=== PATIENT | female | born 1980 | race Hispanic/Latino ===

== ENCOUNTER 2019-09-20 12:05 | Emergency (ER) | payer BC, OTHER ==
--- NOTE | 2019-09-20 12:56 | RAD REPORT ---
EXAM DESCRIPTION: Bernie Single View09/20/2019 12:45 pm CLINICAL HISTORY: cough COMPARISON: none FINDINGS: The lungs appear clear of acute infiltrate. The heart is normal size IMPRESSION: No acute abnormalities displayed
--- OUTSIDE RECORDS SUMMARY | 2019-09-20 13:04 | XMS REPORT | Continuity of Care Document ---
:1980 Author Organization [facility] t Address [address] Daniel [address] [place] [id number] Care Team Providers Name Role Phone Unavailable Unavailable Unavailable Problems This patient has no known problems. Allergies, Adverse Reactions, Alerts This patient has no known allergies or adverse reactions. Medications This patient has no known medications. Procedures This patient has no known procedures. Results This patient has no known results.
--- NOTE | 2019-09-20 13:37 | ER ---
Nurse's Notes [facility] Name: Asiya Nye Age: 39 yrs Sex: Female : 1980 Arrival Date: 09/20/2019 Time: 12:08 Bed 13 Private MD: Diagnosis: Acute upper respiratory infection, unspecified Presentation: 09/19 12:11 Chief complaint: Patient states: "I have been having bad headache, my ears are hurting, ca1 chest tightness, nausea and feel real fatigued since Thursday". Denies fever. Reports cough and fever. Reports SOB with chest tightness. Coronavirus screen: Surgical mask placed on patient. Patient moved to private room, placed in contact and droplet isolation with eye protection until further assessment. Patient reports a cough. Patient reports shortness of breath or difficulty breathing. Patient denies measured and/or subjective temperature greater than 100.4F prior to today's visit. Patient denies travel on a cruise ship or to a country the [facility] currently lists as an affected area. Patient denies contact with known and/or suspected case of COVID-19. Ebola Screen: Patient negative for fever greater than or equal to 101.5 degrees Fahrenheit, and additional compatible Ebola Virus Disease symptoms Patient denies exposure to infectious person. Patient denies travel to an Ebola-affected area in the 21 days before illness onset. No symptoms or risks identified at this time. Initial Sepsis Screen: Does the patient meet any 2 criteria? No. Patient's initial sepsis screen is negative. Does the patient have a suspected source of infection? No. Patient's initial sepsis screen is negative. Risk Assessment: Do you want to hurt yourself or someone else? Patient reports no desire to harm self or others. Onset of symptoms was September 20, 2019. 12:11 Method Of Arrival: Ambulatory ca1 12:11 Acuity: ESTEBAN 3 ca1 Triage Assessment: 12:15 Headache History: The patient has had previous headaches and this one is similar to bp previous episodes. General: Appears in no apparent distress. uncomfortable, Behavior is cooperative, appropriate for age, anxious. Pain: Complains of pain in head Pain currently is 4 out of 10 on a pain scale. Pain began 1 day ago. Also complains of no other associated symptoms. EENT: No deficits noted. Reports nasal congestion. Neuro: Level of Consciousness is awake, alert, obeys commands, Oriented to person, place, time, situation, Appropriate for age Reports headache. Cardiovascular: No deficits noted. Respiratory: Reports cough that is. GI: No signs and/or symptoms were reported involving the gastrointestinal system. : No signs and/or symptoms were reported regarding the genitourinary system. Derm: No deficits noted. Musculoskeletal: No deficits noted. 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 - Social history:: Smoking status: Patient denies any tobacco usage or history of. - Family history:: not pertinent. - Hospitalizations: : No recent hospitalization is reported. Screenin:23 Abuse screen: Denies threats or abuse. Denies injuries from another. Nutritional bp screening: No deficits noted. Tuberculosis screening: No symptoms or risk factors identified. Fall Risk None identified. Assessment: 12:23 General: SEE TRIAGE NOTE. bp 14:13 Reassessment: PT D/C HOME AMBULATORY WITH FAMILY, DX WITH ACUTE VIRAL URI. bp Vital Signs: 12:11 BP 141 / 81; Pulse 98; Resp 15 S; Temp 98.9(TE); Pulse Ox 100% on R/A; Weight 130.18 kg ca1 (R); Height 5 ft. 2 in. (157.48 cm) (R); Pain 6/10; 14:00 BP 137 / 85; Pulse 87; Resp 16; Temp 98.9; Pulse Ox 100% ; bp 12:11 Body Mass Index 52.49 (130.18 kg, 157.48 cm) ca1 ED Course: 12:08 Patient arrived in ED. ag5 12:14 Triage completed. ca1 12:15 Jake Dumont MD is Attending Physician. rn 12:15 Arm band placed on right wrist. ca1 12:20 Femi Vega, MARIA ELENA is Primary Nurse. bp 12:23 Patient has correct armband on for positive identification. Bed in low position. Call bp light in reach. Side rails up X2. 12:47 XRAY Chest (1 view) In Process Unspecified. EDMS 14:25 No provider procedures requiring assistance completed. Patient did not have IV access bp during this emergency room visit. Administered Medications: No medications were administered Outcome: 13:36 Discharge ordered by . rn 14:26 Discharged to home ambulatory. bp 14:26 Condition: stable 14:26 Discharge instructions given to patient, Instructed on discharge instructions, follow up and referral plans. Demonstrated understanding of instructions, follow-up care. 14:26 Patient left the ED. bp Addendum: 09/23/2019 10:00 Addendum: Other pt notified of positive COVID results via telephone, by angel Muhammad advised to stay quarantined for 14 days and until symptoms have resolved for 72 hours. Signatures: Dispatcher [employer] EDMS Delilah Naranjo, RN Jake Arnett MD MD rn Peltier, Brian, RN RN bp Acob, Cheryl, RN RN ca1 Gaskin, Ajare ag5
--- NOTE | 2019-09-20 13:37 | EDPHYS ---
Physician Documentation [facility] Name: Asiya Nye Age: 39 yrs Sex: Female : 1980 Arrival Date: 09/20/2019 Time: 12:08 Bed 13 Private MD: ED Physician Jake Dumont HPI: 09/19 12:22 This 39 yrs old Female presents to ER via Ambulatory with complaints of rn Headache, Cough, Sneezing, Chest Pain. 12:23 The patient or guardian reports cough, that is intermittent, described as mild, with no rn sputum, flu symptoms. Onset: The symptoms/episode began/occurred 4 day(s) ago. Severity of symptoms: At their worst the symptoms were mild, in the emergency department the symptoms are unchanged. Modifying factors: The symptoms are alleviated by nothing, the symptoms are aggravated by nothing. Associated signs and symptoms: Pertinent positives: chest pain, earache, rhinorrhea, cough, congestion, sneezing, this patient has no pertinent positive symptoms. The patient has not experienced similar symptoms in the past. The patient has not recently seen a physician. Reports 4 days of cough, sneezing, headache, fatigue, congestion, ears aching. No sick contacts. Has not been tested. No sob. No abd pain/vomiting/diarrhea/rash.. 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 - Social history:: Smoking status: Patient denies any tobacco usage or history of. - Family history:: not pertinent. - Hospitalizations: : No recent hospitalization is reported. ROS: 12:23 Constitutional: Negative for fever, chills, and weight loss, Eyes: Negative for injury, rn pain, redness, and discharge, ENT: + congestion/sneezing/sinus pressure Neck: Negative for injury, pain, and swelling, Cardiovascular: Negative for chest pain, palpitations, and edema, Respiratory: Negative for shortness of breath, wheezing, and pleuritic chest pain, Abdomen/GI: Negative for abdominal pain, nausea, vomiting, diarrhea, and constipation, MS/Extremity: Negative for injury and deformity, Skin: Negative for injury, rash, and discoloration, Neuro: Negative for weakness, numbness, tingling, and seizure. Exam: 12:23 Constitutional: This is a well developed, well nourished patient who is awake, alert, rn and in no acute distress. Head/Face: Normocephalic, atraumatic. ENT: No sinus tenderness, no stridor Neck: Trachea midline, no thyromegaly or masses palpated, and no cervical lymphadenopathy. Supple, full range of motion without nuchal rigidity, or vertebral point tenderness. No Meningismus. Cardiovascular: Regular rate and rhythm. No pulse deficits. Respiratory: Speaking full sentences, no respiratory distress Skin: Warm, dry Neuro: Awake and alert, GCS 15 Vital Signs: 12:11 BP 141 / 81; Pulse 98; Resp 15 S; Temp 98.9(TE); Pulse Ox 100% on R/A; Weight 130.18 kg ca1 (R); Height 5 ft. 2 in. (157.48 cm) (R); Pain 6/10; 14:00 BP 137 / 85; Pulse 87; Resp 16; Temp 98.9; Pulse Ox 100% ; bp 12:11 Body Mass Index 52.49 (130.18 kg, 157.48 cm) ca1 MDM: 12:15 Patient medically screened. rn 13:35 Differential Diagnosis: Bronchitis Influenza Upper Respiratory Infection Sinusitis rn Viral Syndrome Pneumonia. Data reviewed: vital signs, nurses notes, lab test result(s), radiologic studies, plain films, and as a result, I will discharge patient. Counseling: I had a detailed discussion with the patient and/or guardian regarding: the historical points, exam findings, and any diagnostic results supporting the discharge/admit diagnosis, lab results, radiology results, the need for outpatient follow up, to return to the emergency department if symptoms worsen or persist or if there are any questions or concerns that arise at home. Special discussion: I discussed with the patient/guardian in detail that at this point there is no indication for admission to the hospital. It is understood, however, that if the symptoms persist or worsen the patient needs to return immediately for re-evaluation. ED course: COVID sent, strep/flu/CXR neg, most likely viral syndrome, will dc home. . 06/23 12:22 Order name: Strep; Complete Time: 13:35 rn 09/19 12:22 Order name: Flu; Complete Time: 13:35 rn 09/19 12:22 Order name: XRAY Chest (1 view); Complete Time: 13:18 rn 09/19 12:22 Order name: COVID-19 rn 09/19 13:29 Order name: Throat Culture EDME 09/19 12:22 Order name: Droplet/Contact Precautions; Complete Time: 12:27 rn 09/19 12:22 Order name: Labs collected and sent; Complete Time: 12:58 rn 09/19 12:22 Order name: O2 Per Protocol; Complete Time: 12:27 rn Administered Medications: No medications were administered Disposition: 09/20/19 13:36 Discharged to Home. Impression: Acute upper respiratory infection, unspecified. - Condition is Stable. - Discharge Instructions: Upper Respiratory Infection, Adult, Viral Respiratory Infection. - Work release form, Medication Reconciliation Form, Thank You Letter, Antibiotic Education, Prescription Opioid Use form. - Follow up: Private Physician; When: As needed; Reason: Recheck today's complaints, Re-evaluation by your physician. - Problem is new. - Symptoms are unchanged. Signatures: Dispatcher [employer] [facility] Jake Dumont MD MD rn Peltier, Brian, RN RN bp Acob, Cheryl RN RN ca1 Corrections: (The following items were deleted from the chart) 14:26 13:36 09/20/2019 13:36 Discharged to Home. Impression: Acute upper respiratory bp infection, unspecified. Condition is Stable. Forms are Medication Reconciliation Form, Thank You Letter, Antibiotic Education, Prescription Opioid Use. Follow up: Private Physician; When: As needed; Reason: Recheck today's complaints, Re-evaluation by your physician. Problem is new. Symptoms are unchanged. rn
[2019-09-20 14:43] VITALS: TEMP 98.9; O2SAT 100
[2019-09-20 14:45] VITALS: BP 137/85
== END 2019-09-20 14:26 | disposition home or self-care (01) ==
LOC: ER 12:05
DX: U07.1 COVID-19 (principal); J06.9 Acute upper respiratory infection, unspecified
CPT/HCPCS: 87070; 87081; 87804 ×2; 71045; 99283; U0002

== ENCOUNTER 2024-02-09 10:34 | Emergency (ER) | payer BC ==
--- OUTSIDE RECORDS SUMMARY | 2024-02-09 10:38 | XMS REPORT | Continuity of Care Document ---
Author Name Unknown Address [address] [facility] [address] [place] [address] [facility] thconnect Address [address] 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 Role Phone System MD, Provider Not In Primary Care Physicia n Unavailable DUNIA ALVAREZ Attending Clinician DUNIA Hayes Attending Clinician ACOSTA gEan Attending Clinician Unavailable Dunia Alvarez MD Attending Clinician + [phone] RUI CHAPA Attending Clinician Unavailable RUI CHAPA Attending Clinician Unavailable Rui Chapa PA-C Attending Clinician [phone], [facility] Attending Clinician Unavailable FLORY ROMAN Attending Clinician Unavailable FLORY ROMAN Attending Clinician Unavailable [email or web address] Attending Clinician Unavaila shayy Doctor Unassigned, [place] Attending Clinician U navailable KRANTHI MERINO Attending Clinician Unavailable Stephon Hyde Attending Clinician [phone] Kranthi Merino MD Attending Clinician [phone] DHRUV CIFUENTES Attending Clinician Unavailable Dhruv Cifuentes DO Attending Clinician [phone] Michelle Babcock DO Attending Clinician [phone] SHASTA DOUGLAS Attending Clinician Unavailable Shasta Douglas MD Attending Clinician [phone] DUNIA ALVAREZ Admitting Clinician FLORY Puente Admitting Clinician Unavailable [email or web address]_S Admitting Clinician UnavailStephon Loaiza Admitting Clinician Unavailable Payers Payer Name Policy Type Policy Number Effective Date Expirati on Date Source [facility] [id number] 2018 00:00:00 [id number] PPO [id number] 2020 00:00:00 Problems Condition Name Condition Details Condition Category Status Onset Date Resolution Date Last Treatment Date Treating Clinician Comments Source Abnormal uterine bleeding (AUB) Abnormal uterine bleeding (AUB) Disease Active 2023-03 00:00: 00 [facility] Thickened endometriu m Thickened endometriu m Disease Active 2023-03 00:00: 00 [facility] BMI 50.0-59.9, adult BMI 50.0-59.9, adult Disease Active 2019-03 0-14 00:00: 00 [facility] Laceration Laceration Disease Active 2013-03 00:00: 00 [facility] Laceration of flexor tendon of forearm, left, initial encounter Laceration of flexor tendon of forearm, left, initial encounter Disease Active 2013-03 00:00: 00 [facility] Numbness of index finger, left Numbness of index finger, left Disease Active 2013-03 00:00: 00 [facility] Laceration of flexor tendon of forearm, left, initial encounter Laceration of flexor tendon of forearm, left, initial encounter Disease Active 2013-03 00:00: 00 [facility] Anxiety Anxiety Disease Active [facility] Depression Depression Disease Active [facility] Heavy menses Heavy menses Disease Active [facility] Nephrolith iasis Nephrolith iasis Disease Active [facility] Allergies, Adverse Reactions, Alerts Allergy Name Allergy Type Status Severity Reaction(s) Onset Date Inactive Date Treating Clinician Comments Source NO KNOWN ALLERGIE S Drug Class Active [facility] Social History Social Habit Start Date Stop Date Quantity Comments Source Gender identity [facility] Sexual orientation [facility] Alcoholic beverage intake 2024-01-19 00:00:00 2024-01-19 00:00:00 Current drinker of alcohol (finding) [facility] Tobacco use and exposure 2024-01-04 00:00:00 2024-01-04 00:00:00 Smokeless tobacco non-user [facility] History of Social function 2023-12-22 00:00:00 2023-12-22 00:00:00 [facility] Alcohol intake 2023-01-05 00:00:00 2023-01-05 00:00:00 Current drinker of alcohol (finding) [facility] Tobacco Comment 2022-11-04 00:00:00 2022-11-04 00:00:00 5 ciggs a day [facility] Exposure to SARS-CoV-2 (event) 2022-02-04 00:00:00 2022-02-14 17:37:00 Not sure [facility] History SDOH Alcohol Frequency 2020-01-11 00:00:00 2020-01-11 00:00:00 2 [facility] History SDOH Alcohol Std Drinks 2020-01-11 00:00:00 2020-01-11 00:00:00 99 [facility] History SDOH Alcohol Binge 2020-01-11 00:00:00 2020-01-11 00:00:00 99 [facility] Alcohol Comment 2020-01-11 00:00:00 2020-01-11 00:00:00 Social Drinker [facility] History of tobacco use 2015-07-27 00:00:00 Cigarette Smoker [facility] Sex assigned at 1980 00:00:00 1980 00:00:00 [facility] Smoking Status Start Date Stop Date Source Smokes tobacco daily 2024-01-04 00:00:00 [facility] Ex-smoker 2020-01-11 00:00:00 2020-01-11 00:00:00 [facility] Medications Ordered Medication Name Filled Medication Name Start Date Stop Date Current Medication? Ordering Clinician Indication Dosage Frequency Signature (SIG) Comments Components Source ketorolac (TORADOL) injection 30 mg 2022-03 08:15: 00 03-11 07:39 :00 No 30mg 30 mg, Intramuscu lar, ONCE, 1 dose, On Thu03/11/23 at 0215, [facility] oseltamivir (TAMIFLU) capsule 75 mg 2022-03 08:15: 00 03-11 07:36 :00 No 75mg 75 mg, Oral, ONCE NOW, 1 dose, On Thu03/11/23 at 0215, Routine [facility] acetaminoph en (TYLENOL) tablet 650 mg 2022-03 08:15: 00 03-11 07:36 :00 No 650mg 650 mg, Oral, ONCE, 1 dose, On Thu03/11/23 at 0215, [facility] dexamethaso ne sod phos PF injection 10 mg 2022-03 07:45: 00 03-11 07:35 :00 No 10mg 10 mg, Intramuscu lar, ONCE, 1 dose, On Thu03/11/23 at 0145, [address] [facility] oseltamivir (TAMIFLU) 75 mg capsule 2022-03 00:00: 00 03-17 05:59 :00 No [id number] 75mg Take 1 capsule by mouth in the morning and 1 capsule in the evening. Do all this for [address] [facility] phenyleph-D M-acetamin- guaifen (MUCINEX FAST-MAX COLD-FLU) 10-20-650 mg/20 mL Liqd 2022-03 00:00: 00 03-17 05:59 :00 No [id number] 20mL Take 20 mL by mouth 4 (four) times daily for [address] [facility] benzocaine- menthoL (CEPACOL SORE THROAT, YVON-MEN,) lozenge 2022-03 00:00: 00 03-17 05:59 :00 No [id number] 1{lozen ge} Take 1 Lozenge by mouth every 4 (four) hours as needed for Sore throat for up to [address] [facility] MAGNESIUM ORAL 11-04 16:39: 14 01-03 00:00 :00 No Take by mouth. [facility] losartan 25 mg tablet 09-24 00:00: 00 01-03 00:00 :[address] [facility] amoxicillin -clavulanat e (AUGMENTIN) 875-125 mg per tablet 1 tablet 2021-03 03:45: 00 02-15 02:34 :00 No 1{tbl} 1 tablet, Oral, ONCE, 1 dose, On Thu02/14/22 at 2145, Routine
Reason for Anti-Infec tive: Documented Infection< br>Documen gary Infection Site: HEENT
D uration of Therapy: [address] [facility] iopamidol (ISOVUE 370-500 mL) injection 79 mL 2021-03 01:45: 00 02-15 02:00 :00 No [id number] 79mL 79 mL, Intravenou s, ONCE, 1 dose, On Thu02/14/22 at 2000, Routine [facility] amoxicillin -clavulanat e 875-125 mg per tablet 2021-03 00:00: 00 01-03 00:00 :00 No [id number] 1{tbl} Take 1 tablet by mouth every 12 (twelve) hours. [facility] methylPREDN ISolone (MEDROL, FANTA,) 4 mg tablets 09-04 00:00: 00 01-03 00:00 :00 No [id number] Take by mouth SEE-INSTRU CTIONS. follow package directions [facility] naproxen sodium (ANAPROX DS) 550 mg tablet 09-04 00:00: 00 01-03 00:00 :00 No [id number] 550mg Take 1 tablet by mouth 2 (two) times daily with meals. [facility] L-Tyrosine 500 MG capsule 08-24 16:00: 09 Yes Take by mouth. [facility] Methylcobal gallegos (V41-[id number] PO) 08-24 16:00: 09 Yes Take by mouth. [facility] L-Tyrosine 500 MG capsule 08-24 11:00: 09 Yes Take by mouth. [facility] Methylcobal gallegos (B95-FRRJAO PO) 08-24 11:00: 09 Yes Take by mouth. [facility] traZODONE (DESYREL) 50 mg tablet 2019-03 21:01: 09 Yes 50mg Take 50 mg by mouth at bedtime. [facility] MAGNESIUM ORAL 2019-03 21:01: 09 Yes Take by mouth. [facility] MAGNESIUM ORAL 2019-03 16:01: 09 Yes Take by mouth. [facility] traZODONE (DESYREL) 50 mg tablet 2019-03 16:01: 09 01-03 00:00 :00 No 50mg Take 50 mg by mouth at bedtime. [facility] ibuprofen 600 mg tablet 2018-03 00:00: 00 01-03 00:00 :00 No [id number] 600mg Take 1 tablet by mouth every 6 (six) hours as needed for Pain (scale 4-6). [facility] cyclobenzap rine 10 mg tablet 2018-03 00:00: 00 01-03 00:00 :00 No [id number] 10mg Take 1 tablet by mouth 3 (three) times daily. [facility] ondansetron 4 mg disintegrat ing tablet 2018-03 00:00: 00 01-03 00:00 :00 No [id number] 4mg Take 1 tablet by mouth every 8 (eight) hours as needed for Nausea and Vomiting (N/V). [facility] traZODONE (DESYREL) 50 mg tablet 04-11 16:32: 02 Yes 50mg Take 50 mg by mouth at bedtime. [facility] docusate (COLACE) 100 mg capsule 2013-03 00:00: 00 01-03 00:00 :00 No 100mg Take 1 Cap by mouth daily. [facility] acetaminoph en-codeine (TYLENOL #3) 300-30 mg tablet 2013-03- 00:00: 00 01-03 00:00 :00 No 1{tbl} Take 1 Tab by mouth every 4 (four) hours as needed for Pain (scale 4-6). [facility] FERROUS SULFATE 300 (60) MG ORAL TAB 05-07 00:00: 00 01-03 00:00 :00 No Take one tablet by mouth twice daily [facility] Vital Signs Vital Name Observation Time Observation Value Comments S ource Systolic blood pressure 2024-01-19 13:12:00 127 mm[Hg] [facility] Diastolic blood pressure 2024-01-19 13:12:00 79 mm[Hg] [facility] Heart rate 2024-01-19 13:12:00 78 /min [facility] Respiratory rate 2024-01-19 13:12:00 18 /min [facility] Body height 2024-01-19 13:12:00 157.5 cm [facility] Body weight 2024-01-19 13:12:00 112.175 kg [facility] BMI 2024-01-19 13:12:00 45.23 kg/m2 [facility] Systolic blood pressure 2024-01-11 18:00:00 160 mm[Hg] [facility] Diastolic blood pressure 2024-01-11 18:00:00 99 mm[Hg] [facility] Heart rate 2024-01-11 18:00:00 80 /min [facility] Respiratory rate 2024-01-11 18:00:00 14 /min [facility] Oxygen saturation in Arterial blood by Pulse oximetry 2024-01-11 18:00:00 100 /min [facility] Body temperature 2024-01-11 15:21:00 36.89 Pia [facility] Body height 2024-01-11 15:21:00 157.5 cm [facility] Body weight 2024-01-11 15:21:00 111.131 kg [facility] BMI 2024-01-11 15:21:00 44.81 kg/m2 [facility] Systolic blood pressure 2024-01-08 14:25:00 164 mm[Hg] [facility] Diastolic blood pressure 2024-01-08 14:25:00 98 mm[Hg] [facility] Heart rate 2024-01-08 14:24:00 76 /min [facility] Body temperature 2024-01-08 14:24:00 36.33 Pia [facility] Respiratory rate 2024-01-08 14:24:00 18 /min [facility] Body height 2024-01-08 14:24:00 152.4 cm [facility] Body weight 2024-01-08 14:24:00 112.855 kg [facility] BMI 2024-01-08 14:24:00 48.59 kg/m2 [facility] Systolic blood pressure 2024-01-04 18:35:00 131 mm[Hg] [facility] Diastolic blood pressure 2024-01-04 18:35:00 87 mm[Hg] [facility] Heart rate 2024-01-04 18:35:00 87 /min [facility] Body temperature 2024-01-04 18:35:00 36.72 Pia [facility] Respiratory rate 2024-01-04 18:35:00 18 /min [facility] Body height 2024-01-04 18:35:00 152.4 cm [facility] Body weight 2024-01-04 18:35:00 112.946 kg [facility] BMI 2024-01-04 18:35:00 48.63 kg/m2 [facility] Systolic blood pressure 2023-12-22 13:49:00 131 mm[Hg] [facility] Diastolic blood pressure 2023-12-22 13:49:00 81 mm[Hg] [facility] Heart rate 2023-12-22 13:49:00 75 /min [facility] Body temperature 2023-12-22 13:49:00 36.67 Pia [facility] Respiratory rate 2023-12-22 13:49:00 18 /min [facility] Body height 2023-12-22 13:49:00 152.4 cm [facility] Body weight 2023-12-22 13:49:00 113.581 kg [facility] BMI 2023-12-22 13:49:00 48.90 kg/m2 [facility] Oxygen saturation in Arterial blood by Pulse oximetry 2023-12-22 13:49:00 100 /min [facility] Systolic blood pressure 2023-03-11 07:57:00 129 mm[Hg] [facility] Diastolic blood pressure 2023-03-11 07:57:00 81 mm[Hg] [facility] Heart rate 2023-03-11 07:57:00 103 /min [facility] Body temperature 2023-03-11 07:57:00 38.22 Pia [facility] Respiratory rate 2023-03-11 07:57:00 18 /min [facility] Oxygen saturation in Arterial blood by Pulse oximetry 2023-03-11 07:57:00 95 /min [facility] Body height 2023-03-11 07:19:00 152.4 cm [facility] Body weight 2023-03-11 07:19:00 128.368 kg [facility] BMI 2023-03-11 07:19:00 55.27 kg/m2 [facility] Systolic blood pressure 2023-01-05 18:51:00 130 mm[Hg] [facility] Diastolic blood pressure 2023-01-05 18:51:00 75 mm[Hg] [facility] Heart rate 2023-01-05 18:51:00 85 /min [facility] Body temperature 2023-01-05 18:51:00 37.06 Pia [facility] Respiratory rate 2023-01-05 18:51:00 17 /min [facility] Body height 2023-01-05 18:51:00 157.5 cm [facility] Body weight 2023-01-05 18:51:00 135.172 kg [facility] BMI 2023-01-05 18:51:00 54.50 kg/m2 [facility] Systolic blood pressure 2022-11-04 21:37:00 135 mm[Hg] [facility] Diastolic blood pressure 2022-11-04 21:37:00 80 mm[Hg] [facility] Heart rate 2022-11-04 21:37:00 87 /min [facility] Respiratory rate 2022-11-04 21:37:00 18 /min [facility] Body height 2022-11-04 21:37:00 157.5 cm [facility] Body weight 2022-11-04 21:37:00 136.986 kg [facility] BMI 2022-11-04 21:37:00 55.24 kg/m2 [facility] Systolic blood pressure 2022-02-14 23:38:00 170 mm[Hg] [facility] Diastolic blood pressure 2022-02-14 23:38:00 94 mm[Hg] [facility] Heart rate 2022-02-14 23:38:00 87 /min [facility] Body temperature 2022-02-14 23:38:00 37.17 Pia [facility] Respiratory rate 2022-02-14 23:38:00 20 /min [facility] Body weight 2022-02-14 23:38:00 129.275 kg [facility] BMI 2022-02-14 23:38:00 52.13 kg/m2 [facility] Oxygen saturation in Arterial blood by Pulse oximetry 2022-02-14 23:38:00 99 /min [facility] Body temperature 2021-09-04 17:46:00 37.17 Pia [facility] Respiratory rate 2021-09-04 17:46:00 18 /min [facility] Body height 2021-09-04 17:46:00 [facility] 2021-09-04 17:46:00 139.254 kg [facility] BMI 2021-09-04 17:46:00 56.15 kg/m2 [facility] Oxygen saturation in Arterial blood by Pulse oximetry 2021-09-04 17:46:00 96 /min [facility] Systolic blood pressure 2021-09-04 17:46:00 144 mm[Hg] [facility] Diastolic blood pressure 2021-09-04 17:46:00 104 mm[Hg] [facility] Heart rate 2021-09-04 17:46:00 94 /min [facility] Body height 2020-12-06 14:45:[facility] Body weight 2020-12-06 14:45:00 139[facility] BMI 2020-12-06 14:45:00 55.27 [facility]2 [facility] Systolic blood pressure 2020-08-24 15:59:00 134 mm[Hg] [facility] Diastolic blood pressure 2020-08-24 15:59:00 84 mm[Hg] [facility] Heart rate 2020-08-24 15:59:00 94 /min [facility] Body temperature 2020-08-24 15:59:00 37.56 Pia [facility] Body height 2020-08-24 15:59:00 158.8 cm [facility] Body weight 2020-08-24 15:59:00 136.578 [facility] BMI 2020-08-24 15:59:00 54.19 [facility]m2 [facility] Systolic blood pressure 2020-01-11 21:21:00 132 mm[Hg] [facility] Diastolic blood pressure 2020-01-11 21:21:00 90 mm[Hg] [facility] Heart rate 2020-01-11 20:55:00 95 /min [facility] Body temperature 2020-01-11 20:55:00 36.89 Pia [facility] Respiratory rate 2020-01-11 20:55:00 20 /min [facility] Body height 2020-01-11 20:55:00 157.5 cm [facility] Body weight 2020-01-11 20:55:00 133.811 kg [facility] BMI 2020-01-11 20:55:00 53.96 kg/m2 [facility] Systolic blood pressure 2020-01-11 21:21:00 132 mm[Hg] [facility] Diastolic blood pressure 2020-01-11 21:21:00 90 mm[Hg] [facility] Heart rate 2020-01-11 20:55:00 95 /min [facility] Body temperature 2020-01-11 20:55:00 36.89 Pia [facility] Respiratory rate 2020-01-11 20:55:00 20 /min [facility] Body height 2020-01-11 20:55:00 157.5 cm [facility] Body weight 2020-01-11 20:55:00 133.811 kg [facility] BMI 2020-01-11 20:55:00 53.96 kg/m2 [facility] Procedures Procedure Date / Time Performed Performing Clinician Source POCT TEST 2024-01-11 15:58:00 Rui Chapa [facility] COMP. METABOLIC PANEL ([id number]) 2024-01-11 15:54:00 Charu Chapashua [facility] CBC WITH DIFF 2024-01-11 15:54:00 Rui Chapa [facility] URINALYSIS 2024-01-11 15:54:[address] [facility] HB ABO GROUPING 2024-01-11 15:54:00 Rui Chapa [facility] POCT TEST 2024-01-04 00:00:00 Annie abraham Dunia [facility] US PELVIS COMPLETE WITH TRANSVAGINAL 2023-12-31 14:08:32 Antonio [facility] BI ULTRASOUND BREAST LIMITED RIGHT 2023-12-04 16:57:07 Antonio [facility] BI DIAGNOSTIC TOMOSYNTHESIS BILATERAL 2023-12-04 16:08:03 Antonio [facility] BI ULTRASOUND BREAST LIMITED RIGHT 2023-06-05 15:26:39 Mortensen-Armando, Dunia [facility] BI DIAGNOSTIC TOMOSYNTHESIS RIGHT 2023-06-05 15:01:34 Antonio Dunia [facility] XR CHEST 2 VW 2023-03-11 07:28:22 Flory Roman [facility] RAPID STREP SCREEN FOR GROUP A 2023-03-11 07:20:00 Flory Roman [facility] RAPID INFLUENZA A/B 2023-03-11 07:20:00 Amairani Roman [facility] NOTICE OF PRIVACY PRACTICES 2023-03-11 07:11:31 Doctor Unassigned, [place] [facility] CONSENT/REFUSAL FOR DIAGNOSIS AND TREATMENT 2023-03-11 07:10:48 Doctor Unassigned, [place] [facility] BI ULTRASOUND BREAST COMPLETE BILATERAL 2022-12-11 20:14:28 Antonio [facility] BI DIAGNOSTIC TOMOSYNTHESIS RIGHT 2022-12-11 19:31:34 Antonio [facility] ASSIGNMENT OF BENEFITS 2022-11-04 21:11:30 Docto r Unassigned, [place] [facility] CT MAXILLOFACIAL/MANDIBLE W CONTRAST 2022-02-15 01:53:43 Stephon Lopez Yareli [facility] COMP. METABOLIC PANEL ([id number]) 2022-02-15 01:34:00 Stephon Lopez [facility] CBC WITH DIFF 2022-02-15 01:34:00 Stephon Lopez [facility] CONSENT/REFUSAL FOR DIAGNOSIS AND TREATMENT 2022-02-14 23:17:48 Doctor Unassigned, [place] [facility] MAGNESIUM 2021-09-04 18:44:00 Dhruv Cifuentes [facility] COMP. METABOLIC PANEL ([id number]) 2021-09-04 18:44:00 Dhruv Cifuentes [facility] CBC WITH DIFF 2021-09-04 18:44:00 Dhruv Cifuentes [facility] URINALYSIS 2021-09-04 18:44:00 Dhruv Cifuentes [facility] NOTICE OF PRIVACY PRACTICES 2021-09-04 17:35:45 Doctor Unassigned, [place] [facility] CONSENT/REFUSAL FOR DIAGNOSIS AND TREATMENT 2021-09-04 17:33:55 Doctor Unassigned, [place] [facility] COMPREHENSIVE METABOLIC PANEL 2020-08-24 00:00:00 [facility] LIPID PANEL 2020-08-24 00:00:00 [facility] VITAMIN B12 2020-08-24 00:00:00 [facility] FOLATE 2020-08-24 00:00:00 [facility] HEMOGLOBIN A1C 2020-08-24 00:00:00 [facility] PTH, INTACT 2020-08-24 00:00:00 [facility] VITAMIN E 2020-08-24 00:00:00 [facility] VITAMIN A 2020-08-24 00:00:00 [facility] VITAMIN B1, WHOLE BLOOD 2020-08-24 00:00:00 [facility] IRON AND TIBC 2020-08-24 00:00:00 [facility] TSH W/REFLEX TO FT4 2020-08-24 00:00:00 [facility] CBC (INCLUDES DIFF/PLT) (REFL) 2020-08-24 00:00:00 [facility] QUESTASSURED 25-OH VIT D, (D2,D3) 2020-08-24 00:00:00 [facility] NO SHOW OR MISSED APPOINTMENT POLICY ACKNOWLEDGEMENT 2020-01-11 20:15:36 Doctor Unassigned, [place] [facility] Encounters Start Date/Time End Date/Time Encounter Type Admission Type Attending Clinicians Care Facility Care Department Encounter ID Source 2024-01-19 14:13:16 Outpatient DUNIA JEONG [facility] [id number] [facility] 2020-08-24 13:48:25 Outpatient ACOSTA CORTES [facility] [id number] [facility] 2024-03-04 15:30:00 2024-03-04 15:30:00 Outpatient [place] [id number] 2024-02-19 15:00:00 2024-02-19 15:00:00 Outpatient R MORTENSEN-HILARIO S, DUNIA [facility]AR[id number] 2024-01-19 00:00:00 2024-01-19 10:41:22 [facility] [id number] [facility] 2024-01-19 08:15:00 2024-01-19 08:20:29 Outpatient R TIMUR-HILARIO S, DUNIA TIMUR[facility]HILARIO S, [facility] [id number] [facility] 2024-01-19 08:15:00 2024-01-19 08:20:29 [facility] 1..114 [id number] [facility] 2024-01-11 10:24:00 2024-01-11 13:28:00 Emergency X RUI CHAPA [facility] [id number] [facility] 2024-01-11 10:24:00 2024-01-11 13:28:00 Emergency Rui Chapa [facility] [id number] [id number] [facility] 2024-01-11 00:00:00 2024-01-11 13:17:39 [facility] [id number] [id number] [id number] [facility] 2024-01-08 09:30:00 2024-01-08 09:46:13 Outpatient R MORTENSEN-HILARIO S, DUNIA MORTENSEN-HILARIO S, DUNIA [facility] [id number] [facility] 2024-01-08 09:30:00 2024-01-08 09:46:13 Office Visit Mortensen-Hilario s, Dunia [facility] 1.2.840.114 350.1.13.10 4.2.7.2.[id number] [facility] 2024-01-04 14:00:00 2024-01-04 14:10:10 Outpatient R MORTENSEN-HILARIO S, DUNIA MORTENSEN-HILARIO S, DUNIA [facility] [id number] [facility] 2024-01-04 14:00:00 2024-01-04 14:10:10 Office Visit Mortensen-Hilario s, Dunia [facility] 1.2.840.114 350.1.13.10 4.2.7.2.[id number] [facility] 2023-12-31 08:26:41 2023-12-31 23:59:00 Outpatient R MORTENSEN-HILARIO S, DUNIA MORTENSEN-HILARIO S, DUNIA [facility] [id number] [facility] 2023-12-31 08:26:41 2023-12-31 23:59:00 Hospital Encounter Mortensen-Hilario s, Dunia [facility] 1.2.840.114 350.1.13.10 4.2.7.2.[id number] [facility] 2023-12-22 09:30:00 2023-12-22 09:45:00 Bullet Swaging Machine Adjuster Visit 2, Adc Lab Mortensen-Hilario s, Dunia 2, Adc Lab [facility] 1.2.840.114 350.1.13.10 4.2.7.2.[id number] [facility] 2023-12-22 08:45:00 2023-12-22 09:04:42 Outpatient R MORTENSEN-HILARIO S, DUNIA MORTENSEN-HILARIO S, DUNIA [facility] [id number] [facility] 2023-12-22 08:45:00 2023-12-22 09:04:42 Office Visit Mortensen-Hilario sJohannaDunia [facility] 1.2.840.114 350.1.13.10 4.2.7.2.[id number] [facility] 2023-12-17 11:00:00 2023-12-17 11:00:00 Outpatient R MORTENSEN-HILARIO S, DUNIA MORTENSEN-HILARIO S, DUNIA [facility] [id number] [facility] 2023-12-04 10:30:00 2023-12-04 23:59:00 Hospital Encounter Mortensen-Hilario s, Dunia [facility] 1.2840.114 350.1.13.10 4.2.7.2.[id number] [facility] 2023-12-04 10:04:48 2023-12-04 10:29:00 Outpatient R MORTENSEN-HILARIO S, DUNIA MORTENSEN-HILARIO S, DUNIA [facility] [id number] [facility] 2023-12-04 10:04:48 2023-12-04 10:29:00 Hospital Encounter Mortensen-Hilario s, Dunia [facility] 1.2.840.114 350.1.13.10 4.2.7.2.[id number] [facility] 2023-06-05 08:09:32 2023-06-05 23:59:00 Hospital Encounter Elda bay [facility] 1.2.840.114 350.1.13.10 4.2.7.2.[id number] [facility] 2023-06-05 08:08:56 2023-06-05 08:08:56 Outpatient R ELDA S, DUNIA ELDA S, [facility] [id number] [facility] 2023-06-05 08:08:56 2023-06-05 08:08:56 Hospital Encounter Elda s [facility] 1.2.840.114 350.1.13.10 4.2.7.2.[id number] [facility] 2023-06-05 00:00:00 2023-06-05 00:00:00 [facility] 1.2.840.114 350.1.13.10 4.2.7.2.[id number] [facility] 2023-03-11 01:22:00 2023-03-11 01:59:00 Emergency [facility] ERT [id number] [facility] 2023-03-11 01:22:00 2023-03-11 01:59:00 Emergency Harrison, [facility] 1.2.840.114 350.1.13.10 4.2.7.2.[id number] [facility] 2023-01-28 00:00:00 2023-01-28 00:00:00 Outpatient GC_GCBZW_Ka diyala_S [facility] [id number] [facility] 2023-01-05 14:00:00 2023-01-05 14:30:00 Office Visit [facility]Dun[facility] 1..840.114 350.1.13.10 4.2.7.2.[id number] [facility] 2023-01-05 14:00:00 2023-01-05 14:00:00 Outpatient R MORTENSEN-HILARIO S, DUNIA MORTENSEN-HILARIO S, DUNIA [facility] [id number] [facility] 2022-12-12 00:00:00 2022-12-12 00:00:00 Case Management Mortensen-Hilario sJohannaDunia [facility] 1.84.114 350.1.13.10 4.2.7.2.[id number] [facility] 2022-12-11 13:35:47 2022-12-11 23:59:00 Outpatient R MORTENSEN-HILARIO S, DUNIA MORTENSEN-HILARIO S, DUNIA [facility] [id number] [facility] 2022-12-11 13:35:47 2022-12-11 23:59:00 Hospital Encounter Mortensen-Hilario s, Dunia [facility] 1..840.114 350.1.13.10 4.2.7.2.[id number] [facility] 2022-12-11 13:34:52 2022-12-11 13:34:52 Hospital Encounter Mortensen-Hilario s, Dunia [facility] 1.840.114 350.1.13.10 4.2.7.2.[id number] [facility] 2022-11-21 00:00:00 2022-11-21 00:00:00 Case Management Mortensen-Hilario s, Dun[facility] 1.2840.114 350.1.13.10 4.2.7.2.[id number] [facility] 2022-11-13 11:31:14 2022-11-13 23:59:00 Hospital Encounter Mortensen-Hilario sJohannaDunia [facility] 1.2840.114 350.1.13.10 4.2.7.2.[id number] [facility] 2022-11-13 11:30:56 2022-11-13 11:30:56 Outpatient R MORTENSEN-HILARIO S, DUNIA MORTENSEN-HILARIO S, DUNIA [facility] [id number] [facility] 2022-11-13 11:30:56 2022-11-13 11:30:56 Hospital Encounter Mortensen-Hilario s, Dunia [facility] 1.2840.114 350.1.13.10 4.2.7.2.[id number] [facility] 2022-11-04 16:30:00 2022-11-04 16:54:11 Outpatient R MORTENSEN-HILARIO S, DUNIA MORTENSEN-HILARIO S, DUNIA [facility] [id number] [facility] 2022-11-04 16:30:00 2022-11-04 16:54:11 Office Visit Mortensen-Hilario s, Dunia [facility] 1.2840.114 350.1.13.10 4.2.7.2.[id number] [facility] 2022-11-04 00:00:00 2022-11-04 00:00:00 Orders Only Doctor Unassigned, [facility] 1.2840.114 350.1.13.10 4.2.7.2.[id number] [facility] 2022-07-14 14:00:00 2022-07-14 14:00:00 Outpatient R MORTENSEN-HILARIO S, DUNIA TIMUR-HILARIO S, DUNIA [facility] [id number] [facility] 2022-02-14 17:39:00 2022-02-14 20:46:00 Emergency X KRANTHI MERINO [facility] ERT [id number] [facility] 2022-02-14 17:39:00 2022-02-14 20:46:00 Emergency Stephon Lopez Brent J [facility] 1.2.840.114 350.1.13.10 4.2.7.2.[id number] [facility] 2021-09-04 12:48:00 2021-09-04 14:57:00 Emergency DHRUV BARNES [facility] ERT [id number] [facility] 2021-09-04 12:48:00 2021-09-04 14:57:00 Emergency Dhruv Cifuentes [facility] 1.2.840.114 350.1.13.10 4.2.7.2.[id number] [facility] 2021-03-20 00:00:00 2021-03-20 00:00:00 Telephone Yoko Michelle [facility] 1.2.840.114 350.1.13.58 9.2.7.2.686 [id number] [facility] 2021-01-11 10:00:00 2021-01-11 10:00:00 Outpatient R SHASTA DOUGLAS [facility] [id number] [facility] 2020-12-06 09:36:47 2020-12-06 10:22:45 Nutrition Acosta Cortes [facility] AND [facility]OM[facility] 1.2.840.114 350.1.13.58 9.2.7.2.686 [id number] [facility] 2020-09-04 00:00:00 2020-09-04 00:00:00 Telephone Michelle Babcock [facility] 1.2.840.114 350.1.13.58 9.2.7.2.686 [id number] [facility] 2020-08-24 10:37:13 2020-08-24 12:23:35 Office Visit Michelle Babcock [facility] [place] [facility] AND WOMENS 1.2.840.114 350.1.13.58 9.2.7.2.686 [id number] [facility] 2020-01-23 00:00:00 2020-01-23 00:00:00 Telephone AdShasta chatterjee [facility] [place] [facility] 1.2.840.114 350.1.13.10 4.2.7.2.[id number] [facility] 2020-01-23 00:00:00 2020-01-23 00:00:00 Telephone AdShsata chatterjee [facility] [place] [facility] 1.2.840.114 350.1.13.10 4.2.7.2.686 [id number] 2020-01-11 15:16:42 2020-01-11 16:34:49 Office Visit Adum, Shasta Chatterjee [facility] [place] [facility] 1.2.840.114 350.1.13.10 4.2.7.2.[id number] [facility] 2020-01-11 15:16:42 2020-01-11 16:34:49 Office Visit Adum, Shasta Chatterjee [facility] 1.2.840.114 350.1.13.10 4.2.7.2.686 [id number] 2020-01-11 15:30:00 2020-01-11 15:30:00 Outpatient R ADUM SHASTA [facility] [id number] [facility] 2020-01-11 00:00:00 2020-01-11 00:00:00 Orders Only Doctor Unassigned, [facility] 1.2.840.114 350.1.13.10 4.2.7.2.[id number] [facility] Results Test Description Test Time Test Comments Results Result Co mments Source [facility] [id number] 18:59:00* Test Item Value Reference Range Interpretation Comme nts POCT PREG (test code = 1605) Negative On board controls acceptable with C Line (test code = 3574) Yes POCT PREG LOT # (test code = 3575) POCT PREG TEST DATE ( test code = 3576) [facility] COMPLETE WITH [id number] 14:16:16HISTORY: ?AUB. TECHNIQUE: Both transabdominal and transvaginal pelvic ultrasound studieswere completed by the technologist. FINDINGS: Comparison has been made with previous ultrasound study of11/13/2022. Uterus is of normal size and shape, measures approximately 8.5 x 5.0 x 6.3cm in size with homogeneous echo texture of the myometrium. Small nabothiancysts are seen in the cervix, the largest is 15mm . Largest nabothian cystcontains thick mildly echogenic lesion of secretions. Endometrial echo complex is 15 mm ?(video image #47 out of 170 of longsection). No free fluid in the cul-de-sac. Rightovary is 3.6 x 2.6 x 1.9 cm ( 9.16 ml) and left ovary is 2.8 x 2.1 x1.7 cm ( 5.08 ml). CONCLUSIONS: Thickened endometrial stripe with heterogeneous echogenicity,suggestive of cystic endometrial hyperplasia.[facility] ULTR[facility] BREAST LIMITED [id number] 20:12:13Examination:BI DIAGNOSTIC TOMOSYNTHESIS BILATERALBI ULTRASOUND BREAST LIMITED RIGHT History:Patientis 43 year old and is seen for 6-month follow-up of multiple right breast findings:1. Again noted is a ridge of normal-appearing breast tissue with associated superimposed cysts in the right breast at 1:00, 15 cm from the nipple; favored to correlate with the stable appearing asymmetry in the superior right breast, posterior depth which is best seen on RS MLO image 57 of 99 and R MLO image 62 of 89. Short interval follow-up ultrasound is recommended in 6 months (at the time of annual bilateral mammogram) to document stability x 1 year. BI-RADS 3.2. Again noted is a stable appearing 12 mm complicated cyst versus mass in the right breast at 4:00, 5 cm from the nipple. Short interval follow-upultrasound is recommended in 6 months (at the time of annual bilateral mammogram) to document stability x 1 year. BI- RADS 3. Computer-aided detection (CAD) utilized. Comparisons: 06/05/2023 BI DIAGNOSTIC TOMOSYNTHESIS RIGHT, 06/05/2023 BI ULTRASOUND BREAST LIMITED RIGHT, 12/11/2022 BI ULTRASOUND BREAST COMPLETE BILATERAL, 12/11/2022 BI DIAGNOSTIC TOMOSYNTHESIS RIGHT, and 11/13/2022 BI SCREENING TOMOSYNTHESIS BILATERAL Findings:The breasts are heterogeneously dense, which may obscure small masses. LeftBI DIAGNOSTIC TOMOSYNTHESIS BILATERALThere is no evidence of suspicious masses, calcifications, or other abnormal findings in the left breast. There are multiple, bilateral, oval benign-appearing masses. ?The ultrasound performed in 2022 demonstrated multiple cysts. RightBI DIAGNOSTIC TOMOSYNTHESIS BILATERALThere has been no interval change of the asymmetry in the upper central breast, posterior depth, 15 cm from the nipple ( R MLO 55/91). BI ULTRASOUND BREAST LIMITED RIGHTTargeted ultrasound of the right breast and axilla was performed. There are numerous similar-appearing subcentimeter cysts at 1 o'clock, 15 cm from the nipple, correlating with the mammographic finding. There is a stable 1.2 x 1.2 x 0.5 cm oval circumscribed hypoechoic mass at 4 o'clock, 5 cm from nipple. There zi normal-appearing axillary level I lymph node. Impression: One year stability of the numerous right breast subcentimeter cysts at 1 o'clock, 15 cm from the nipple and of the right breast 1.2 cm oval circumscribed hypoechoic mass at 4 o'clock, 5 cm from the nipple. Follow-up imaging in 12 months isrecommended to establish two years of stability. BIRADS 3. No left mammographic evidence of malignancy. Recommendation:Annual mammographic follow-up - Leftort interval follow-up ultrasound 12 months - RightShort interval follow-up mammogram 12 months - Right These findings and recommendations were discussed in detail with the patient at the conclusion of today's examination. BI-RADS Category: Left 2 - BenignRight 3 - Probably Benign I, Pratik Mcconnell MD ?personally reviewed the study and agree with the resident's/fellow's report.[facility] DIAGNOST[facility] T[facility]YNTHES[facility] [id number] 20:12:13Examination:BI DIAGNOSTIC TOMOSYNTHESIS BILATERALBI ULTRASOUND BREAST LIMITED RIGHT History:Patientis 43 year old and is seen for 6-month follow-up of multiple right breast findings:1. Again noted is a ridge of normal-appearing breast tissue with associated superimposed cysts in the right breast at 1:00, 15 cm from the nipple; favored to correlate with the stable appearing asymmetry in the superior right breast, posterior depth which is best seen on RS MLO image 57 of 99 and R MLO image 62 of 89. Short interval follow-up ultrasound is recommended in 6 months (at the time of annual bilateral mammogram) to document stability x 1 year. BI-RADS 3.2. Again noted is a stable appearing 12 mm complicated cyst versus mass in the right breast at 4:00, 5 cm from the nipple. Short interval follow-upultrasound is recommended in 6 months (at the time of annual bilateral mammogram) to document stability x 1 year. BI-RADS 3. Computer-aided detection (CAD) utilized. Comparisons: 06/05/2023 BI DIAGNOSTIC TOMOSYNTHESIS RIGHT, 06/05/2023 BI ULTRASOUND BREAST LIMITED RIGHT, 12/11/2022 BI ULTRASOUND BREAST COMPLETE BILATERAL, 12/11/2022 BI DIAGNOSTIC TOMOSYNTHESIS RIGHT, and 11/13/2022 BI SCREENING TOMOSYNTHESIS BILATERAL Findings:The breasts are heterogeneously dense, which may obscure small masses. LeftBI DIAGNOSTIC TOMOSYNTHESIS BILATERALThere is no evidence of suspicious masses, calcifications, or other abnormal findings in the left breast. There are multiple, bilateral, oval benign-appearing masses. ?The ultrasound performed in 2022 demonstrated multiple cysts. RightBI DIAGNOSTIC TOMOSYNTHESIS BILATERALThere has been no interval change of the asymmetry in the upper central breast, posterior depth, 15 cm from the nipple ( R MLO 55/91). BI ULTRASOUND BREAST LIMITED RIGHTTargeted ultraso und of the right breast and axilla was performed. There are numerous similar- appearing subcentimeter cysts at 1 o'clock, 15 cm from the nipple, correlating with the mammographic finding. There is a stable 1.2 x 1.2 x 0.5 cm oval circumscribed hypoechoic mass at 4 o'clock, 5 cm from nipple. There zi normal- appearing axillary level I lymph node. Impression: One year stability of the numerous right breast subcentimeter cysts at 1 o'clock, 15 cm from the nipple and of the right breast 1.2 cm ovalcircumscribed hypoechoic mass at 4 o'clock, 5 cm from the nipple. Follow-up imaging in 12 months isrecommended to establish two years of stability. BIRADS 3. No left mammographic evidence of malignancy. Recommendation:Annual mammographic follow-up - LeftShort interval follow-up ultrasound 12 months - RightShort interval follow-up mammogram 12 months - Right These findings and recommendations were discussed in detail with the patient at the conclusion of today's examination. BI-RADS Category: Left 2 - BenignRight 3 - Probably Benign I, Pratik Mcconnell MD ?personally reviewed the stud y and agree with the resident's/fellow's report.[facility] hospital ULTRASOUND BREAST LIMITED [id number] 17:13:21Examination:BI DIAGNOSTIC TOMOSYNTHESIS RIGHTBI ULTRASOUND BREAST LIMITED RIGHT History:Patient is 43 year old and is seen for: ?Fu. ? Comparisons: 12/11/2022 BI DIAGNOSTIC TOMOSYNTHESIS RIGHT and 11/13/2022 BI SCREENING TOMOSYNTHESIS BILATERAL Prior exam with the following findings: Right: - Thereis a ?ridge of fibroglandular breast tissue with confluent innumerable subcentimeter simple cysts seen at 1 o'clock in the posterior depth, 15 cm from the nipple. This favor to correlate with the mammogram findings. Short term follow up 3D mammogram and ultrasound in 6 months is recommended to document stability and exclude an underlying abnormality. -A 13 mm oval, parallel, hypoechoic mass at 4 o'clock, 5 cm from the nipple. ?Short term follow up ultrasound in 6 months is recommended to document stability CURRENT EXAM: ? Findings:BI DIAGNOSTIC TOMOSYNTHESIS RIGHTThe right breast is heterogeneously dense, which may obscure small masses. Again noted is a stable appearing asymmetry in the superior right breast, posterior depth. This is best seen on RSMLO image 57 of 99 and RMLO image 62 of 89. Again noted are scattered oval circumscribed benign-appearing masses throughout the right breast. BI ULTRASOUND BREAST LIMITED RIGHTTargeted right breast ultrasound was obtained. Again noted is a stable appearing 40 mm ridge of breast tissue with superimposed cysts in the breast at 1 o'clock, 15cm from the nipple. ?This is favored to correlate with the stable appearing mammographic asymmetry in the superior right breast, posterior depth. ?No associated vascularity is noted. Again noted at 4:00, 5 cm from the nipple is a 11 x 5 x 12 mm complicated cyst versus mass (this previously [id number] mm in greatest dimension); accounting for differences in sonographic technique this appears stable in appearance since the prior exam. The visualized level 1 axillary lymph nodes appear unremarkabl e. Impression: Right: 1. ?Again noted is a ridge of normal-appearing breast tissue with associated superimposed cysts in the right breast at 1:00, 15 cm from the nipple; favored to correlate with thestable appearing asymmetry in the superior right breast, posterior depth which is best seen on RS MLO image 57 of 99 and R MLO image 62 of 89. ?Short interval follow-up ultrasound is recommended in 6months (at the time of annual bilateral mammogram) to document stability x 1 year. ?BI-RADS 3. 2. ?Again noted is a stable appearing 12 mm complicated cyst versus mass in the right breast at 4:00, 5 cm from the nipple. ?Short interval follow-up ultrasound is recommended in 6 months (at the time of annual bilateral mammogram) to document stability x 1 year. ?BI-RADS 3. Recommendation:Short interval follow-up ultrasound 6 months - Right ? Clinical follow-up is also recommended, and further management of clinical findings should be based on the results of clinical evaluation. BI-RADS Category: Right 3 - Probably Benign [facility] acute hospital DIAGNOSTIC TOMOSYNTHESIS [id number] 17:13:21Examination:BI DIAGNOSTIC TOMOSYNTHESIS [facility] ULTRASOUND BREAST LIMITED RIGHT History:Patient is 43 year old and is seen for: ?Fu. ? Comparisons: 12/11/2022 BI DIAGNOSTIC TOMOSYNTHESIS RIGHT and 11/13/2022 BI SCREENING TOMOSYNTHESIS BILATERAL Prior exam with the following findings: Right: - Thereis a ?ridge of fibroglandular breast tissue with confluent innumerable subcentimeter simple cysts seen at 1 o'clock in the posterior depth, 15 cm from the nipple. This favor to correlate with the mammogram findings. Short term follow up 3D mammogram and ultrasound in 6 months is recommended to document stability and exclude an underlying abnormality. -A 13 mm oval, parallel, hypoechoic mass at 4 o'clock, 5 cm from the nipple. ?Short term follow up ultrasound in 6 months is recommended to document stability CURRENT EXAM: ? Findings:BI DIAGNOSTIC TOMOSYNTHESIS RIGHTThe right breast is heterogeneously dense, which may obscure small masses. Again noted is a stable appearing asymmetry in the superior right breast, posterior depth. This is best seen on RSMLO image 57 of 99 and RMLO image 62 of 89. Again noted are scattered oval circumscribed benign-appearing masses throughout the right breast. BI ULTRASOUND BREAST LIMITED RIGHTTargeted right breast ultrasound was obtained. Again noted is a stable appearing 40 mm ridge of breast tissue with superimposed cysts in the breast at 1 o'clock, 15cm from the nipple. ?This is favored to correlate with the stable appearing mammographic asymmetry in the superior right breast, posterior depth. ?No associated vascularity is noted. Again noted at 4:00, 5 cm from the nipple is a 11 x 5 x 12 mm complicated cyst versus mass (this previously [id number] mm in greatest dimension); accounting for differences in sonographic technique this appears stable in appearance since the prior exam. The visualized level 1 axillary lymph nodes appear unremarkable. Impression: Right: 1. ?Again noted is a ridge of normal-appearing breast tissue with associated superimposed cysts in the right breast at 1:00, 15 cm from the nipple; favored to correlate with thestable appearing asymmetry in the superior right breast, posterior depth which is best seen on RS MLO image 57 of 99 and R MLO image 62 of 89. ?Short interval follow-up ultrasound is recommended in 6 months (at the time of annual bilateral mammogram) to document stability x 1 year. ?BI-RADS 3. 2. ?Again noted is a stable appearing 12 mm complicated cyst versus mass in the right breast at 4:00, 5 cm from the nipple. ?Short interval follow-up ultrasound is recommended in 6 months (at the time of annual bilateral mammogram) to document stability x 1 year. ?BI-RADS 3. Recommendation:Short interval follow-up ultrasound 6 months - Right ? Clinical follow-up is also recommended, and further management of clinical findings should be based on the results of clinical evaluation. BI-RADS Category: Right 3 - Probably Benign [facility]. METABOLIC PANEL ([id number])2022-02-15 02:10:44* Test Item Value Reference Range Interpretation Comme nts NA (test code = 3573147508) 141 mmol/L 135-145 K (test code = 9029321585) 4.1 mmol/L 3.5-5.0 CL (test code = 1395522511) 105 mmol/L 98-108 CO2 TOTAL (test code = 1923816044) 28 mmol/L 23-31 AGAP (test code = 4255395071) 2-16 BUN (test code = 7939139127) 18 mg/dL 7-23 GLUCOSE (test code = 3082030611) 103 mg/dL 70-110 CREATININE (test code = 6841799753) 0.76 mg/dL 0.50-1.04 TOTAL BILI (test code = 0912583678) 0.5 mg/dL 0.1-1.1 CALCIUM (test code = 7727108867) 9.7 mg/dL 8.6-10.6 T PROTEIN (test code = 5220120340) 7.6 g/dL 6.3-8.2 ALBUMIN (test code = 4123796593) 4.5 g/dL 3.5-5.0 ALK PHOS (test code = 7817171560) 84 U/L 34-122 ALTv (test code = 1742-6) 21 U/L 5-35 AST(SGOT) (test code = 1507108249) 21 U/L 13-40 eGFR (test code = 4296660990) mL/min/1.73m2 FLORENCIA (test code = FLORENCIA) Association of Glomerular Filtration Rate (GFR) and Staging of Kidney Disease* + + +- +| GFR (mL/min/1.73 m2) ?| With Kidney Damage ?| ?Without Kidney Damage+ ------+ ----+ ------+| ?>90 ?| ?Stage one ?| ? Normal ?+ -+ + -+| ?60-89 ?| ?Stage two ?| ? Decreased GFR ? + + +- +| ?30-59 ?| ?Stage three ?| ? Stage three ? + + +- +| ?15-29 ?| ?Stage four ? | ? Stage four ?+ -+ + -+| ?<15 (or dialysis) ? ?| ?Stage five ? | ? Stage five ?+ -+ + -+ *Each stage assumes the associated GFR level has been in effect for at least three months. ?Stages 1 to 5, with or without kidney disease, indicate chronic kidney disease. Notes: Determination of stages one and two (with eGFR >59mL/min/1.73 m2) requires estimation of kidney damage for at least three months as defined by structural or functional abnormalities of the kidney, manifested by either:Pathological abnormalities or Markers of kidney damage (including abnormalities in the composition of the blood or urine or abnormalities in imaging tests). [facility] WITH [id number] 01:47:57* Test Item Value Reference Range Interpretation Comme nts WBC (test code = 6690-2) See_Comment [mVisum] The system which generated this result transmitted reference range: 4.30 - 11.10 10*3/?L. The reference range was not used to interpret this result as normal/abnormal. RBC (test code = 789-8) See_Comment [mVisum] The system which generated this result transmitted reference range: 3.93 - 5.25 10*6/?L. The reference range was not used to interpret this result as normal/abnormal. HGB (test code = 718-7) 11.2 g/dL 11.6-15.0 L HCT (test code = 4544-3) 36.6 % 35.7-45.2 MCV (test code = 787-2) 82.2 fL 80.6-95.5 MCH (test code = 785-6) 25.2 pg 25.9-32.8 L MCHC (test code = 786-4) 30.6 g/dL 31.6-35.1 L RDW-SD (test code = 43173-1) 43.5 fL 39.0-49.9 RDW-CV (test code = 788-0) 14.6 % 12.0-15.5 PLT (test code = 777-3) See_Comment H [Automated messa ge] The system which generated this result transmitted reference range: 166 - 358 10*3/?L. The reference range was not used to interpret this result as normal/abnormal. MPV (test code = 56525-4) 9.4 fL 9.5-12.9 L NRBC/100 WBC (test code = 2073306216) See_Comment [Automated [employer] ssage] The system which generated this result transmitted reference range: 0.0 - 10.0 /100 WBCs. The reference range was not used to interpret this result as normal/abnormal. NRBC x10^3 (test code = 8380239007) See_Comment [Automated messa ge] The system which generated this result transmitted reference range: 10*3/?L. The reference range was not used to interpret this result as normal/abnormal. GRAN MAT (NEUT) % (test code = 770-8) 59.2 % IMM GRAN % (test code = 4014591552) 0.50 % LYMPH % (test code = 736-9) 25.4 % MONO % (test code = 5905-5) 7.6 % EOS % (test code = 713-8) 6.2 % BASO % (test code = 706-2) 1.1 % GRAN MAT x10^3(ANC) (test code = 9845089673) 5.77 10*3/uL 1.88-7.09 IMM GRAN x10^3 (test code = 4445222583) 0.05 10*3/uL 0.00-0.06 LYMPH x10^3 (test code = 731-0) 2.47 10*3/uL 1.32-3.29 MONO x10^3 (test code = 742-7) 0.74 10*3/uL 0.33-0.92 EOS x10^3 (test code = 711-2) 0.60 10*3/uL 0.03-0.39 H BASO x10^3 (test code = 704-7) 0.11 10*3/uL 0.01-0.07 H Lab Interpretation (test code = 08030-7) [facility] 19:13:31* Test Item Value Reference Range Interpretation Comme nts MAGNESIUM (test code = 2008869946) 1.8 mg/dL 1.7-2.4 Lab Interpretation (test cod e = 53622-3) Normal [facility]OL[facility] PAN[facility] (29689)2021-09-04 19:13:11* Test Item Value Reference Range Interpretation Comme nts NA (test code = 0330530633) 140 mmol/L 135-145 K (test code = 9827451395) 4.3 mmol/L 3.5-5.0 CL (test code = 0619859861) 104 mmol/L 98-108 CO2 TOTAL (test code = 5366974269) 25 mmol/L 23-31 AGAP (test code = 9785339739) 2-16 BUN (test code = 8597783353) 12 mg/dL 7-23 GLUCOSE (test code = 0712633544) 90 mg/dL 70-110 CREATININE (test code = 9178263289) 0.70 mg/dL 0.50-1.04 TOTAL BILI (test code = 0582012348) 0.8 mg/dL 0.1-1.1 CALCIUM (test code = 1854516666) 9.5 mg/dL 8.6-10.6 T PROTEIN (test code = 3005747527) 7.5 g/dL 6.3-8.2 ALBUMIN (test code = 6207650510) 4.4 g/dL 3.5-5.0 ALK PHOS (test code = 9773869262) 86 U/L 34-122 ALTv (test code = 1742-6) 21 U/L 5-35 AST(SGOT) (test code = 0398080038) 22 U/L 13-40 eGFR (test code = 6323534275) mL/min/1.73m2 FLORENCIA (test code = FLORENCIA) Association of Glomerular Filtration Rate (GFR) and Staging of Kidney Disease* + + +- +| GFR (mL/min/1.73 m2) ?| With Kidney Damage ?| ?Without Kidney Damage+ ------+ ----+ ------+| ?>90 ?| ?Stage one ?| ? Normal ?+ -+ + -+| ?60-89 ?| ?Stage two ?| ? Decreased GFR ? + + +- +| ?30-59 ?| ?Stage three ?| ? Stage three ? + + +- +| ?15-29 ?| ?Stage four ? | ? Stage four ?+ -+ + -+| ?<15 (or dialysis) ? ?| ?Stage five ? | ? Stage five ?+ -+ + -+ *Each stage assumes the associated GFR level has been in effect for at least three months. ?Stages 1 to 5, with or without kidney disease, indicate chronic kidney disease. Notes: Determination of stages one and two (with eGFR >59mL/min/1.73 m2) requires estimation of kidney damage for at least three months as defined by structural or functional abnormalities of the kidney, manifested by either:Pathological abnormalities or Markers of kidney damage (including abnormalities in the composition of the blood or urine or abnormalities in imaging tests). [facility] WITH [id number] 18:53:44* Test Item Value Reference Range Interpretation Comme nts WBC (test code = 6690-2) See_Comment [mVisum] The system which generated this result transmitted reference range: 4.30 - 11.10 10*3/?L. The reference range was not used to interpret this result as normal/abnormal. RBC (test code = 789-8) See_Comment [mVisum] The system which generated this result transmitted reference range: 3.93 - 5.25 10*6/?L. The reference range was not used to interpret this result as normal/abnormal. HGB (test code = 718-7) 11.7 g/dL 11.6-15.0 HCT (test code = 4544-3) 37.0 % 35.7-45.2 MCV (test code = 787-2) 83.1 fL 80.6-95.5 MCH (test code = 785-6) 26.3 pg 25.9-32.8 MCHC (test code = 786-4) 31.6 g/dL 31.6-35.1 RDW-SD (test code = 80175-3) 42.6 fL 39.0-49.9 RDW-CV (test code = 788-0) 14.0 % 12.0-15.5 PLT (test code = 777-3) See_Comment [Automated [employer] ge] The system which generated this result transmitted reference range: 166 - 358 10*3/?L. The reference range was not used to interpret this result as normal/abnormal. MPV (test code = 55223-0) 9.1 fL 9.5-12.9 L NRBC/100 WBC (test code = 4260884290) See_Comment [Automated [employer] ssage] The system which generated this result transmitted reference range: 0.0 - 10.0 /100 WBCs. The reference range was not used to interpret this result as normal/abnormal. NRBC x10^3 (test code = 0054246792) <0.01 See_Comment [Automated [employer] ge] The system which generated this result transmitted reference range: 10*3/?L. The reference range was not used to interpret this result as normal/abnormal. GRAN MAT (NEUT) % (test code = 770-8) 60.8 % IMM GRAN % (test code = 7287415682) 0.40 % LYMPH % (test code = 736-9) 26.5 % MONO % (test code = 5905-5) 7.3 % EOS % (test code = 713-8) 4.1 % BASO % (test code = 706-2) 0.9 % GRAN MAT x10^3(ANC) (test code = 8191183055) 4.14 10*3/uL 1.88-7.09 IMM GRAN x10^3 (test code = 7426867042) 0.03 10*3/uL 0.00-0.06 LYMPH x10^3 (test code = 731-0) 1.81 10*3/uL 1.32-3.29 MONO x10^3 (test code = 742-7) 0.50 10*3/uL 0.33-0.92 EOS x10^3 (test code = 711-2) 0.28 10*3/uL 0.03-0.39 BASO x10^3 (test code = 704-7) 0.06 10*3/uL 0.01-0.07 Lab Interpretation (test code = 61677-7) [facility]CLUD[facility]FF[facility]PLT[facility] (REFL)2020-08-25 11:00:00* Test Item Value Reference Range Interpretation Comme nts WHITE BLOOD CELL COUNT (test code = 6690-2) See_Comment [Automated message] The system which generated this result transmitted reference range: 3.8 - 10.8 Thousand/uL. The reference range was not used to interpret this result as normal/abnormal. RED BLOOD CELL COUNT (test code = 789-8) See_Comment [Automated message] The system which generated this result transmitted reference range: 3.80 - 5.10 Million/uL. The reference range was not used to interpret this result as normal/abnormal. HEMOGLOBIN (test code = 718-7) 11.7 g/dL 11.7-15.5 HEMATOCRIT (test code = 4544-3) 36.8 % 35.0-45.0 MCV (test code = 787-2) 81.1 fL 80.0-100.0 MCH (test code = 785-6) 25.8 pg 27.0-33.0 L MCHC (test code = 786-4) 31.8 g/dL 32.0-36.0 L RDW (test code = 788-0) 13.7 % 11.0-15.0 PLATELET COUNT (test code = 777-3) See_Comment [Automated message] The system which generated this result transmitted reference range: 140 - 400 Thousand/uL. The reference range was not used to interpret this result as normal/abnormal. MPV (test code = 776-5) 9.4 fL 7.5-12.5 ABSOLUTE NEUTROPHILS (test code = 751-8) See_Comment [Automated message] The system which generated this result transmitted reference range: 1500 - 7800 cells/uL. The reference range was not used to interpret this result as normal/abnormal. ABSOLUTE LYMPHOCYTES (test code = 731-0) See_Comment [Automated message] The system which generated this result transmitted reference range: 850 - 3900 cells/uL. The reference range was not used to interpret this result as normal/abnormal. ABSOLUTE MONOCYTES (test code = 742-7) See_Comment [Automated message] The system which generated this result transmitted reference range: 200 - 950 cells/uL. The reference range was not used to interpret this result as normal/abnormal. ABSOLUTE EOSINOPHILS (test code = 711-2) See_Comment [Automated message] The system which generated this result transmitted reference range: 15 - 500 cells/uL. The reference range was not used to interpret this result as normal/abnormal. ABSOLUTE BASOPHILS (test code = 704-7) See_Comment [Automated message] The system which generated this result transmitted reference range: 0 - 200 cells/uL. The reference range was not used to interpret this result as normal/abnormal. NEUTROPHILS (test code = 770-8) 69.7 % LYMPHOCYTES (test code = 736-9) 21 % MONOCYTES (test code = 5905-5) 6.1 % EOSINOPHILS (test code = 713-8) 2.2 % BASOPHILS (test code = 706-2) 1 % RAC (test code = RAC) Performing Organization Information: ? ?Site ID: RGA ? ?Name: [employer] [place] ? ?Address: [address] [place] [address] ? ?Director: KY MADISON MD Lab Interpretation (test code = 49276-5) [facility]normal [facility] [id number] 11:00:00* Test Item Value Reference Range Interpretation Comme nts GLUCOSE (test code = 2345-7) 80 mg/dL 65-99 ? Fastin g reference interval UREA NITROGEN (BUN) (test code = 3094-0) 12 mg/dL 7-25 CREATININE (test code = 2160-0) 0.66 mg/dL 0.50-1.10 eGFR NON- (test code = 11166-3) See_Comment [Automated message] The system which generated this result transmitted reference range: > OR = 60 mL/min/1.73m2. The reference range was not used to interpret this result as normal/abnormal. eGFR (test code = 87097-7) See_Comment [Automated message] The system which generated this result transmitted reference range: > OR = 60 mL/min/1.73m2. The reference range was not used to interpret this result as normal/abnormal. BUN/CREATININE RATIO (test code = 3097-3) NOT APPLICABLE See_Comment [Automated message] The system which generated this result transmitted reference range: 6 - 22 (calc). The reference range was not used to interpret this result as normal/abnormal. SODIUM (test code = 2951-2) 139 mmol/L 135-146 POTASSIUM (test code = 2823-3) 4.3 mmol/L 3.5-5.3 CHLORIDE (test code = 2075-0) 102 mmol/L 98-110 CARBON DIOXIDE (test code = 2027-9) 28 mmol/L 20-32 CALCIUM (test code = 90039-4) 9.5 mg/dL 8.6-10.2 PROTEIN, TOTAL (test code = 2885-2) 7.4 g/dL 6.1-8.1 ALBUMIN (test code = 1751-7) 4.2 g/dL 3.6-5.1 GLOBULIN (test code = 84248-9) See_Comment [Automated message] The system which generated this result transmitted reference range: 1.9 - 3.7 g/dL (calc). The reference range was not used to interpret this result as normal/abnormal. ALBUMIN/GLOBULIN RATIO (test code = 1759-0) See_Comment [Automated message] The system which generated this result transmitted reference range: 1.0 - 2.5 (calc). The reference range was not used to interpret this result as normal/abnormal. BILIRUBIN, TOTAL (test code = 1975-2) 0.8 mg/dL 0.2-1.2 ALKALINE PHOSPHATASE (test code = 6768-6) 77 U/L 31-125 AST (test code = 1920-8) 14 U/L 10-30 ALT (test code = 1742-6) 18 U/L 6-29 RAC (test code = RAC) Performing Organization Information: ? ?Site ID: RGA ? ?Name: [employer] [place] ? ?Address: [address] [place] [phone] ? ?Director: KY MADISON MD [id number] 11:00:00* Test Item Value Reference Range Interpretation Comme nts FOLATE, SERUM (test code = 2284-8) 16.7 ng/mL ? Reference Range ? Low: ? <3.4 ? Borderline: ? ?3.4-5.4 ? Normal: ?>5.4 RAC (test code = RAC) Performing Organization Information: ? ?Site ID: RGA ? ?Name: [employer] [place] ? ?Address: [address] [place] [phone] ? ?Director: KY MADISON MD [facility] [id number] 11:00:00* Test Item Value Reference Range Interpretation Comme nts HEMOGLOBIN A1c (test code = 4548-4) See_Comment For the purpose of screening for the presence ofdiabetes: <5.7% ? ? ? Consistent with the absence of diabetes5.7-6.4% ? ?Consistent with increased risk for diabetes ?(prediabetes)> or =6.5% ?Consistent with diabetes This assay result is consistent with a decreased riskof diabetes. Currently, no consensus exists regarding use ofhemoglobin A1c for diagnosis of diabetes in children. According to [place] Diabetes Association (ADA)guidelines, hemoglobin A1c <7.0% represents optimalcontrol in non- diabetic patients. Differentmetrics may apply to specific patient populations. Standards of Medical Care in Diabetes(ADA). ? [Automated message] The system which generated this result transmitted reference range: <5.7 % of total Hgb. The reference range was not used to interpret this result as normal/abnormal. RAC (test code = RAC) Performing Organization Information: ? ?Site ID: RGA ? ?Name: [employer] [place] ? ?Address: [address] [place] [phone] ? ?Director: KY MADISON MD [facility] and [id number] 11:00:00* Test Item Value Reference Range Interpretation Comme nts IRON, TOTAL (test code = 2498-4) See_Comment [Automated message] The system which generated this result transmitted reference range: 40 - 190 mcg/dL. The reference range was not used to interpret this result as normal/abnormal. IRON BINDING CAPACITY (test code = 2500-7) See_Comment [Automated message] The system which generated this result transmitted reference range: 250 - 450 mcg/dL (calc). The reference range was not used to interpret this result as normal/abnormal. % SATURATION (test code = 2502-3) See_Comment L [Automated message] The system which generated this result transmitted reference range: 16 - 45 % (calc). The reference range was not used to interpret this result as normal/abnormal. RAC (test code = RAC) Performing Organization Information: ? ?Site ID: RGA ? ?Name: [employer] [place] ? ?Address: [address] [place] [phone] ? ?Director: KY MADISON MD Lab Interpretation (test code = 11140-5) Abnormal [facility] [id number] 11:00:00* Test Item Value Reference Range Interpretation Comme nts CHOLESTEROL, TOTAL (test code = 2093-3) 200 mg/dL <200 H HDL CHOLESTEROL (test code = 2085-9) 47 mg/dL See_Comment L [Automated message] The system which generated this result transmitted reference range: > OR = 50. The reference range was not used to interpret this result as normal/abnormal. TRIGLYCERIDES (test code = 2571-8) 145 mg/dL <150 LDL-CHOLESTEROL (test code = 44845-2) mg/dL (calc) H Reference range: <100 Desirable range <100 mg/dL for primary prevention; ?<70 mg/dL for patients with CHD or diabetic patients with > or = 2 CHD risk factors. LDL-C is now calculated using the Karl-Shaina calculation, which is a validated novel method providing better accuracy than the Friedewald equation in the estimation of LDL-C. Karl SS et al. ALESSIO. 2013;310(19): 6440-9269 (http://education .Fanli website .[employer]/faq/CWX979) CHOL/HDLC RATIO (test code = 9830-1) See_Comment [Automated message] The system which generated this result transmitted reference range: <5.0 (calc). The reference range was not used to interpret this result as normal/abnormal. NON HDL CHOLESTEROL (test code = 81415-5) See_Comment H For patients wit h diabetes plus 1 major ASCVD risk factor, treating to a non-HDL-C goal of <100 mg/dL (LDL-C of <70 mg/dL) is considered a therapeutic option. [Automated message] The system which generated this result transmitted reference range: <130 mg/dL (calc). The reference range was not used to interpret this result as normal/abnormal. RAC (test code = RAC) Performing Organization Information: ? ?Site ID: RGA ? ?Name: [employer] [place] ? ?Address: [address] [place] [address] ? ?Director: KY MADISON MD Lab Interpretation (test code = 03893-7) Abnormal [facility]/REFLEX TO [id number] 11:00:00* Test Item Value Reference Range Interpretation Comme nts TSH W/REFLEX TO FT4 (test code = 3016-3) mIU/L ?Referen ce Range ?> or = 20 Years ?0.40-4.50 ? Ranges ?First trimester ? ?0.26-2.66 ?Second trimester ? 0.55-2.73 ?Third trimester ? ?0.43-2.91 RAC (test code = RAC) Performing Organization Information: ? ?Site ID: RGA ? ?Name: [employer] [place] ? ?Address: [address] [place] [address] ? ?Director: KY MADISON MD [facility] SoutheastVitamin [id number] 11:00:00* Test Item Value Reference Range Interpretation Comme nts VITAMIN B12 (test code = 2132-9) 1041 pg/mL 200-1100 RAC (test code = RAC) Performing Organization Information: ? ?Site ID: RGA ? ?Name: [employer] [place] ? ?Address: [address] [place] [address] ? ?Director: KY MADISON MD [facility] Notes Date/Time Note Provider Source 2024-01-20 10:27:24 Name and verified, pt informed her FMLA paperwork was completed and faxed to number provided. Pt may come to clinic to lease picker her copy. Pt verbalized understanding. Bernadette Kapadia RN 01/20/2024 10:28 AM Bernadette Kapadia RN [facility] 2024-01-19 10:37:52 Received [facility] paper work, will notify pt when forms are completed and ready for lease picker. Bernadette Kapadia RN 01/19/2024 10:38 AM Bernadette Kapadia RN [facility] 2024-01-19 10:28:42 Pt dropped off FMLA paperwork for completion, please fax to [phone]. Hernando Daniels [facility] 2024-01-11 13:19:47 Pt given printed and verbal discharge instructions regarding abnormal uterine bleeding, encouraged hydration. Pt verbalized understanding of instructions, pt awake alert oriented, resp reg unlabored, skin w/d, color appropriate for race, moves all ext well,pt encouraged to follow up with OBGYN. Advised to seek medical attention for new/prolonged/worsening of symptoms. No adverse reaction to meds given in ER noted upon discharge PIV d'cd, dressing to site, catheter in tact. Awake, alert oriented, resp reg unlabored, skin w/d, pt leaving amb with steady gait, in no apparent distress. [facility] 2024-01-11 13:14:48 Name and verified, pt states this morning when she took a shower she experience three blood clots the "the size of a small lemon". Pt went to ER, reports all her blood work is fine, she was just concerned about the blood clots. Pt states she wants to change her surgery date from February to January. Advised pt to keep appt for 01/[address] Alvarez. Pt verbalized understanding. Bernadette Kapadia RN 01/11/2024 1:17 PM Bernadette Kapadia RN [facility] 2024-01-11 10:19:40 Pt arrived ambulatory with complaints of vaginal bleeding. Pt had endometrial biopsy last Thursday, with spotting that cleared up. This morning patient reports heavy bleeding with clots and back/pelvic pain. Alina Joseph RN [facility] 2024-01-11 09:42:38 Pt 43 yr old female called states she is experiencing heavy bleeding and clotting States she's been bleeding off and on since . Pt says she had EMBX last Thursday. Asking if bleeding is normal. Pt requesting recommendation. Would like a call back to discuss. Carmen Mitchell [facility] 2023-12-31 08:30:00 Reviewed US results and abnormal. Pt will need an endometrial biopsy. Pt can come in earlier if available to discuss US and have procedure done. [facility] 2023-12-22 09:30:00 Images from the original note were not included. Venipuncture collection performed by clean technique on the right anticubitus. Total of 1 attempts were made. Slight pressure and a bandage/dressing were applied to the site(s). The patient experienced no complications. The following specimens were processed according to instructions and sent to [facility] laboratories per lab order on 12/22/2023: LT BLUE SST 1 RED LAV 1 PPT DK GREEN (LiHep) DK GREEN (SodH) GRANT DK BLUE (K2) DK BLUE (S) ACD Blood Culture NIPT/NTD [facility] 2023-12-04 10:30:00 Reviewed results, pt needs an wellness check for 2023. [facility] 2023-06-05 08:30:00 Recommendation: Short interval follow-up ultrasound 6 months - Right Ordered [facility]
--- NOTE | 2024-02-09 12:40 | ER ---
Nurse's Notes [facility] Name: Asiya Nye Age: 43 yrs Sex: Female : 1980 Arrival Date: 02/09/2024 Time: 10:34 Bed IW10 Private MD: Diagnosis: Chest pain, unspecified Presentation: 02/08 10:39 Chief complaint: Patient states: CP for 3 days. Now radiates into L arm. Coronavirus ll1 screen: Client denies travel out of the [place] in the last 14 days. At this time, the client does not indicate any symptoms associated with coronavirus-19. Ebola Screen: Patient denies travel to an Ebola-affected area in the 21 days before illness onset. Initial Sepsis Screen: Does the patient meet any 2 criteria? No. Patient's initial sepsis screen is negative. Does the patient have a suspected source of infection? No. Patient's initial sepsis screen is negative. Risk Assessment: Do you want to hurt yourself or someone else? Patient reports no desire to harm self or others. Onset of symptoms was February 07, 2024. 10:39 Method Of Arrival: Ambulatory ll1 10:39 Acuity: ESTEBAN 3 ll1 Triage Assessment: 10:50 General: Appears in no apparent distress. Behavior is calm, cooperative, appropriate ll1 for age. Pain: Complains of pain in chest Quality of pain is described as pressure. Cardiovascular: Reports chest pain. Historical: - Allergies: 10:55 No Known Allergies; ll1 - PMHx: 10:55 None; ll1 - PSHx: 10:55 Cholecystectomy; tubal ligation; ll1 - Immunization history:: Adult Immunizations up to date. - Social history:: Smoking status: Patient reports the use of cigarette tobacco products, smokes .3 packs per day. Assessment: 12:33 Reassessment: Pt called to exam room. No answer. unable to locate patient. Attempted to ss call the phone number on file, but no answer. 12:34 Reassessment: spoke with [employer] tech who states that she attempted to call ss patient at 1130, and also unable to locate the patient. 12:37 Reassessment: Dr. Hidalgo notified. Vital Signs: 10:39 BP 142 / 85; Pulse 78; Resp 17; Temp 97.4; Pulse Ox 99% ; Weight 63.5 kg; Height 5 ft. ll1 2 in. ; Pain 3/10; 10:39 Body Mass Index 25.61 (63.50 kg, 157.48 cm) ll1 10:39 Pain Scale: Adult ll1 ED Course: 10:37 Patient arrived in ED. mr 10:37 Phill Hidalgo MD is Attending Physician. ec2 10:55 Triage completed. ll1 11:28 Radiology exam delayed due to pt called for in ER sheri and not able to be found. rs4 Administered Medications: 13:04 Not Given (pt left prior to administration): mg IVP once ss Outcome: 12:40 Discharge ordered by . ec2 13:04 Discharged to home ambulatory, 13:04 Discharge instructions given to Pt left prior to receiving discharge instructions 13:04 Patient left the ED. ss Signatures: Daphne Sharif, Reg Reg GuzmánAngella RN RN Callie Mcbride RN RN pradeep1 Asiya Rod rs4 Phill Hidalgo MD MD ec2
--- NOTE | 2024-02-09 12:40 | EDPHYS ---
Physician Documentation [facility] Name: Asiya Nye Age: 43 yrs Sex: Female : 1980 Arrival Date: 02/09/2024 Time: 10:34 Bed [id number] Private MD: ED Physician Phill Hidalgo HPI: 02/08 10:57 This 43 yrs old Female presents to ER via Ambulatory with complaints of Chest ec2 Tightness. 10:57 Patient arrives today for evaluation of left-sided chest tightness ongoing for ec2 approximately 5 days. No specific alleviating or exacerbating factors. No history of CAD. Reports history of obesity as well as hypertension heart rate is lost significant weight and subsequently is no longer on medications for hypertension. No difficulty breathing, no cough and cold symptoms. No vomiting or diarrhea.. Historical: - Allergies: 10:55 No Known Allergies; ll1 - PMHx: 10:55 None; ll1 - PSHx: 10:55 Cholecystectomy; tubal ligation; ll1 - Immunization history:: Adult Immunizations up to date. - Social history:: Smoking status: Patient reports the use of cigarette tobacco products, smokes .3 packs per day. ROS: 10:57 Constitutional: as per hpi ec2 Exam: 10:57 Constitutional: GEN: NAD Head: atraumatic Eyes: EOMI Ears: External ears are ec2 normal. CV: regular rate LUNGS: no respiratory distress ABD: non-distended SKIN: no evidence of rashes MSK: no evidence of trauma Vital Signs: 10:39 BP 142 / 85; Pulse 78; Resp 17; Temp 97.4; Pulse Ox 99% ; Weight 63.5 kg; Height 5 ft. ll1 2 in. ; Pain 3/10; 10:39 Body Mass Index 25.61 (63.50 kg, 157.48 cm) ll1 10:39 Pain Scale: Adult ll1 MDM: 10:50 Medical Screening Exam initiated ec2 10:57 Data reviewed: vital signs, nurses notes. ED course: Patient arrives today for ec2 left-sided chest pain that is nonexertional with a reassuring examination on physical exam. Will obtain lab work as well as EKG and chest x-ray. Differential diagnosis include process such as MSK pathology, ACS, lower suspicion for PE.. 10:58 ED course: EKG independently reviewed and interpreted by me, shows normal sinus rhythm, ec2 rate of 74, no acute ST segment elevations, intervals are nonactionable.. 12:39 ED course: Patient had left prior to completion of services. Attempted to call her ec2 however she was unavailable. Ultimately I have a suspicion for ACS given the reassuring EKG and patient's story.. 02/08 10:54 Order name: EKG - Nurse/Tech; Complete Time: 10:54 ll1 02/08 10:57 Order name: Cardiac monitoring ec2 02/08 10:57 Order name: IV Saline Lock ec2 02/08 10:57 Order name: Labs collected and sent ec2 02/08 10:57 Order name: O2 Per Protocol ec2 02/08 10:57 Order name: O2 Sat Monitoring ec2 Administered Medications: 13:04 Not Given (pt left prior to administration): [id number] mg IVP once ss Disposition Summary: 02/09/24 12:40 Discharge Ordered Notes: Location: Home ec2 Condition: Stable ec2 Diagnosis - Chest pain, unspecified ec2 Followup: ec2 - With: Private Physician - When: - Reason: Re-evaluation by your physician Discharge Instructions: - Discharge Summary Sheet ec2 - Nonspecific Chest Pain, Adult ec2 Forms: - Medication Reconciliation Form ec2 - Antibiotic Education ec2 - Prescription Opioid Use ec2 - Patient Portal Instructions ec2 - Leadership Thank You Letter ec2 Signatures: Dispatcher [employer] Callie Rico RN RN ll1 Phill Hidalgo MD MD ec2 Angella Guzmán RN ss Corrections: (The following items were deleted from the chart) 12:29 10:58 Chest Single View+[email or web address] ordered. MARCOS RODRÍGUEZ
[2024-02-09 13:13] VITALS: BP 142/85; TEMP 97.4; O2SAT 99
== END 2024-02-09 13:04 | disposition home or self-care (01) ==
LOC: ER 10:34
DX: R07.9 Chest pain, unspecified (principal); F17.210 Nicotine dependence, cigarettes, uncomplicated
CPT/HCPCS: 99282

== ENCOUNTER 2025-01-13 06:22 | Observation (INO) | payer BC ==
--- OUTSIDE RECORDS SUMMARY | 2025-01-13 06:29 | XMS REPORT | Continuity of Care Document ---
Author Name Unknown Address [address] [place] [address] [facility] Address [address] [place] [address] Care Team Providers Care Mailroom Personnel Name Role Phone Riccardo ARREDONDO, Jh Primary Care Physician ACOSTA CORTES Attending Clinician Unavailable LETI ALVAREZ Attending Clinician LETI Joshua Attending Clinician Leti Joshua MD Attending Clinician [phone] ZULY SORENSEN Attending Clinician Unavail able Doctor Unassigned, [place] Attending Clinician U navailable Pob, [facility] Attending Clinician UnavailRUI Putnam Attending Clinician Unavailable RUI CHAPA Attending Clinician Unavailable Rui Chapa PA-C Attending Clinician [phone], [facility] Attending Clinician Unavailable FLORY ROMAN Attending Clinician Unavailable FLORY ROMAN Attending Clinician Unavailable Doctor Unassigned, [place] Attending Clinician U navailable KRANTHI MERINO Attending Clinician Unavailable Stephon Hyde Attending Clinician [phone] Kranthi Merino MD Attending Clinician [phone] REUBEN CIFUENTES Attending Clinician Unavailable Reuben Cifuentes DO Attending Clinician [phone] Michelle Babcock DO Attending Clinician [phone] SHASTA DOUGLAS Attending Clinician Unavailable Shasta Douglas MD Attending Clinician [phone] LETI ALVAREZ Admitting Clinician Leti Joshua MD Admitting Clinician + [phone] FLORY ROMAN Admitting Clinician Unavailable Stephon ZAZUETA Admitting Clinician Unavailable Payers Payer Name Policy Type Policy Number Effective Date Expirati on Date Source [employer] PPO [id number] 2020 00:00:00 [employer] [place] [employer] [id number] 2018 00:00:00 Problems Condition Name Condition Details Condition Category Status Onset Date Resolution Date Last Treatment Date Treating Clinician Comments Source Laceration of flexor tendon of forearm, left, initial encounter Laceration of flexor tendon of forearm, left, initial encounter Disease Active 2013-03 00:00: 00 [facility] Numbness of index finger, left Numbness of index finger, left Disease Active 2013-03 00:00: 00 [facility] Laceration of flexor tendon of forearm, left, initial encounter Laceration of flexor tendon of forearm, left, initial encounter Disease Active 2013-03 00:00: 00 [facility] Anxiety Anxiety Disease Active [facility] Depression Depression Disease Active [facility] Heavy menses Heavy menses Disease Active [facility] Nephrolith iasis Nephrolith iasis Disease Active [facility] Abnormal uterine bleeding (AUB) Abnormal uterine bleeding (AUB) Disease Resolve d 2023-03 0-07 00:00: 00 2024-12-23 00:00:00 2024-12-23 15:12:53 [facility] Thickened endometriu m Thickened endometriu m Disease Resolve d 2023-03 0-07 00:00: 00 2024-12-23 00:00:00 2024-12-23 15:12:55 [facility] BMI 50.0-59.9, adult BMI 50.0-59.9, adult Disease Resolve d 2019-03 0-14 00:00: 00 2024-12-23 00:00:00 2024-12-23 15:12:59 [facility] Laceration Laceration Disease Resolve d 2013-03 2-13 00:00: 00 2024-12-23 00:00:00 2024-12-23 15:13:02 [facility] Allergies, Adverse Reactions, Alerts Allergy Name Allergy Type Status Severity Reaction(s) Onset Date Inactive Date Treating Clinician Comments Source NO KNOWN ALLERGIE S Drug Class Active [facility] Family History Family Member Diagnosis Comments Start Date Stop Date Sourc e Natural father Un[facility] Natural mother Diabetes [facility] Hy[facility] mother Kidney Cancer [facility] Social History Social Habit Start Date Stop Date Quantity Comments Source Gender identity [facility] Sexual orientation [facility] ASSERTION Not [facility] History of Social function 2024-12-23 00:00:00 2024-12-23 00:00:00 [facility] Alcoholic beverage intake 2024-12-23 00:00:00 2024-12-23 00:00:00 Current drinker of alcohol (finding) [facility] Tobacco use and exposure 2024-01-04 00:00:00 2024-01-04 00:00:00 Smokeless tobacco non-user [facility] Alcohol intake 2023-01-05 00:00:00 2023-01-05 00:00:00 Current drinker of alcohol (finding) [facility] Tobacco Comment 2022-11-04 00:00:00 2022-11-04 00:00:00 5 ciggs a day [facility] Exposure to SARS-CoV-2 (event) 2022-02-04 00:00:00 2022-02-14 17:37:00 Not sure [facility] History SDOH Alcohol Frequency 2020-01-11 00:00:00 2020-01-11 00:00:00 2 [facility] History SDOH Alcohol Std Drinks 2020-01-11 00:00:00 2020-01-11 00:00:00 99 [facility] History SDOH Alcohol Binge 2020-01-11 00:00:00 2020-01-11 00:00:00 99 [facility] Alcohol Comment 2020-01-11 00:00:00 2020-01-11 00:00:00 Social Drinker [facility] History of tobacco use 2015-07-27 00:00:00 Cigarette Smoker [facility] Sex assigned at 1980 00:00:00 1980 00:00:00 [facility] Smoking Status Start Date Stop Date Source Smokes tobacco daily 2024-01-04 00:00:00 [facility] Ex-smoker 2020-01-11 00:00:00 2020-01-11 [facility]00[facility] Medications Ordered Medication Name Filled Medication Name Start Date Stop Date Current Medication? Ordering Clinician Indication Dosage Frequency Signature (SIG) Comments Components Source diclofenac 50 mg EC tablet 12-15 00:00: 00 Yes 50mg Take 1 tablet by mouth in the morning and 1 tablet at noon and 1 tablet in the evening. [facility] MOUNJARO 7.5 mg/0.5 mL subcutaneou s injection pen 12-01 00:00: 00 Yes INJECT 7.5 MG SUBCUTANEO USLY ONCE A WEEK [facility] metroNIDAZO LE 500 mg tablet 04-04 00:00: 00 12-23 00:00 :00 No [id number] 500mg Take 1 tablet by mouth every 12 (twelve) hours. [facility] HYDROcodone -acetaminop hen (NORCO 5) tablet 1 tablet 2023-03 19:45: 00 02-21 19:59 :00 No 1{tbl} 1 tablet, Oral, ONCE, 1 dose, On Thu02/22/24 at 1345, Routine, PACU [facility] HYDROcodone -acetaminop hen (NORCO 5) tablet 1 tablet 2023-03 19:38: 26 02-21 23:31 :17 No 1{tbl} 1 tablet, Oral, PRN, 1 dose, Starting on Thu02/22/24 at 1338, Until Thu02/22/24 at 1731, Routine, Pain (scale 4-6), DSU Recovery [facility] ibuprofen (IBU) tablet 800 mg 2023-03 19:38: 26 02-21 23:31 :17 No 800mg 800 mg, Oral, PRN, 1 dose, Starting on Thu02/22/24 at 1338, Until Thu02/22/24 at 1731, Routine, Pain (scale 1-3), DSU Recovery [facility] HYDROmorphO ne (DILAUDID) injection 0.2 mg 2023-03 19:31: 47 02-21 23:31 :17 No .2mg 0.2 mg, Slow IV Push, Q5MIN PRN, 10 doses, Starting on Thu02/22/24 at 1331, Until Thu02/22/24 at 1731, Routine, Pain (scale 7-10), PACU, Is this medication approved by a Faculty level provider? 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 member approving Restricted medication : PACU RECOVERY [facility] FENTanyl (PF) (SUBLIMAZE) injection 25 mcg 2023-03 19:31: 47 02-21 23:31 :17 No 25ug 25 mcg, Slow IV Push, Q5MIN PRN, 4 doses, Starting on Thu02/22/24 at 1331, Until Thu02/22/24 at 1731, Routine, Pain Scale 4-6, PACU [facility] ondansetron (ZOFRAN (PF)) injection 4 mg 2023-03 19:31: 47 02-21 20:31 :00 No 4mg 4 mg, Slow IV Push, PRN, 1 dose, Starting on Thu02/22/24 at 1331, Until Thu02/22/24 at 1431, Administer over 2-5 Minutes, 2 mL, PACU [facility] vasopressin (VASOSTRICT ) 20 Units/100 mL RTU vial infusion 2023-03 17:47: 00 02-21 19:39 :53 No CONTINUOUS PRN, Starting on Thu02/22/24 at 1147, Until Thu02/22/24 at 1339, Routine, Intra-op [facility] sodium chloride 0.9 % irrigation solution 2023-03 17:47: 00 02-21 19:39 :53 No PRN, Starting on Thu02/22/24 at 1147, Until Thu02/22/24 at 1339, Intra-op [facility] phenazopyri dine (PYRIDIUM) tablet 200 mg 2023-03 15:00: 00 02-21 15:01 :00 No 200mg 200 mg, Oral, ONCE, 1 dose, On Thu02/22/24 at 0900, Routine, DSU Pre-op [facility] acetaminoph en (TYLENOL EXTRA STRENGTH) 500 mg tablet 2023-03 00:00: 00 04-04 00:00 :00 No [id number] 500mg Take 1 tablet by mouth every 6 (six) hours. [facility] ibuprofen 600 mg tablet 2023-03 00:00: 00 04-04 00:00 :00 No [id number] 600mg Take 1 tablet by mouth every 6 (six) hours. [facility] ondansetron 4 mg tablet 2023-03 00:00: 00 04-04 00:00 :00 No [id number] 4mg Take 1 tablet by mouth every 8 (eight) hours as needed for Nausea and Vomiting (N/V). [facility] docusate 100 mg capsule 2023-03 00:00: 00 04-04 00:00 :00 No [id number] 100mg Take 1 capsule by mouth in the morning. [facility] oxyCODONE 5 mg immediate release tablet 2023-03 00:00: 00 03-01 05:59 :00 No [id number] 5mg Take 1 tablet by mouth every 6 (six) hours as needed for Pain (scale 7-10) for up to 7 days. Indication s: acute pain [facility] ketorolac (TORADOL) injection 30 mg 2022-03 08:15: 00 03-11 07:39 :00 No 30mg 30 mg, Intramuscu lar, ONCE, 1 dose, On Thu03/11/23 at 0215, BRIDGETTE [facility] oseltamivir (TAMIFLU) capsule 75 mg 2022-03 08:15: 00 03-11 07:36 :00 No 75mg 75 mg, Oral, ONCE NOW, 1 dose, On Thu03/11/23 at 0215, Routine [facility] acetaminoph en (TYLENOL) tablet 650 mg 2022-03 08:15: 00 03-11 07:36 :00 No 650mg 650 mg, Oral, ONCE, 1 dose, On Thu03/11/23 at 0215, BRIDGETTE [facility] dexamethaso ne sod phos PF injection 10 mg 2022-03 07:45: 00 03-11 07:35 :00 No 10mg 10 mg, Intramuscu lar, ONCE, 1 dose, On Thu03/11/23 at 0145, 1 mL [facility] oseltamivir (TAMIFLU) 75 mg capsule 2022-03 00:00: 00 03-17 05:59 :00 No [id number] 75mg Take 1 capsule by mouth in the morning and 1 capsule in the evening. Do all this for 5 days. [facility] phenyleph-D M-acetamin- guaifen (MUCINEX FAST-MAX COLD-FLU) 10-20-650 mg/20 mL Liqd 2022-03 00:00: 00 03-17 05:59 :00 No [id number] 20mL Take 20 mL by mouth 4 (four) times daily for 5 days. [facility] benzocaine- menthoL (CEPACOL SORE THROAT, YVON-MEN,) lozenge 2022-03 00:00: 00 03-17 05:59 :00 No [id number] 1{lozen ge} Take 1 Lozenge by mouth every 4 (four) hours as needed for Sore throat for up to 5 days. [facility] RYBELSUS 14 mg tablet 2022-03 00:00: 00 Yes 14mg Take 1 tablet by mouth in the morning. [facility] Lactobacill us acidophilus (PROBIOTIC ACIDOPHILUS ORAL) 8-08 16:39: 14 12-23 00:00 :00 No Take by mouth daily. [facility] METRONIDAZO LE 500 MG 10-03 00:00: 00 Yes Pete Liao KETOROLAC 10 MG - 00:00: 00 Yes Pete Liao CIPROFLOXAC IN HCL 500 MG - 00:00: 00 Yes Pete Liao losartan 25 mg tablet 09-24 00:00: 00 01-03 00:00 :00 No [facility] LOSARTAN POTASSIUM 25 MG 5-24 00:00: 00 Yes Pete Liao SULFAMETHOX AZOLE-TMP DS 2-21 00:00: 00 Yes [id number] Pete Liao amoxicillin -clavulanat e (AUGMENTIN) 875-125 mg per tablet 1 tablet 2021-03 03:45: 00 02-15 02:34 :00 No 1{tbl} 1 tablet, Oral, ONCE, 1 dose, On Thu02/14/22 at 2145, Routine
Reason for Anti-Infec tive: Documented Infection< br>Documen gary Infection Site: HEENT
D uration of Therapy: 10 days [facility] iopamidol (ISOVUE 370-500 mL) injection 79 mL 2021-03 01:45: 00 02-15 02:00 :00 No [id number] 79mL 79 mL, Intravenou s, ONCE, 1 dose, On Thu02/14/22 at 2000, Routine [facility] AMOX-CLAV 875-125 MG 2021-03 00:00: 00 Yes [id number] Pete Liao amoxicillin -clavulanat e 875-125 mg per tablet 2021-03 00:00: 00 01-03 00:00 :00 No [id number] 1{tbl} Take 1 tablet by mouth every 12 (twelve) hours. [facility] CETIRIZINE HCL 10 MG TABLET 12-02 00:00: 00 Yes 10 Pete Liao METHYLPREDN ISOLONE 4 MG DOSEPK 12-02 00:00: 00 Yes 4 Pete Liao &lt 6-29 00:00: 00 Yes Pete Liao &lt 09-23 00:00: 00 Yes Pete Liao methylPREDN ISolone (MEDROL, FATNA,) 4 mg tablets 09-04 00:00: 00 01-03 00:00 :00 No [id number] Take by mouth SEE-INSTRU CTIONS. follow package directions [facility] naproxen sodium (ANAPROX DS) 550 mg tablet 09-04 00:00: 00 01-03 00:00 :00 No [id number] 550mg Take 1 tablet by mouth 2 (two) times daily with meals. [facility] L-Tyrosine 500 MG capsule 08-24 16:00: 09 Yes Take by mouth. [facility] Methylcobal gallegos (X32-RFXRSV PO) 08-24 16:00: 09 Yes Take by mouth. [facility] L-Tyrosine 500 MG capsule 08-24 11:00: 09 Yes Take by mouth. [facility] Methylcobal gallegos (K42-SRBWDD PO) 08-24 11:00: 09 Yes Take by mouth. [facility] traZODONE (DESYREL) 50 mg tablet 2019-03 21:01: 09 Yes 50mg Take 50 mg by mouth at bedtime. [facility] MAGNESIUM ORAL 2019-03 21:01: 09 Yes Take by mouth. [facility] MAGNESIUM ORAL 2019-03 16:01: 09 Yes Take by mouth. [facility] traZODONE (DESYREL) 50 mg tablet 2019-03 16:01: 09 01-03 00:00 :00 No 50mg Take 50 mg by mouth at bedtime. [facility] ibuprofen 600 mg tablet 2018-03 00:00: 00 01-03 00:00 :00 No [id number] 600mg Take 1 tablet by mouth every 6 (six) hours as needed for Pain (scale 4-6). [facility] cyclobenzap rine 10 mg tablet 2018-03 00:00: 00 01-03 00:00 :00 No [id number] 10mg Take 1 tablet by mouth 3 (three) times daily. [facility] ondansetron 4 mg disintegrat ing tablet 2018-03 00:00: 00 01-03 00:00 :00 No [id number] 4mg Take 1 tablet by mouth every 8 (eight) hours as needed for Nausea and Vomiting (N/V). [facility] traZODONE (DESYREL) 50 mg tablet 04-11 16:32: 02 Yes 50mg Take 50 mg by mouth at bedtime. [facility] docusate (COLACE) 100 mg capsule 2013-03 00:00: 00 01-03 00:00 :00 No 100mg Take 1 Cap by mouth daily. [facility] acetaminoph en-codeine (TYLENOL #3) 300-30 mg tablet 2013-03 00:00: 00 01-03 00:00 :00 No 1{tbl} Take 1 Tab by mouth every 4 (four) hours as needed for Pain (scale 4-6). [facility] FERROUS SULFATE 300 (60) MG ORAL TAB 05-07 00:00: 00 01-03 00:00 :00 No Take one tablet by mouth twice daily [facility] Vital Signs Vital Name Observation Time Observation Value Comments S bonny Systolic blood pressure 2024-12-23 20:00:00 143 mm[Hg] [facility] Diastolic blood pressure 2024-12-23 20:00:00 71 mm[Hg] [facility] Heart rate 2024-12-23 19:59:00 81 /min [facility] Body temperature 2024-12-23 19:59:00 36.67 [facility] Respiratory rate 2024-12-23 19:59:00 18 /min [facility] Body height 2024-12-23 19:59:00 157.5 cm [facility] Body weight 2024-12-23 19:59:00 106.142 kg [facility] BMI 2024-12-23 19:59:00 42.80 kg/m2 [facility] Systolic blood pressure 2024-04-04 14:16:00 135 mm[Hg] [facility] Diastolic blood pressure 2024-04-04 14:16:00 83 mm[Hg] [facility] Heart rate 2024-04-04 14:16:00 95 /min [facility] Body temperature 2024-04-04 14:16:00 37.11 [facility] Respiratory rate 2024-04-04 14:16:00 18 /min [facility] Body height 2024-04-04 14:16:00 157.5 cm [facility] Body weight 2024-04-04 14:16:00 110.587 kg [facility] BMI 2024-04-04 14:16:00 44.59 kg/m2 [facility] Systolic blood pressure 2024-03-07 21:43:00 133 mm[Hg] [facility] Diastolic blood pressure 2024-03-07 21:43:00 79 mm[Hg] [facility] Heart rate 2024-03-07 21:43:00 89 /min [facility] Respiratory rate 2024-03-07 21:43:00 18 /min [facility] Body height 2024-03-07 21:43:00 157.5 cm [facility] Body weight 2024-03-07 21:43:00 109.77 kg [facility] BMI 2024-03-07 21:43:00 44.26 kg/m2 [facility] Systolic blood pressure 2024-02-22 20:38:00 129 mm[Hg] [facility] Diastolic blood pressure 2024-02-22 20:38:00 86 mm[Hg] [facility] Heart rate 2024-02-22 20:38:00 67 /min [facility] Body temperature 2024-02-22 20:38:00 36.33 [facility] Respiratory rate 2024-02-22 20:38:00 16 /min [facility] Oxygen saturation in Arterial blood by Pulse oximetry 2024-02-22 20:38:00 93 /min [facility] Body height 2024-02-22 15:02:00 157.5 cm [facility] Body weight 2024-02-22 15:02:00 108.41 kg [facility] BMI 2024-02-22 15:02:00 43.71 kg/m2 [facility] Systolic blood pressure 2024-02-22 20:28:00 124 mm[Hg] [facility] Diastolic blood pressure 2024-02-22 20:28:00 83 mm[Hg] [facility] Heart rate 2024-02-22 20:28:00 85 /min [facility] Respiratory rate 2024-02-22 20:28:00 26 /min [facility] Oxygen saturation in Arterial blood by Pulse oximetry 2024-02-22 20:28:00 95 /min [facility] Body temperature 2024-02-22 19:27:00 36.61 [facility] Body height 2024-02-22 15:02:00 157.5 cm [facility] Body weight 2024-02-22 15:02:00 108.41 kg [facility] BMI 2024-02-22 15:02:00 43.71 kg/m2 [facility] Systolic blood pressure 2024-02-19 21:11:00 141 mm[Hg] [facility] Diastolic blood pressure 2024-02-19 21:11:00 89 mm[Hg] [facility] Heart rate 2024-02-19 21:10:00 63 /min [facility] Body temperature 2024-02-19 21:10:00 36.67 [facility] Respiratory rate 2024-02-19 21:10:00 18 /min [facility] Body height 2024-02-19 21:10:00 157.5 [facility] 2024-02-19 21:10:00 110.768 kg [facility] BMI 2024-02-19 21:10:00 44.66 kg/m2 [facility] Systolic blood pressure 2024-01-19 13:12:00 127 mm[Hg] [facility] Diastolic blood pressure 2024-01-19 13:12:00 79 mm[Hg] [facility] Heart rate 2024-01-19 13:12:00 78 /min [facility] 2024-01-19 13:12:00 18 /min [facility] Body height 2024-01-19 13:12:00 157.5 cm [facility] Body weight 2024-01-19 13:12:00 112.175 kg [facility] BMI 2024-01-19 13:12:00 45.23 kg/m2 [facility] Systolic blood pressure 2024-01-11 18:00:00 160 mm[Hg] [facility] Diastolic blood pressure 2024-01-11 18:00:00 99 mm[Hg] [facility] Heart rate 2024-01-11 18:00:00 80 /min [facility] Respiratory rate 2024-01-11 18:00:00 14 /min [facility] Oxygen saturation in Arterial blood by Pulse oximetry 2024-01-11 18:00:00 100 /min [facility] Body temperature 2024-01-11 15:21:00 36.89 [facility] Body height 2024-01-11 15:21:00 157.5 cm [facility] Body weight 2024-01-11 15:21:00 111.131 kg [facility] BMI 2024-01-11 15:21:00 44.81 kg/m2 [facility] Systolic blood pressure 2024-01-08 14:25:00 164 mm[Hg] [facility] Diastolic blood pressure 2024-01-08 14:25:00 98 mm[Hg] [place] [facility] Heart rate 2024-01-08 14:24:00 76 /min [facility] Body temperature 2024-01-08 14:24:00 36.33 [facility] Respiratory rate 2024-01-08 14:24:00 18 /min [facility] Body height 2024-01-08 14:24:00 152.4 cm [facility] Body weight 2024-01-08 14:24:00 112.855 kg [facility] BMI 2024-01-08 14:24:00 48.59 kg/m2 [facility] Systolic blood pressure 2024-01-04 18:35:00 131 mm[Hg] [place] [facility] Diastolic blood pressure 2024-01-04 18:35:00 87 mm[Hg] [facility] Heart rate 2024-01-04 18:35:00 87 /min [facility] Body temperature 2024-01-04 18:35:00 36.72 [facility] Respiratory rate 2024-01-04 18:35:00 18 /min [facility] Body height 2024-01-04 18:35:00 152.4 cm [facility] Body weight 2024-01-04 18:35:00 112.946 kg [facility] BMI 2024-01-04 18:35:00 48.63 kg/m2 [facility] Systolic blood pressure 2023-12-22 13:49:00 131 mm[Hg] [place] [facility] Diastolic blood pressure 2023-12-22 13:49:00 81 mm[Hg] [facility] Heart rate 2023-12-22 13:49:00 75 /min [facility] Body temperature 2023-12-22 13:49:00 36.67 [facility] Respiratory rate 2023-12-22 13:49:00 18 /min [facility] Body height 2023-12-22 13:49:00 152.4 cm [facility] Body weight 2023-12-22 13:49:00 113.581 kg [facility] BMI 2023-12-22 13:49:00 48.90 kg/m2 [facility] Oxygen saturation in Arterial blood by Pulse oximetry 2023-12-22 13:49:00 100 /min [facility] Systolic blood pressure 2023-03-11 07:57:00 129 mm[Hg] [facility] Diastolic blood pressure 2023-03-11 07:57:00 81 mm[Hg] [facility] Heart rate 2023-03-11 07:57:00 103 /min [facility] Body temperature 2023-03-11 07:57:00 38.22 [facility] Respiratory rate 2023-03-11 07:57:00 18 /min [facility] Oxygen saturation in Arterial blood by Pulse oximetry 2023-03-11 07:57:00 95 /min [facility] Body height 2023-03-11 07:19:00 152.4 cm [facility] Body weight 2023-03-11 07:19:00 128.368 kg [facility] BMI 2023-03-11 07:19:00 55.27 kg/m2 [facility] Systolic blood pressure 2023-01-05 18:51:00 130 mm[Hg] [facility] Diastolic blood pressure 2023-01-05 18:51:00 75 mm[Hg] [facility] Heart rate 2023-01-05 18:51:00 85 /min [facility] Body temperature 2023-01-05 18:51:00 37.06 [facility] Respiratory rate 2023-01-05 18:51:00 17 /min [facility] Body height 2023-01-05 18:51:00 157.5 cm [facility] Body weight 2023-01-05 18:51:00 135.172 kg [facility] BMI 2023-01-05 18:51:00 54.50 kg/m2 [facility] Systolic blood pressure 2022-11-04 21:37:00 135 mm[Hg] [facility] Diastolic blood pressure 2022-11-04 21:37:00 80 mm[Hg] [facility] Heart rate 2022-11-04 21:37:00 87 /min [facility] Respiratory rate 2022-11-04 21:37:00 18 /min [facility] Body height 2022-11-04 21:37:00 157.5 cm [facility] Body weight 2022-11-04 21:37:00 136.986 kg [facility] BMI 2022-11-04 21:37:00 55.24 kg/m2 [facility] Systolic blood pressure 2022-02-14 23:38:00 170 mm[Hg] [facility] Diastolic blood pressure 2022-02-14 23:38:00 94 mm[Hg] [facility] Heart rate 2022-02-14 23:38:00 87 /min [facility] Body temperature 2022-02-14 23:38:00 37.17 [facility] Respiratory rate 2022-02-14 23:38:00 20 /min [facility] Body weight 2022-02-14 23:38:00 129.275 kg [facility] BMI 2022-02-14 23:38:00 52.13 kg/m2 [facility] Oxygen saturation in Arterial blood by Pulse oximetry 2022-02-14 23:38:00 99 /min [facility] Body temperature 2021-09-04 17:46:00 37.17 [facility] Respiratory rate 2021-09-04 17:46:00 18 /min [facility] Body height 2021-09-04 17:46:00 157.5 cm [facility] Body weight 2021-09-04 17:46:00 139.254 kg [facility] BMI 2021-09-04 17:46:00 56.15 kg/m2 [facility] Oxygen saturation in Arterial blood by Pulse oximetry 2021-09-04 17:46:00 96 /min [facility] Systolic blood pressure 2021-09-04 17:46:00 144 mm[Hg] [facility] Diastolic blood pressure 2021-09-04 17:46:00 104 mm[Hg] [facility] Heart rate 2021-09-04 17:46:00 94 /min [facility] Body height 2020-12-06 14:45:00 [facility] Body weight 2020-12-06 14:45:00 139[facility]3 [facility] BMI 2020-12-06 14:45:00 55.27 kg[facility]m2 [facility] Systolic blood pressure 2020-08-24 15:59:00 134 mm[Hg] [facility] Diastolic blood pressure 2020-08-24 15:59:00 84 mm[Hg] [facility] Heart rate 2020-08-24 15:59:00 94 /min [facility] Body temperature 2020-08-24 15:59:00 37.56 [facility] Body height 2020-08-24 15:59:00 158.8 cm [facility] Body weight 2020-08-24 15:59:00 136.578 [facility] BMI 2020-08-24 15:59:00 54.19 kg[facility]m2 [facility] Systolic blood pressure 2020-01-11 21:21:00 132 mm[Hg] [facility] Diastolic blood pressure 2020-01-11 21:21:00 90 mm[Hg] [facility] Heart rate 2020-01-11 20:55:00 95 /min [facility] Body temperature 2020-01-11 20:55:00 36.89 [facility] Respiratory rate 2020-01-11 20:55:00 20 /min [facility] Body height 2020-01-11 20:55:00 157.5 cm [facility] Body weight 2020-01-11 20:55:00 133.811 kg [facility] BMI 2020-01-11 20:55:00 53.96 kg/m2 [facility] Systolic blood pressure 2020-01-11 21:21:00 132 mm[Hg] [facility] Diastolic blood pressure 2020-01-11 21:21:00 90 mm[Hg] Dubois o [facility] Heart rate 2020-01-11 20:55:00 95 /min [facility] Body temperature 2020-01-11 20:55:00 36.89 [facility] Respiratory rate 2020-01-11 20:55:00 20 /min [facility] Body height 2020-01-11 20:55:00 157.5 cm [facility] Body weight 2020-01-11 20:55:00 133.811 kg [facility] BMI 2020-01-11 20:55:00 53.96 kg/m2 [facility] BP Systolic 2024-10-28 15:15:00 133 mm[Hg] Step hen F Keshawn BP Diastolic 2024-10-28 15:15:00 83 mm[Hg] Hero phen F Keshawn Weight Measured 2024-10-28 15:15:00 248.40 pounds Pete F Keshawn Height Measured 2024-10-28 15:15:00 62.40 inches Pete F K[facility]hawn Body Temperature 2024-10-28 15:15:00 98.30 degrees Pete F Keshawn Heart Rate 2024-10-28 15:15:00 74.00 /min Ann en F Keshawn Respiratory Rate 2024-10-28 15:15:00 Pete F Keshawn Heart Rate 2024-10-24 14:53:00 71.00 /min Ann en F Keshawn Respiratory Rate 2024-10-24 14:53:00 16.00 /min Pete F Keshawn BP Systolic 2024-10-24 14:53:00 132 mm[Hg] Step hen F Keshawn BP Diastolic 2024-10-24 14:53:00 88 mm[Hg] Hero phen F Keshawn Weight Measured 2024-10-24 14:53:00 248.40 pounds Pete F Keshawn Height Measured 2024-10-24 14:53:00 62.40 inches Pete F Keshawn Body Temperature 2024-10-24 14:53:00 98.30 degrees Pete F [place] Systolic blood pressure 2024-04-04 14:16:00 135 mm[Hg] Dubois o [facility] Diastolic blood pressure 2024-04-04 14:16:00 83 mm[Hg] Dubois o [facility] Heart rate 2024-04-04 14:16:00 95 /min [facility] 2024-04-04 14:16:00 37.11 P[facility] Respiratory rate 2024-04-04 14:16:00 18 /min [facility] Body height 2024-04-04 14:16:00 157.5 cm [facility] Body weight 2024-04-04 14:16:00 110.587 kg [facility] BMI 2024-04-04 14:16:00 44.59 kg/m2 [facility] Oxygen saturation in Arterial blood by Pulse oximetry 2024-02-22 20:38:00 93 /min Dubois o [facility] BP Systolic 2022-10-29 10:41:00 136 mm[Hg] Step hen F Keshawn BP Diastolic 2022-10-29 10:41:00 86 mm[Hg] Hero phen F Keshawn Weight Measured 2022-10-29 10:41:00 301.80 pounds Pete F Keshawn Height Measured 2022-10-29 10:41:00 Pete F Keshawn Body Temperature 2022-10-29 10:41:00 98.40 degrees Pete F Keshawn Heart Rate 2022-10-29 10:41:00 106.00 /min Step hen F K[facility]hawn Respiratory Rate 2022-10-29 10:41:00 Pete F Keshawn BP Systolic 2022-10-27 11:13:00 132 mm[Hg] Step hen F Keshawn BP Diastolic 2022-10-27 11:13:00 82 mm[Hg] Hero phen F Keshawn Weight Measured 2022-10-27 11:13:00 300.80 pounds Pete F Keshawn Height Measured 2022-10-27 11:13:00 Pete F Keshawn Body Temperature 2022-10-27 11:13:00 98.50 degrees Pete F Keshawn Heart Rate 2022-10-27 11:13:00 91.00 /min Ann en F Keshawn Respiratory Rate 2022-10-27 11:13:00 Pete F Keshawn Procedures Procedure Date / Time Performed Performing Clinician Source 49638 - [place] VAGINAL HYSTERECTOMY UTERUS > 250 GM 2024-02-22 16:59:00 Mortensen-Armando, [facility] [id number] - [place] VAGINAL HYSTERECTOMY UTERUS 250 GM/< 2024-02-22 16:59:00 Antonio [facility] [id number] - [place] CYSTOURETHROSCOPY 2024-02-22 16:59:00 Antonio [facility] POCT TEST 2024-02-22 15:36:00 Nikolay Kapadia [facility] POCT TEST 2024-02-22 15:36:00 Nikolay Kapadia [facility] BASIC METABOLIC PANEL (NA, K, CL, CO2, GLUCOSE, BUN, CREATININE, CA) 2024-02-22 15:15:00 [facility] 2024-02-22 15:15:00 Carlos Kapadia [facility] BASIC METABOLIC PANEL (NA, K, CL, CO2, GLUCOSE, BUN, CREATININE, CA) 2024-02-22 15:15:00 [facility] DIFF 2024-02-22 15:15:00 Carlos Kapadia [facility] DSU PRE-OP 2024-02-19 21:35:56 Doctor Unass igned, [place] [facility] POCT TEST 2024-01-11 15:58:00 Rui Chapa [facility] COMP. METABOLIC PANEL (95461) 2024-01-11 15:54:00 Rui Chapa [facility] CBC WITH DIFF 2024-01-11 15:54:00 Rui Chapa [facility] URINALYSIS 2024-01-11 15:54:00 Rui Chapa [facility] HB ABO GROUPING 2024-01-11 15:54:00 Rui Chapa [facility] POCT TEST 2024-01-04 00:00:00 Annie abraham [facility] US PELVIS COMPLETE WITH TRANSVAGINAL 2023-12-31 14:08:32 Antonio [facility] BI ULTRASOUND BREAST LIMITED RIGHT 2023-12-04 16:57:07 Antonio [facility] BI DIAGNOSTIC TOMOSYNTHESIS BILATERAL 2023-12-04 16:08:03 CeciliaArmando, [facility] BI DIAGNOSTIC TOMOSYNTHESIS BILATERAL 2023-12-04 16:08:03 CeciliaArmando, [facility] BI ULTRASOUND BREAST LIMITED RIGHT 2023-06-05 15:26:39 Antonio [facility] BI DIAGNOSTIC TOMOSYNTHESIS RIGHT 2023-06-05 15:01:34 Antonio [facility] XR CHEST 2 VW 2023-03-11 07:28:22 [facility]EN FOR GROUP A 2023-03-11 07:20:00 [facility] RAPID INFLUENZA A/B 2023-03-11 07:20:00 Amairani Roman [facility] NOTICE OF PRIVACY PRACTICES 2023-03-11 07:11:31 Doctor Unassigned, [place] [facility] CONSENT/REFUSAL FOR DIAGNOSIS AND TREATMENT 2023-03-11 07:10:48 Doctor Unassigned, [place] [facility] BI ULTRASOUND BREAST COMPLETE BILATERAL 2022-12-11 20:14:28 [facility] BI DIAGNOSTIC TOMOSYNTHESIS RIGHT 2022-12-11 19:31:34 [facility] ASSIGNMENT OF BENEFITS 2022-11-04 21:11:30 Docto r Unassigned, [place] [facility] CT MAXILLOFACIAL/MANDIBLE W CONTRAST 2022-02-15 01:53:43 Stephon Zazueta Yareli [facility] COMP. METABOLIC PANEL ([id number]) 2022-02-15 01:34:00 Stephon Zazueta [facility] CBC WITH DIFF 2022-02-15 01:34:00 Stephon Zazueta [facility] CONSENT/REFUSAL FOR DIAGNOSIS AND TREATMENT 2022-02-14 23:17:48 Doctor Unassigned, [place] [facility] MAGNESIUM 2021-09-04 18:44:00 Reuben Cifuentes [facility] COMP. METABOLIC PANEL ([id number]) 2021-09-04 18:44:00 Reuben Cifuentes [facility] CBC WITH DIFF 2021-09-04 18:44:00 Reuben Cifuentes [facility] URINALYSIS 2021-09-04 18:44:00 [facility] NOTICE OF PRIVACY PRACTICES 2021-09-04 17:35:45 Doctor Unassigned, [place] [facility] CONSENT/REFUSAL FOR DIAGNOSIS AND TREATMENT 2021-09-04 17:33:55 Doctor Unassigned, [place] [facility] COMPREHENSIVE METABOLIC PANEL 2020-08-24 00:00:00 [facility] LIPID PANEL 2020-08-24 00:00:00 [facility] VITAMIN B12 2020-08-24 00:00:00 [facility] FOLATE 2020-08-24 00:00:00 [facility] HEMOGLOBIN A1C 2020-08-24 00:00:00 [facility] PTH, INTACT 2020-08-24 00:00:00 [facility] VITAMIN E 2020-08-24 00:00:00 [facility] VITAMIN A 2020-08-24 00:00:00 [facility] VITAMIN B1, WHOLE BLOOD 2020-08-24 00:00:00 [facility] IRON AND TIBC 2020-08-24 00:00:00 [facility] TSH W/REFLEX TO FT4 2020-08-24 00:00:00 [facility] CBC (INCLUDES DIFF/PLT) (REFL) 2020-08-24 00:00:00 [facility] QUESTASSURED 25-OH VIT D, (D2,D3) 2020-08-24 00:00:00 [facility] HIGH RISK HPV-THIN PREP 2020-01-11 21:41:00 Tammy Douglas [facility] LAB ONLY PAP SMEAR-LIQUID BASED 2020-01-11 21:41:00 Shasta Douglas [facility] NO SHOW OR MISSED APPOINTMENT POLICY ACKNOWLEDGEMENT 2020-01-11 20:15:36 Doctor Unassigned, [place] [facility] GALV ONLY - HIV TYPE 1 AND 2 ANTIBODY TESTING 2005-05-06 07:31:00 Doshi Devon Magdalena [facility] Encounters Start Date/Time End Date/Time Encounter Type Admission Type Attending [facility] Care Facility Care Department Encounter ID Source 2020-08-24 13:48:25 Outpatient [facility] [id number] [facility] 2025-04-07 08:30:00 2025-04-07 08:30:00 Outpatient R MORTENSEN-HILARIO S, LETI MORTENSEN-HILARIO S LETI [facility] [id number] [facility] 2024-12-23 15:00:00 2024-12-23 15:14:52 Office Visit R CeciliaHilario s Leti [facility] 1.2.840.114 350.1.13.10 4.2.7.2.686 [id number] 134 [id number] [facility] 2024-12-08 00:00:00 2024-12-09 08:55:19 Telephone Johanna Cuellarsol [facility] 1.2.840.114 350.1.13.10 4.2.7.2.686 [id number] [facility] 2024-12-08 00:00:00 2024-12-08 23:59:00 Outpatient ZULY [facility] [id number] [facility] 2024-10-28 15:15:01 2024-10-28 15:15:01 Outpatient [facility] [id number] Pete Liao 2024-10-28 00:00:00 2024-10-28 00:00:00 Outpatient Visit [facility] [id number] Pete Liao 2024-10-27 16:03:51 2024-10-27 16:03:51 Outpatient SFA [facility] [id number] Pete Liao 2024-10-24 14:46:59 2024-10-24 14:46:59 Outpatient SFA [facility] [id number] Pete Liao 2024-10-24 00:00:00 2024-10-24 00:00:00 Outpatient Visit [facility] [id number] Pete Liao 2024-04-27 00:00:00 2024-05-28 18:14:42 Patient Secure Msg Doctor Unassigned, [place] Doctor Unassigned, [place] [facility] 1.840.114 350.1.13.10 4.2.7.2.686 [id number] 134 [id number] [facility] 2024-02-19 00:00:00 2024-05-14 06:34:33 Orders Only Doctor Unassigned, [place] Doctor Unassigned, [place] [facility] 1..840.114 350.1.13.10 4.2.7.2.686 [id number] [facility] 2024-04-28 08:45:00 2024-04-28 08:45:00 Outpatient R MORTENSEN-HILARIO S, LETI MORTENSEN-HILARIO S, LETI [facility] [id number] [facility] 2024-04-04 00:00:00 2024-04-04 13:22:29 Patient Secure Msg Mortensen-Hilario s, Leti [facility] 1..840.114 350.1.13.10 4.2.7.2.686 [id number] [facility] 2024-04-04 08:15:00 2024-04-04 08:23:53 Outpatient R MORTENSEN-HILARIO S, LETI MORTENSEN-HILARIO S, LETI [facility] [id number] [facility] 2024-04-04 08:15:00 2024-04-04 08:23:53 Office Visit Mortensen-Hilario sJohannaLeti [facility] 1.2.840.114 350.1.13.10 4.2.7.2.686 [id number] 134 [id number] [facility] 2024-02-25 00:00:00 2024-04-02 18:19:34 Patient Secure Msg Mortensen-Hilario s, Leti [facility] 1.2.840.114 350.1.13.10 4.2.7.2.686 [id number] [facility] 2024-03-07 15:45:00 2024-03-07 15:51:19 Outpatient R MORTENSEN-HILARIO S, LETI MORTENSEN-HILARIO S, LETI [facility] [id number] [facility] 2024-03-07 15:45:00 2024-03-07 15:51:19 Office Visit Mortensen-Hilario s, Leti [facility] 1..840.114 350.1.13.10 4.2.7.2.686 [id number] [facility] 2024-03-04 15:30:00 2024-03-04 15:30:00 Outpatient R MORTENSEN-HILARIO S, LETI MORTENSEN-HILARIO S, LETI [facility] [id number] [facility] 2024-01-25 00:00:00 2024-02-27 18:23:07 Patient Secure Msg Doctor Unassigned, [place] Doctor Unassigned, [place] [facility] 1.2.840.114 350.1.13.10 4.2.7.2.686 [id number] [facility] 2024-02-22 08:46:00 2024-02-22 15:03:00 Outpatient R MORTENSEN-HILARIO S, LETI MORTENSEN-HILARIO S, LETI [facility] [id number] [facility] 2024-02-22 08:46:00 2024-02-22 15:03:00 Hospital Encounter Timur-Hilario s, Leti [facility] 1.2.840.114 350.1.13.10 4.2.7.2.686 [id number] [facility] 2024-02-22 11:10:00 2024-02-22 14:30:00 Surgery Mortensen-Hilario s, Leti [facility] 1.2.840.114 350.1.13.10 4.2.7.2.686 [id number] [facility] 2024-02-20 00:00:00 2024-02-22 12:01:44 Patient Secure Msg Doctor Unassigned, [place] Doctor Unassigned, [place] [facility] 1.2.840.114 350.1.13.10 4.2.7.2.686 [id number] 134 [id number] [facility] 2024-02-20 00:00:00 2024-02-22 09:09:12 Patient Secure Msg Yefri s, Leti [facility] 1.2.840.114 350.1.13.10 4.2.7.2.686 [id number] [facility] 2024-02-20 09:00:00 2024-02-20 09:15:00 Animal Nurse Visit Pob, Adc Lab Main Timur-Hilario s, Leti [facility] 1.2.840.114 350.1.13.10 4.2.7.2.686 [id number] [facility] 2024-02-20 09:00:00 2024-02-20 09:00:00 Outpatient R MORTENSEN-HILARIO S, LETI MORTENSEN-HILARIO S, LETI [facility] [id number] [facility] 2024-02-19 15:00:00 2024-02-19 15:23:31 Outpatient R MORTENSEN-HILARIO S, LETI TIMUR-HILARIO S, LETI [facility] [id number] [facility] 2024-02-19 15:00:00 2024-02-19 15:23:31 Office Visit Yefri sJohannaLeti [facility] 1.2.840.114 350.1.13.10 4.2.7.2.686 [id number] [facility] 2024-01-19 00:00:00 2024-01-19 10:41:22 [facility] 1.2840.114 350.1.13.10 4.2.7.2.686 [id number] [facility] 2024-01-19 08:15:00 2024-01-19 08:20:29 Outpatient R TIMUR-HILARIO S, LETI TIMUR-HILARIO S, LETI [facility] [id number] [facility] 2024-01-19 08:15:00 2024-01-19 08:20:29 [facility] 1.2840.114 350.1.13.10 4.2.7.2.686 [id number] [facility] 2024-01-11 10:24:00 2024-01-11 13:28:00 Emergency X RUI CHAPA JOSHUA [facility] [id number] [facility] 2024-01-11 10:24:00 2024-01-11 13:28:00 Emergency Rui Chapa [facility] 1.2.840.114 350.1.13.10 4.2.7.2.686 [id number] [facility] 2024-01-11 00:00:00 2024-01-11 13:17:39 Telephone Mortensen-Hilario s, Leti [facility] N[facility] 1.2.840.114 350.1.13.10 4.2.7.2.686 [id number] [facility] 2024-01-08 09:30:00 2024-01-08 09:46:13 Outpatient R MORTENSEN-HILARIO S, LETI MORTENSEN-HILARIO S, LETI [facility] [id number] [facility] 2024-01-08 09:30:00 2024-01-08 09:46:13 Office Visit [facility]ilario s, [facility] 1.2.840.114 350.1.13.10 4.2.7.2.686 [id number] [facility] 2024-01-04 14:00:00 2024-01-04 14:10:10 Outpatient R MORTENSEN-HILARIO S, LETI MORTENSEN-HILARIO S, LETI [facility] [id number] [facility] 2024-01-04 14:00:00 2024-01-04 14:10:10 Office Visit [facility]ilario s, [facility] 1.2.840.114 350.1.13.10 4.2.7.2.686 [id number] [facility] 2023-12-31 08:26:41 2023-12-31 23:59:00 Outpatient R MORTENSEN-HILARIO S, LETI MORTENSEN-HILARIO S, LETI [facility] [id number] [facility] 2023-12-31 08:26:41 2023-12-31 23:59:00 Hospital Encounter Mortensen-Hilario s, Leti [facility] 1.2.840.114 350.1.13.10 4.2.7.2.686 [id number] [facility] 2023-12-22 09:30:00 2023-12-22 09:45:00 Animal Nurse Visit 2, Adc Lab Mortensen-Hilario s, Leti 2, Adc Lab [facility] N[facility]ILD[facility] 1.2.840.114 350.1.13.10 4.2.7.2.686 [id number] [facility] 2023-12-22 08:45:00 2023-12-22 09:04:42 Outpatient R MORTENSEN-HILARIO S, LETI MORTENSEN-HILARIO S, LETI [facility] [id number] [facility] 2023-12-22 08:45:00 2023-12-22 09:04:42 Office Visit Mortensen-Hilario s, Leti [facility] 1.2.840.114 350.1.13.10 4.2.7.2.686 [id number] [facility] 2023-12-17 11:00:00 2023-12-17 11:00:00 Outpatient R MORTENSEN-HILARIO S, LETI MORTENSEN-HILARIO S, LETI [facility] [id number] [facility] 2023-12-04 10:30:00 2023-12-04 23:59:00 Hospital Encounter Mortensen-Hilario s, Leti [facility] 1.2.840.114 350.1.13.10 4.2.7.2.686 [id number] [facility] 2023-12-04 10:04:48 2023-12-04 10:29:00 Outpatient R MORTENSEN-HILARIO S, LETI MORTENSEN-HILARIO S, LETI [facility] [id number] [facility] 2023-12-04 10:04:48 2023-12-04 10:29:00 Hospital Encounter Yefri bay Leti [facility] 1.2.840.114 350.1.13.10 4.2.7.2.686 [id number] [facility] 2023-06-05 08:09:32 2023-06-05 23:59:00 Hospital Encounter Yefri phu Leti [facility] 1.2.840.114 350.1.13.10 4.2.7.2.686 [id number] [facility] 2023-06-05 08:08:56 2023-06-05 08:08:56 Outpatient R MORTENSENDiptiHILARIO Phu, LETIShena SCHROEDER S LETI [facility] [id number] [facility] 2023-06-05 08:08:56 2023-06-05 08:08:56 [facility] 1.2.840.114 350.1.13.10 4.2.7.2.686 [id number] [facility] 2023-06-05 00:00:00 2023-06-05 00:00:00 Case Management Yefri bay Leti [facility] 1.2.840.114 350.1.13.10 4.2.7.2.686 [id number] [facility] 2023-03-11 01:22:00 2023-03-11 01:59:00 Emergency X FLORY ROMAN SALMIN [facility] ERT [id number] [facility] 2023-03-11 01:22:00 2023-03-11 01:59:00 Emergency Flory Roman [facility] 1.2.840.114 350.1.13.10 4.2.7.2.686 [id number] [facility] 2023-01-05 14:00:00 2023-01-05 14:30:00 Office [facility] 1.2840.114 350.1.13.10 4.2.7.2.686 [id number] [facility] 2023-01-05 14:00:00 2023-01-05 14:00:00 Outpatient R MORTENSEN-HILARIO S, LETI MORTENSEN-HILARIO S, LETI [facility] [id number] [facility] 2022-12-12 00:00:00 2022-12-12 00:00:00 Case Management Mortensen-Hilario s Leti [facility] 1.840.114 350.1.13.10 4.2.7.2.686 [id number] [facility] 2022-12-11 13:35:47 2022-12-11 23:59:00 Outpatient R MORTENSEN-HILARIO S, LETI MORTENSEN-HILARIO S, LETI [facility] [id number] [facility] 2022-12-11 13:35:47 2022-12-11 23:59:00 Hospital Encounter Mortensen-Hilario s Leti [facility] 1.2840.114 350.1.13.10 4.2.7.2.686 [id number] [facility] 2022-12-11 13:34:52 2022-12-11 13:34:52 [facility] 1.2840.114 350.1.13.10 4.2.7.2.686 [id number] [facility] 2022-11-21 00:00:00 2022-11-21 00:00:00 Case Management Leti [facility] 1.284.114 350.1.13.10 4.2.7.2.686 [id number] [facility] 2022-11-13 11:31:14 2022-11-13 23:59:00 Hospital Encounter Leti Cuellar [facility] 1.84.114 350.1.13.10 4.2.7.2.686 [id number] [facility] 2022-11-13 11:30:56 2022-11-13 11:30:56 Outpatient R TIMUR-HILARIO S, LETI [facility] [id number] [facility] 2022-11-13 11:30:56 2022-11-13 11:30:56 Hospital Encounter Yefri sLeti [facility] [facility] 1.84.114 350.1.13.10 4.2.7.2.686 [id number] [facility] 2022-11-04 16:30:00 2022-11-04 16:54:11 Outpatient R MORTENSEN-HILARIO S, LETI MORTENSEN-HILARIO S, LETI [facility] [id number] [facility] 2022-11-04 16:30:00 2022-11-04 16:54:11 [facility] 1.284.114 350.1.13.10 4.2.7.2.686 [id number] [facility] 2022-11-04 00:00:00 2022-11-04 00:00:00 Orders Only Doctor Unassigned, [place] [facility] 1.284.114 350.1.13.10 4.2.7.2.686 [id number] [facility] 2022-07-14 14:00:00 2022-07-14 14:00:00 Outpatient R YEFRI S, LETI MORTENSENDiptiHILARIO S, LETI [facility] [id number] [facility] 2022-02-14 17:39:00 2022-02-14 20:46:00 Emergency X OLIVIER KRANTHI [facility] ERT [id number] [facility] 2022-02-14 17:39:00 2022-02-14 20:46:00 Emergency Stephon Zazueta Brent J [facility] 1.2.840.114 350.1.13.10 4.2.7.2.686 [id number] [facility] 2021-09-04 12:48:00 2021-09-04 14:57:00 Emergency REUBEN BARNES [facility] ERT [id number] [facility] 2021-09-04 12:48:00 2021-09-04 14:57:00 Emergency Reuben Cifuentes [facility] 1.2.840.114 350.1.13.10 4.2.7.2.686 [id number] [facility] 2021-03-20 00:00:00 2021-03-20 00:00:00 Telephone Michelle Babcock [facility] 1.2.840.114 350.1.13.58 9.2.7.2.686 [id number] [facility] 2021-01-11 10:00:00 2021-01-11 10:00:00 Outpatient R BARBERJULITO SHASTA [facility] [id number] [facility] 2020-12-06 09:36:47 2020-12-06 10:22:45 Nutrition Acosta Cortes [facility] [place] [facility] [address] AND WOM[facility] 1.2.840.114 350.1.13.58 9.2.7.2.686 [id number] [facility] 2020-09-04 00:00:00 2020-09-04 00:00:00 Telephone Michelle Babcock [facility] [address] 1.2.840.114 350.1.13.58 9.2.7.2.686 [id number] [facility] 2020-08-24 10:37:13 2020-08-24 12:23:35 Office Visit Michelle Babcock [facility] [place] [address] AND WOMENS 1.2.840.114 350.1.13.58 9.2.7.2.686 [id number] [facility] 2020-01-23 00:00:00 2020-01-23 00:00:00 Telephone AdumShasta [facility] 1.2.840.114 350.1.13.10 4.2.7.2.686 [id number] 2020-01-23 00:00:00 2020-01-23 00:00:00 Telephone AdShasta chatterjee PRKERVIN [facility] Building 1.2.840.114 350.1.13.10 4.2.7.2.686 [id number] [facility] 2020-01-11 15:16:42 2020-01-11 16:34:49 Office Visit AdumShasta PRKERVIN [facility] Building 1.2.840.114 350.1.13.10 4.2.7.2.686 [id number] [facility] 2020-01-11 15:16:42 2020-01-11 16:34:49 Office Visit AdumShasta PRKERVIN [facility] Building 1.2.840.114 350.1.13.10 4.2.7.2.686 [id number] 2020-01-11 15:30:00 2020-01-11 15:30:00 Outpatient SHASTA RIVERA [facility] [id number] [facility] 2020-01-11 00:00:00 2020-01-11 00:00:00 Orders Only Doctor Unassigned, [place] [facility] 1.2.840.114 350.1.13.10 4.2.7.2.686 [id number] [facility] Results Test Description Test Time Test Comments Results Result Co mments Source [facility] (NA, K, CL, CO2, Glucose, BUN, Creatinine, CA)2024-02-22 15:42:55* Test Item Value Reference Range Interpretation Comme nts NA (test code = 0685533860) 141 mmol/L 135-145 K (test code = 9528984428) 4.3 mmol/L 3.5-5.0 CL (test code = 0010478905) 110 mmol/L 98-108 H CO2 TOTAL (test code = 0194609867) 23 mmol/L 23-31 AGAP (test code = 2435884672) 8 2-16 BUN (test code = 1904596932) 13 mg/dL 7-23 GLUCOSE (test code = 2575505141) 84 mg/dL 70-110 CREATININE (test code = 2160-0) 0.73 mg/dL 0.50-1.04 CALCIUM (test code = 2272914574) 9.2 mg/dL 8.6-10.6 eGFR (test code = 52008-6) 106.1 mL/min/1.73m2 CKD-EPI eGFR (2020). Assuming creatinine has been stable day-to-day for at least three months, the eGFR indicates Category G1 (>= 90 mL/min/1.73 m2) Lab Interpretation (test code = 38486-6) Abnormal [facility] [id number] 15:36:00* Test Item Value Reference Range Interpretation Comme nts POCT PREG (test code = 1605) Negative On board controls acceptable with C Line (test code = 3574) Yes POCT PREG LOT # (test code = 3575) [id number] POCT PREG TEST DATE ( test code = 3576) 2024-08-06 [facility] [id number] 15:36:00* Test Item Value Reference Range Interpretation Comme nts POCT PREG (test code = 1605) Negative On board controls acceptable with C Line (test code = 3574) Yes POCT PREG LOT # (test code = 3575) [id number] POCT PREG TEST DATE ( test code = 3576) 2024-08-06 [facility] with Iybaxocfcccq5829-91-88 15:28:56* Test Item Value Reference Range Interpretation Comme nts WBC (test code = 6690-2) 6.52 4.30-11.10 RBC (test code = 789-8) 4.41 3.93-5.25 HGB (test code = 718-7) 11.6 g/dL 11.6-15.0 HCT (test code = 4544-3) 37.7 % 35.7-45.2 MCV (test code = 787-2) 85.5 fL 80.6-95.5 MCH (test code = 785-6) 26.3 pg 25.9-32.8 MCHC (test code = 786-4) 30.8 g/dL 31.6-35.1 L RDW-SD (test code = 69409-3) 47.8 fL 39.0-49.9 RDW-CV (test code = 788-0) 15.3 % 12.0-15.5 PLT (test code = 777-3) 310 166-358 MPV (test code = 48626-8) 9.2 fL 9.5-12.9 L NRBC/100 WBC (test code = 3469024396) 0.0 0.0-10.0 NRBC x10^3 (test code = 0001674864) See_Comment [Automated messa ge] The system which generated this result transmitted reference range: 10*3/?L. The reference range was not used to interpret this result as normal/abnormal. GRAN MAT (NEUT) % (test code = 770-8) 64.0 % IMM GRAN % (test code = 1072370338) 0.30 % LYMPH % (test code = 736-9) 21.0 % MONO % (test code = 5905-5) 8.4 % EOS % (test code = 713-8) 5.2 % BASO % (test code = 706-2) 1.1 % GRAN MAT x10^3(ANC) (test code = 2292105101) 4.17 10*3/uL 1.88-7.09 IMM GRAN x10^3 (test code = 7778449661) 0.00-0.06 LYMPH x10^3 (test code = 731-0) 1.37 10*3/uL 1.32-3.29 MONO x10^3 (test code = 742-7) 0.55 10*3/uL 0.33-0.92 EOS x10^3 (test code = 711-2) 0.34 10*3/uL 0.03-0.39 BASO x10^3 (test code = 704-7) 0.07 10*3/uL 0.01-0.07 Lab Interpretation (test code = 55066-3) Abnormal [facility] with Ebpmlojrqfau9821-15-91 15:28:56* Test Item Value Reference Range Interpretation Comme nts WBC (test code = 6690-2) 6.52 4.30-11.10 RBC (test code = 789-8) 4.41 3.93-5.25 HGB (test code = 718-7) 11.6 g/dL 11.6-15.0 HCT (test code = 4544-3) 37.7 % 35.7-45.2 MCV (test code = 787-2) 85.5 fL 80.6-95.5 MCH (test code = 785-6) 26.3 pg 25.9-32.8 MCHC (test code = 786-4) 30.8 g/dL 31.6-35.1 L RDW-SD (test code = 51281-5) 47.8 fL 39.0-49.9 RDW-CV (test code = 788-0) 15.3 % 12.0-15.5 PLT (test code = 777-3) 310 166-358 MPV (test code = 42200-5) 9.2 fL 9.5-12.9 L NRBC/100 WBC (test code = 2668803068) 0.0 0.0-10.0 NRBC x10^3 (test code = 7453628280) See_Comment [Automated messa ge] The system which generated this result transmitted reference range: 10*3/?L. The reference range was not used to interpret this result as normal/abnormal. GRAN MAT (NEUT) % (test code = 770-8) 64.0 % IMM GRAN % (test code = 4584359003) 0.30 % LYMPH % (test code = 736-9) 21.0 % MONO % (test code = 5905-5) 8.4 % EOS % (test code = 713-8) 5.2 % BASO % (test code = 706-2) 1.1 % GRAN MAT x10^3(ANC) (test code = 6965807786) 4.17 10*3/uL 1.88-7.09 IMM GRAN x10^3 (test code = 2899600016) 0.00-0.06 LYMPH x10^3 (test code = 731-0) 1.37 10*3/uL 1.32-3.29 MONO x10^3 (test code = 742-7) 0.55 10*3/uL 0.33-0.92 EOS x10^3 (test code = 711-2) 0.34 10*3/uL 0.03-0.39 BASO x10^3 (test code = 704-7) 0.07 10*3/uL 0.01-0.07 Lab Interpretation (test code = 47912-4) Abnormal [facility] [id number]-[id number] 21:35:56Ordered by an unspecified provider.General acute hospital TEST 2024-01-11 15:58:00* Test Item Value Reference Range Interpretation Comme nts POCT PREG (test code = 1605) Negative On board controls acceptable with C Line (test code = 3574) Yes Lab Interpretation (test cod e = 04258-6) Normal [facility] acute hospital [id number] 18:59:00* Test Item Value Reference Range Interpretation Comme nts POCT PREG (test code = 1605) Negative On board controls acceptable with C Line (test code = 3574) Yes POCT PREG LOT # (test code = 3575) POCT PREG TEST DATE ( test code = 3576) [facility] PELVIS COMPLETE WITH [id number] 14:16:16HISTORY: ?AUB. TECHNIQUE: Both transabdominal and transvaginal [...] x 2.1 x1.7 cm ( 5.08 ml). CONCLUSIONS:Thickened endometrial stripe with heterogeneous echogenicity,suggestive of cystic endometrial hyperplasia.[facility] ULTRASOUND BREAST LIMITED [id number] 20:12:13Examination:BI DIAGNOSTIC TOMOSYNTHESIS BILATERALBI ULTRASOUND BREAST LIMITED [...] the nipple. Follow-up imaging in 12 months is recommended to establish two years of stability. BIRADS [...] the study and agree with the resident's/fellow's report.[facility] DIAGNOSTIC TOMOSYNTHESIS BDGDLKGYM6044-37-27 20:12:13Examination:BI DIAGNOSTIC TOMOSYNTHESIS BILATERALBI ULTRASOUND BREAST LIMITED [...] the study and agree with the resident's/fellow's report.[facility] BI ULTRASOUND BREAST LIMITED [id number] 17:13:21Examination:BI DIAGNOSTIC TOMOSYNTHESIS RIGHTBI ULTRASOUND BREAST LIMITED [...] nipple. This favor to correlate with the mamm ogram findings. Short term follow up 3D mammogram [...] associated vascularity is noted. Again noted at 4: 00, 5 cm from the nipple is a 11 x 5 x 12 mm complicated cyst versus mass (this previously bstdmugn42 mm in greatest dimension); accounting for differences [...] BI-RADS Category: Right 3 - Probably Benign [facility] DIAGNOSTIC TOMOSYNTHESIS [id number] 17:13:21Examination:BI DIAGNOSTIC TOMOSYNTHESIS [facility] ULTRASOUND BREAST LIMITED RIGHT History:Patient is 43 [...] mm complicated cyst versus mass (this previously uafcrvcp58 mm in greatest dimension); accounting for differences [...] BI-RADS Category: Right 3 - Probably Benign [facility]. METABOLIC PANEL (09095)2022-02-15 02:10:44* Test Item Value Reference Range Interpretation Comme nts NA (test code = 7097546675) 141 mmol/L 135-145 K (test code = 5705576700) 4.1 mmol/L 3.5-5.0 CL (test code = 4667161092) 105 mmol/L 98-108 CO2 TOTAL (test code = 3141836929) 28 mmol/L 23-31 AGAP (test code = 5380983876) 2-16 BUN (test code = 2776357714) 18 mg/dL 7-23 GLUCOSE (test code = 8412737872) 103 mg/dL 70-110 CREATININE (test code = 9465596188) 0.76 mg/dL 0.50-1.04 TOTAL BILI (test code = 3411302719) 0.5 mg/dL 0.1-1.1 CALCIUM (test code = 1254104341) 9.7 mg/dL 8.6-10.6 T PROTEIN (test code = 1523660597) 7.6 g/dL 6.3-8.2 ALBUMIN (test code = 4173314384) 4.5 g/dL 3.5-5.0 ALK PHOS (test code = 6369554587) 84 U/L 34-122 ALTv (test code = 1742-6) 21 U/L 5-35 AST(SGOT) (test code = 6190427427) 21 U/L 13-40 eGFR (test code = 6178328667) mL/min/1.73m2 FLORENCIA (test code = FLORENCIA) Association [...] or urine or abnormalities in imaging tests). [facility] WITH [id number] 01:47:57* Test Item Value Reference Range Interpretation Comme nts WBC (test code = 6690-2) See_Comment [Automated [employer]] The system which generated this result transmitted reference range: 4.30 - 11.10 10*3/?L. The reference range was not used to interpret this result as normal/abnormal. RBC (test code = 789-8) See_Comment [[employer]] The system which generated this result transmitted [...] g/dL 31.6-35.1 L RDW-SD (test code = 10932-9) 43.5 fL 39.0-49.9 RDW-CV (test code = 788-0) 14.6 % 12.0-15.5 PLT (test code = 777-3) See_Comment H [[employer]] The system which generated this result transmitted reference range: 166 - 358 10*3/?L. The reference range was not used to interpret this result as normal/abnormal. MPV (test code = 42129-2) 9.4 fL 9.5-12.9 L NRBC/100 WBC (test code = 9771443136) See_Comment [Automated me ssage] The system which generated this result transmitted reference range: 0.0 - 10.0 /100 WBCs. The reference range was not used to interpret this result as normal/abnormal. NRBC x10^3 (test code = 5145738594) See_Comment [Automated messa ge] The system which generated this result transmitted reference range: 10*3/?L. The reference range was not used to interpret this result as normal/abnormal. GRAN MAT (NEUT) % (test code = 770-8) 59.2 % IMM GRAN % (test code = 8777256077) 0.50 % LYMPH % (test code = 736-9) 25.4 % MONO % (test code = 5905-5) 7.6 % EOS % (test code = 713-8) 6.2 % BASO % (test code = 706-2) 1.1 % GRAN MAT x10^3(ANC) (test code = 3365549179) 5.77 10*3/uL 1.88-7.09 IMM GRAN x10^3 (test code = 0975635869) 0.05 10*3/uL 0.00-0.06 LYMPH x10^3 (test code = 731-0) 2.47 10*3/uL 1.32-3.29 MONO x10^3 (test code = 742-7) 0.74 10*3/uL 0.33-0.92 EOS x10^3 (test code = 711-2) 0.60 10*3/uL 0.03-0.39 H BASO x10^3 (test code = 704-7) 0.11 10*3/uL 0.01-0.07 H Lab Interpretation (test code = 88618-6) Abnormal [facility] 19:13:31* Test Item Value Reference Range Interpretation Comme nts MAGNESIUM (test code = 1203847130) 1.8 mg/dL 1.7-2.4 Lab Interpretation (test cod e = 44976-1) Normal [facility] MET[facility]OLIC PANEL (62089)2021-09-04 19:13:11* Test Item Value Reference Range Interpretation Comme nts NA (test code = 7988561620) 140 mmol/L 135-145 K (test code = 8605801500) 4.3 mmol/L 3.5-5.0 CL (test code = 7787447681) 104 mmol/L 98-108 CO2 TOTAL (test code = 6051608231) 25 mmol/L 23-31 AGAP (test code = 7328169474) 2-16 BUN (test code = 9273332384) 12 mg/dL 7-23 GLUCOSE (test code = 4776212612) 90 mg/dL 70-110 CREATININE (test code = 3365727038) 0.70 mg/dL 0.50-1.04 TOTAL BILI (test code = 0479177192) 0.8 mg/dL 0.1-1.1 CALCIUM (test code = 7164218552) 9.5 mg/dL 8.6-10.6 T PROTEIN (test code = 2971346818) 7.5 g/dL 6.3-8.2 ALBUMIN (test code = 4212751621) 4.4 g/dL 3.5-5.0 ALK PHOS (test code = 6013331582) 86 U/L 34-122 ALTv (test code = 1742-6) 21 U/L 5-35 AST(SGOT) (test code = 5727812674) 22 U/L 13-40 eGFR (test code = 5490378725) mL/min/1.73m2 FLORENCIA (test code = FLORENCIA) Association [...] or urine or abnormalities in imaging tests). [facility] WITH [id number] 18:53:44* Test Item Value Reference Range Interpretation Comme nts WBC (test code = 6690-2) See_Comment [Automated [employer]] The system which generated this result transmitted reference range: 4.30 - 11.10 10*3/?L. The reference range was not used to interpret this result as normal/abnormal. RBC (test code = 789-8) See_Comment [[employer]] The system which generated this result transmitted [...] 31.6 g/dL 31.6-35.1 RDW-SD (test code = 94888-7) 42.6 fL 39.0-49.9 RDW-CV (test code = 788-0) 14.0 % 12.0-15.5 PLT (test code = 777-3) See_Comment [[employer]] The system which generated this result transmitted reference range: 166 - 358 10*3/?L. The reference range was not used to interpret this result as normal/abnormal. MPV (test code = 72723-9) 9.1 fL 9.5-12.9 L NRBC/100 WBC (test code = 3842787546) See_Comment [Automated me ssage] The system which generated this result transmitted reference range: 0.0 - 10.0 /100 WBCs. The reference range was not used to interpret this result as normal/abnormal. NRBC x10^3 (test code = 8415543338) <0.01 See_Comment [Automated messa ge] The system which generated this result transmitted reference range: 10*3/?L. The reference range was not used to interpret this result as normal/abnormal. GRAN MAT (NEUT) % (test code = 770-8) 60.8 % IMM GRAN % (test code = 2669959604) 0.40 % LYMPH % (test code = 736-9) 26.5 % MONO % (test code = 5905-5) 7.3 % EOS % (test code = 713-8) 4.1 % BASO % (test code = 706-2) 0.9 % GRAN MAT x10^3(ANC) (test code = 1398466456) 4.14 10*3/uL 1.88-7.09 IMM GRAN x10^3 (test code = 4853415594) 0.03 10*3/uL 0.00-0.06 LYMPH x10^3 (test code = 731-0) 1.81 10*3/uL 1.32-3.29 MONO x10^3 (test code = 742-7) 0.50 10*3/uL 0.33-0.92 EOS x10^3 (test code = 711-2) 0.28 10*3/uL 0.03-0.39 BASO x10^3 (test code = 704-7) 0.06 10*3/uL 0.01-0.07 Lab Interpretation (test code = 07236-9) Abnormal [facility] (INCLUDES DIFF/PLT) (REFL)2020-08-25 11:00:00* Test Item Value [...] Information: ? ?Site ID: RGA ? ?Name: [employer] ? ?Address: [address] [place] [phone] ? ?Director: KY MADISON MD Lab Interpretation (test code = 84289-2) [facility] [id number] 11:00:00* Test Item Value Reference Range Interpretation Comme nts GLUCOSE (test code = 2345-7) 80 mg/dL 65-99 ? Fastin g reference interval UREA NITROGEN (BUN) (test code = 3094-0) 12 mg/dL 7-25 CREATININE (test code = 2160-0) 0.66 mg/dL 0.50-1.10 eGFR NON- (test code = 20624-9) See_Comment [Automated message] The system which generated this result transmitted reference range: > OR = 60 mL/min/1.73m2. The reference range was not used to interpret this result as normal/abnormal. eGFR (test code = 56009-5) See_Comment [Automated message] The system which generated [...] mmol/L 98-110 CARBON DIOXIDE (test code = 8-9) 28 mmol/L 20-32 CALCIUM (test code = 77649-9) 9.5 mg/dL 8.6-10.2 PROTEIN, TOTAL (test code = 2885-2) 7.4 g/dL 6.1-8.1 ALBUMIN (test code = 1751-7) 4.2 g/dL 3.6-5.1 GLOBULIN (test code = 73608-9) See_Comment [Automated message] The system which generated [...] Information: ? ?Site ID: RGA ? ?Name: [employer] ? ?Address: [address] [place] [address] ? ?Director: [place] MADISON MD [facility] SystemHvldyhFjnaue0120-21-60 11:00:00* Test Item Value Reference Range Interpretation Comme nts FOLATE, SERUM (test code = 2284-8) 16.7 ng/mL ? Reference Range ? Low: ? <3.4 ? Borderline: ? ?3.4-5.4 ? Normal: ?>5.4 RAC (test code = RAC) Performing Organization Information: ? ?Site ID: RGA ? ?Name: [employer] ? ?Address: [address] [place] [address] ? ?Director: KY MADISON MD PR HealthHemoglobin [id number] 11:00:00* Test Item Value Reference Range Interpretation [...] diagnosis of diabetes in children. According to [place] Diabetes [employer] (ADA)guidelines, hemoglobin A1c <7.0% represents [...] Information: ? ?Site ID: RGA ? ?Name: [employer] ? ?Address: [address] [place] [address] ? ?Director: KY MADISON MD [facility] SystemIron and [id number] 11:00:00* Test Item Value Reference Range Interpretation [...] Information: ? ?Site ID: RGA ? ?Name: [employer] ? ?Address: [address] [place] [phone] ? ?Director: KY MADISON MD Lab Interpretation (test code = 60991-4) Abnormal PR HealthLipid [id number] 11:00:00* Test Item Value Reference Range Interpretation [...] 145 mg/dL <150 LDL-CHOLESTEROL (test code = 67070-4) mg/dL (calc) H Reference range: <100 Desirable range <100 mg/dL for primary prevention; ?<70 mg/dL for patients with CHD or diabetic patients with > or = 2 CHD risk factors. LDL-C is now calculated using the Karl-Merritt calculation, which is a validated novel method providing better accuracy than the Friedewald equation in the estimation of LDL-C. Karl NARVAEZ et al. ALESSIO. 2013;310(19): 1136-3983 (http://education .[employer] .[employer]/faq/KQL119) CHOL/HDLC RATIO (test code = 9830-1) See_Comment [Automated message] The system which generated this result transmitted reference range: <5.0 (calc). The reference range was not used to interpret this result as normal/abnormal. NON HDL CHOLESTEROL (test code = 06678-0) See_Comment H For patients wit h diabetes [...] Information: ? ?Site ID: RGA ? ?Name: [employer] ? ?Address: [address] [place] [phone] ? ?Director: KY MADISON MD Lab Interpretation (test code = 74071-0) Abnormal PR HealthTSH W/REFLEX TO [id number] 11:00:00* Test Item Value Reference Range Interpretation Comme nts TSH W/REFLEX TO FT4 (test code = 3016-3) mIU/L ?Referen ce Range ?> or = 20 Years ?0.40-4.50 ? Ranges ?First trimester ? ?0.26-2.66 ?Second trimester ? 0.55-2.73 ?Third trimester ? ?0.43-2.91 RAC (test code = RAC) Performing Organization Information: ? ?Site ID: RGA ? ?Name: [employer] ? ?Address: [address] [place] [address] ? ?Director: KY MADISON MD [facility] SystemVitamin [id number] 11:00:00* Test Item Value Reference Range Interpretation Comme nts VITAMIN B12 (test code = 2132-9) 1041 pg/mL 200-1100 RAC (test code = RAC) Performing Organization Information: ? ?Site ID: RGA ? ?Name: [employer] ? ?Address: [address] [place] [address] ? ?Director: KY MADISON MD [facility] History and Physical Notes Date/Time Note Provider Source 2024-02-22 10:32:11 The patient was seen and examined on 02/22/24. There have been no changes in assessment and plan. Indication for procedure is Abnormal uterine bleeding. Will proceed with scheduled Total vaginal hysterectomy, cystoscopy . Informed consent was reviewed and all questions were answered. GRINDER Source Note - Leti Alvarez MD - 02/19/2024 3:00 PM DISK GRINDER Chief complaint: Chief Complaint Patient presents with Pre-Op Exam 43 year old No LMP recorded. presents for preop. Diagnosis: Abnormal uterine bleeding Planned procedure: Total vaginal hysterectomy, cystoscopy Date of surgery: 02/22/24 Histories OB History Para Term AB Living 3 3 3 3 SAB IAB Ectopic Multiple Live Births 3 # Outcome Date GA Lbr Kristofer/2nd Weight Sex Type Anes PTL Lv 3 Term 2 Term 1 Term Obstetric Comments Three Vaginal Deliveries Larges 7.6 OZ 1999 2006 2006 Past Medical History: Diagnosis Date Abnormal uterine bleeding (AUB) 01/04/2024 Anemia Anxiety Depression Hypertension Kidney stones Mixed hyperlipidemia Urinary incontinence Family History Problem Relation Age of Onset Hypertension Mother Diabetes Mother Kidney Cancer Mother Arthritis NoFHx Asthma NoFHx defects NoFHx Breast Cancer NoFHx Colon Cancer NoFHx Ovarian Cancer NoFHx Uterine Cancer NoFHx Cancer NoFHx Depression NoFHx Genetic NoFHx Heart NoFHx High cholesterol NoFHx Mental retardation NoFHx Neurological NoFHx Osteoporosis NoFHx Psychiatry NoFHx Other - see comments NoFHx Family Status Relation Name Status Mo Alive Fa NoFHx (Not Specified) No partnership data on file Past Surgical History: Procedure Laterality Date CHOLECYSTECTOMY 2011 EXTRACORPOREAL SHOCKWAVE LITHOTRIPSY 2013 HAND TENDON REPAIR Left 03/11/2014 Surgeon: Frederick Gu MD; Location: [facility] TONSILLECTOMY TUBAL LIGATION 2007 Social History Socioeconomic History Marital status: Tobacco Use Smoking status: Every Day Current packs/day: 0.00 Types: Cigarettes Last attempt to quit: 07/27/2015 Years since quittin.5 Smokeless tobacco: Never Tobacco comments: 5 ciggs a day Vaping Use Vaping status: Never Used Substance and Sexual Activity Alcohol use: Yes Comment: Social Drinker Drug use: Never Sexual activity: Yes Partners: Male control/protection: Surgical Comment: tubal Social History Narrative Denied domestic or physical violence w/i the home Sabianist Preference: none Social History Substance and Sexual Activity Sexual Activity Yes Partners: Male control/protection: Surgical Comment: tubal Labs No visits with results within 1 Month(s) from this visit. Latest known visit with results is: Admission on 01/11/2024, Discharged on 01/11/2024 Component Date Value ABO & RH 01/11/2024 A POSITIVE IAT 01/11/2024 Negative WBC 01/11/2024 6.85 RBC 01/11/2024 4.36 HGB 01/11/2024 11.2 (L) HCT 01/11/2024 36.9 MCV 01/11/2024 84.6 MCH 01/11/2024 25.7 (L) MCHC 01/11/2024 30.4 (L) RDW-SD 01/11/2024 45.0 RDW-CV 01/11/2024 14.7 PLT 01/11/2024 328 MPV 01/11/2024 9.9 NRBC/100 WBC 01/11/2024 0.0 NRBC x10 3 01/11/2024 <0.01 GRAN MAT (NEUT) % 01/11/2024 63.6 IMM GRAN % 01/11/2024 0.60 LYMPH % 01/11/2024 23.2 MONO % 01/11/2024 7.4 EOS % 01/11/2024 4.5 BASO % 01/11/2024 0.7 GRAN MAT x10 3 (ANC) 01/11/2024 4.35 IMM GRAN x10 3 01/11/2024 0.04 LYMPH x10 3 01/11/2024 1.59 MONO x10 3 01/11/2024 0.51 EOS x10 3 01/11/2024 0.31 BASO x10 3 01/11/2024 0.05 POCT PREG 01/11/2024 Negative On board controls accept* 01/11/2024 Yes APPEARANCE 01/11/2024 Cloudy (A) COLOR 01/11/2024 Rena (A) PH 01/11/2024 6.0 SP GRAVITY 01/11/2024 1.024 GLU U QUAL 01/11/2024 Normal BLOOD 01/11/2024 3+ (A) KETONES 01/11/2024 Negative PROTEIN 01/11/2024 100 mg/dL (A) UROBILIN 01/11/2024 Normal BILIRUBIN 01/11/2024 Negative NITRITE 01/11/2024 Negative LEUK RADAMES 01/11/2024 Negative RBC/HPF 01/11/2024 >182 (H) WBC/HPF 01/11/2024 3 BACTERIA 01/11/2024 Negative MUCOUS 01/11/2024 Marked (A) SQ EPITH 01/11/2024 5 NA 01/11/2024 137 K 01/11/2024 4.0 CL 01/11/2024 106 CO2 TOTAL 01/11/2024 25 AGAP 01/11/2024 6 BUN 01/11/2024 12 GLUCOSE 01/11/2024 80 CREATININE 01/11/2024 0.77 TOTAL BILI 01/11/2024 0.8 CALCIUM 01/11/2024 9.3 T PROTEIN 01/11/2024 7.7 ALBUMIN 01/11/2024 4.4 ALK PHOS 01/11/2024 78 ALTv 01/11/2024 18 AST(SGOT) 01/11/2024 50 (H) eGFR 01/11/2024 99.5 A. ENDOMETRIUM, BIOPSY: - SECRETORY ENDOMETRIUM Radiology Narrative & Impression HISTORY: AUB. TECHNIQUE: Both transabdominal and transvaginal pelvic ultrasound studies were completed by the technologist. FINDINGS: Comparison has been made with previous ultrasound study of 11/13/2022. Uterus is of normal size and shape, measures approximately 8.5 x 5.0 x 6.3 cm in size with homogeneous echo texture of the myometrium. Small nabothian cysts are seen in the cervix, the largest is 15 mm . Largest nabothian cyst contains thick mildly echogenic lesion of secretions. Endometrial echo complex is 15 mm (video image #47 out of 170 of long section). No free fluid in the cul-de-sac. Right ovary is 3.6 x 2.6 x 1.9 cm ( 9.16 ml) and left ovary is 2.8 x 2.1 x 1.7 cm ( 5.08 ml). CONCLUSIONS: Thickened endometrial stripe with heterogeneous echogenicity, suggestive of cystic endometrial hyperplasia. Allergies Jose has No Known Allergies. Medications Jose has a current medication list which includes the following prescription(s): ascorbic acid, ferrous sulfate, lactobacillus acidophilus, mv-min/iron/folic/calcium/vitk, and rybelsus. Review of Systems Constitutional: Negative. Respiratory: Negative. Cardiovascular: Negative. Gastrointestinal: Negative. Genitourinary: Positive for menstrual problem. BP (!) 141/89 (BP Location: Left arm, Patient Position: Sitting, BP CUFF SIZE: Adult Large) | Pulse 63 | Temp 36.7 ?C (98 ?F) (Oral) | Resp 18 | Ht 5' 2" (1.575 m) | Wt 244 lb 3.2 oz (110.8 kg) | BMI 44.66 kg/m? Pregravid BMI: Could not be calculated Physical Exam Vitals reviewed. Constitutional: She appears well-developed and well-nourished. Her body habitus is obese. Cardiovascular: Regular rate and rhythm. No murmur auscultated. Pulmonary/Chest: Breath sounds clear to auscultation. Normal inspiratory effort. Abdominal: Abdomen is soft. No mass palpated. There is no rigidity and no guarding. Neuro/Psychiatric: She has a normal mood and affect. Skin: Skin normal. Assessment/Plan Abnormal uterine bleeding (AUB) (primary encounter diagnosis) Comment: Scheduled for a TVH/cystoscopy Plan: Basic Metabolic Panel (NA, K, CL, CO2, GLUCOSE, BUN, CREATININE, CA), Cbc with Diff, Type and Screen -, Test, Serum --Reviewed with patient risks of bowel/bladder/nerve and vessel injury. Pt is ok with blood transfusion if medically necessary. Reviewed preop lab orders and timing. NPO after midnight. All questions were answered and informed consent was signed. Healthcare System Notes Date/Time Note Provider Source 2024-12-08 10:49:20 Brazen Careerist[employer] message sent. BERTHA WALLER RN 12/08/2024 10:49 AM Bertha Waller RN [facility] 2024-12-08 08:52:59 Copied from [facility] #[id number]. 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 Abida Galeas [facility]2025-07-28 00:00:00 Pete [facility]2025-01-06 13:22:15 Images from the original note were not included. Leti Alvarez MD You4 hours ago (9:08 AM) Likely related to stitches dissolving with send medication to help with odor. Flagyl. BERTHA WALLER RN 04/04/2024 1:22 PM [facility] Bertha Waller Critical access [id number] 08:15:00 Addended by: LETI ALVAREZ on: 04/04/2024 09:10 AM Modules accepted: [facility]2024-11-25 12:01:32 Duplicate. Edgar Juarez RN 02/22/2024 12:01 PM [facility] Edgar Juarez Critical access [id number] 11:10:00 TOTAL VAGINAL HYSTERECTOMY PROCEDURE NOTE Preoperative diagnosis: abnormal uterine bleeding Postoperative diagnosis: abnormal uterine bleeding Date: 02/22/2024 Surgeon: Rosie Vickers MD Faculty Surgeon: Leti Alvarez MD Anesthesia: General Specimens: uterus Findings: normal appearing 6-8 wk size uterus, on cystoscopy at end of case: bilateral urine efflux, bladder noted to be intact without defect Indication: This is a patient with a history of AUB who has completed childbearing, so she was brought to the OR for total vaginal hysterectomy. The patient understood risks, benefits and alternatives to the procedure, and informed consent was signed. All questions were answered prior to the procedure. Narrative: After obtaining informed consent, patient was taken to the OR for above planned procedures. 2g Ancef and 500 mg flagyl administered at the start of the case. She was prepped and draped in the normal sterile fashion in the dorsal lithotomy position using Yellow Fin stirrups. Vaginal wall retractors were used to push the bladder cephalad and vaginal wall laterally and a weighted speculum placed posteriorly. The cervix was grasped with two Leahey clamps. The posterior vaginal wall was pushed away from the cervix and a posterior colpotomy was made with scissors and a long weighted speculum was placed into the peritoneal cavity. The uterosacral ligaments on both sides was cross clamped with a Gissell clamp, transected and suture ligated with a Gissell vicryl suture. Next the cardinal ligaments complex were clamped, transected and suture ligated with 2-0 vicryl. (A dilute solution of Pitressin was injected anteriorly around the cervix). A circumferential incision was made on the cervix with cautery. Further dissection was performed anteriorly using both sharp and blunt dissection until anterior colpotomy achieved. The broad ligaments were then serially clamped, transected and suture ligated until the uteroovarian pedicles were visualized. The bilateral uteroovarian pedicles were clamped, transected and suture ligated. The uterus and cervix were delivered, and handed off to pathology. The pedicle lines were inspected and hemostasis was confirmed. A moctezuma catheter was inserted to drain the bladder and the vaginal cuff was then closed in continuous fashion with care given to incorporate the vaginal mucosa, underlying fascia, and peritoneal edge on each anterior and posterior bite. The previously tagged uterosacral tissue was also incorporated. After closure of the vagina, adequate hemostasis was reconfirmed. A cystoscopy was then performed at this point, noting a completely intact bladder with brisk bilateral ureteral jets. All lap and instrument counts were complete x 2. The procedure considered terminate at this time. Condition of Patient after Surgery: Good Estimated Blood Loss: 50 cc Urine Output: 150 cc Complications: None Rosie Vickers MD GRINDER Associated attestation - Leti Alvarez MD - 02/22/2024 1:49 PM DISK GRINDER I was present for and supervised the entire procedure(s). Leti [facility]varez [id number] Images from the original note were not included. Venipuncture collection performed by clean technique on the right anticubitus. Total of 1 attempts were made. Slight pressure and a bandage/dressing were applied to the site(s). The patient experienced no complications. The following specimens were processed according to instructions and sent to [facility] laboratories per lab order on 02/20/2024 : LT BLUE SST 2 RED LAV 2 PPT DK GREEN (LiHep) DK GREEN (SodH) GRANT DK BLUE (K2) DK BLUE (S) ACD Blood Culture NIPT/NTD Pt arm banded: [id number] Angella Mcadams 02/20/2024 10:33 AM Healthcare System2024-11-19 10:57:00 Images from the original note were not included. Your procedure is at [facility] on 02/22/24. The address is [address] [place] [address], [id number]. [facility] nursing staff will call you the workday before your procedure to let you know what time to arrive.On the day of your procedure, please go inside that door and check in at the desk. Please note: You may not travel home alone and that includes in a taxi or by bus. We must speak to your Responsible Adult (who will be picking you up) the morning of your procedure, before the start of your procedure. This person must be an adult over the age of 18 years of age. Do not eat any solid food after midnight the night before surgery. You may have sips of clear liquids such as water, gatorade, and sprite up until two hours before your scheduled procedure. You may take your medications with a sip of water as directed by physician. Anticoagulants will be per physician guidance. Medication Note(s)/Instructions: The patient was instructed to hold Vitamins, supplements and Rybelsus the morning of the procedure. The patient was educated on medication procedure. Teach-back method repeated and confirmed. There are orders for Lab work. The patient is aware it needs to be done prior to procedure. The patient has an appointment with Dr. Alvarez on Thursday. Understanding was verbalized, with no questions or concerns at this time. The patient was informed that they would receive a call between 12-3pm the day before the procedure for arrival time. COVID SCREENING NOTE: Denies COVID OR FLU-LIKE symptoms at this time, no testing required. GRINDER Aixa Woods Critical access [id number] 10:27:24 Name and verified, pt informed her [facility] paperwork was completed and faxed to number provided. 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 Pt verbalized understanding. Bernadette Kapadia RN 01/20/2024 10:28 AM Bernadette Kapadia [place] [id number] 10:37:52 Received [place] paper work, will notify pt when forms are completed and ready for bean picker machine operator. Bernadette Kapadia RN 01/19/2024 10:38 AM Bernadette Kapadia Critical access [id number] 10:28:42 Pt dropped off FMLA paperwork for completion, please fax to [phone]. Hernando DanielsBrian Ville [id number] 13:19:47 Pt given printed and verbal discharge [...] with steady gait, in no apparent distress. [id number] 13:14:48 Name and verified, pt states this [...] Kapadia RN 01/11/2024 1:17 PM Bernadette Kapadia Critical access [id number] 10:19:40 Pt arrived ambulatory with complaints of vaginal bleeding. Pt had endometrial biopsy last Thursday, with spotting that cleared up. This morning patient reports heavy bleeding with clots and back/pelvic pain. Alina Joseph Critical access [id number] 09:42:38 Pt 43 yr old female called states she is experiencing heavy bleeding and clotting States she's been bleeding off and on since . Pt says she had EMBX last Thursday. Asking if bleeding is normal. Pt requesting recommendation. Would like a call back to discuss. Carmen MitchellBrian [place] [id number] 08:30:00 Reviewed US results and abnormal. Pt will need an endometrial biopsy. Pt can come in earlier if available to discuss US and have procedure done. [place] [id number] 09:30:00 Images from the original note were not included. Venipuncture collection performed by clean technique on the right anticubitus. Total of 1 attempts were made. Slight pressure and a bandage/dressing were applied to the site(s). The patient experienced no complications. The following specimens were processed according to instructions and sent to [facility] laboratories per lab order on 12/22/2023: LT BLUE SST 1 RED LAV 1 PPT DK GREEN (LiHep) DK GREEN (SodH) GRANT DK BLUE (K2) DK BLUE (S) ACD Blood Culture NIPT/NTD [facility]2024-09-06 10:30:00 Reviewed results, pt needs an wellness check for 2023. [place] [id number] 08:30:00 Recommendation: Short interval follow-up ultrasound 6 months - Right Ordered Healthcare System
[2025-01-13 07:11] LABS: Absolute Lymphocytes (CBC) 1.5 K/uL (0.7-4.9); Hematocrit 38.6 % (36.0-45.0); Hemoglobin 13.0 g/dL (12.0-15.0); MCH 29.6 pg (27.0-35.0); MCHC 33.7 g/dL (32.0-36.0); MCV 87.8 fL (80-100); MPV 8.2 fL (7.6-11.3); Nucleated RBC Absolute Count 0.0 (0-0); Nucleated Red Blood Cells % 0.0 % (0-0); RBC Red Blood Cell Count 4.40 M/uL (3.86-4.86); White Blood Count 6.60 thou/uL (4.3-10.9)
[2025-01-13 07:36] LABS: Anion Gap 6.0 mEq/L (5.0-15.0); BUN Blood Urea Nitrogen 14 mg/dL (7-18); Glucose Level 79 mg/dL (74-106); NT PRO-BNP 78 pg/mL (<125); Potassium 4.0 mEq/L (3.5-5.1)
[2025-01-13 07:45] LABS: Troponin High Sensitivity < 3.0 pg/mL (<58.9)
--- NOTE | 2025-01-13 07:45 | RAD REPORT ---
Procedure: Chest Single View HISTORY: Shortness of breath COMPARISON: 2020 FINDINGS: The lungs appear clear of acute infiltrate. No significant pleural effusion noted. The heart is normal size. IMPRESSION: No acute abnormality is displayed.
--- NOTE | 2025-01-13 08:04 | ER ---
Nurse's Notes [facility] Name: Asiya Nye Age: 44 yrs Sex: Female : 1980 Arrival Date: 01/13/2025 Time: 06:22 Bed 6 Private MD: Diagnosis: Angina pectoris, unspecified;Unstable angina Presentation: 01/13 06:33 Chief complaint: Patient states: started having chest tightness and SOB about 30 vc1 minutes ago. I took a couple of deep breaths and it went away but then it came back. Coronavirus screen: Client denies travel out of the [place] in the last 14 days. At this time, the client does not indicate any symptoms associated with coronavirus-19. Ebola Screen: Patient negative for fever greater than or equal to 101.5 degrees Fahrenheit, and additional compatible Ebola Virus Disease symptoms Patient denies exposure to infectious person. Patient denies travel to an Ebola-affected area in the 21 days before illness onset. No symptoms or risks identified at this time. Initial Sepsis Screen: Does the patient meet any 2 criteria? No. Patient's initial sepsis screen is negative. Does the patient have a suspected source of infection? No. Patient's initial sepsis screen is negative. Risk Assessment: Do you want to hurt yourself or someone else? Patient reports no desire to harm self or others. Onset of symptoms was January 13, 2025 at 06:05. 06:33 Method Of Arrival: Ambulatory vc1 06:33 Acuity: ESTEBAN 3 vc1 Triage Assessment: 06:33 General: Appears in no apparent distress. uncomfortable, obese, well groomed, Behavior vc1 is calm, cooperative, appropriate for age. Pain: Complains of pain in chest Pain radiates to thoracic area. Pain: Quality of pain is described as "tightness". EENT: No deficits noted. No signs and/or symptoms were reported regarding the EENT system. Neuro: Level of Consciousness is awake, alert, obeys commands, Oriented to person, place, time, situation, Appropriate for age. Cardiovascular: Reports chest pain, shortness of breath, Capillary refill < 3 seconds Patient's skin is warm and dry. Respiratory: Reports shortness of breath Airway is patent Respiratory effort is even, unlabored, Respiratory pattern is regular, symmetrical. GI: No deficits noted. No signs and/or symptoms were reported involving the gastrointestinal system. : No deficits noted. No signs and/or symptoms were reported regarding the genitourinary system. Derm: Skin is intact, is healthy with good turgor, Skin is dry, Skin is normal, Skin temperature is warm. Musculoskeletal: Circulation, motion, and sensation intact. Range of motion: intact in all extremities. 06:37 General: Appears in no apparent distress. Behavior is calm, cooperative. Pain: kd3 Complains of pain in chest. Neuro: Level of Consciousness is awake, alert, obeys commands, Oriented to person, place, time, situation. Cardiovascular: Capillary refill < 3 seconds Patient's skin is warm and dry. Respiratory: Airway is patent Trachea midline Respiratory effort is even, unlabored, Respiratory pattern is regular, symmetrical. 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 Flu vaccine is not up to date. - Infectious Disease History:: Denies. - Social history:: Smoking status: Patient reports the use of cigarette tobacco products, 5 cigs/day. Screenin:37 [facility] ED Fall Risk Assessment (Adult) History of falling in the last 3 months, kd3 including since admission No falls in past 3 months (0 pts) Confusion or Disorientation No (0 pts) Intoxicated or Sedated No (0 pts) Impaired Gait No (0 pts) Mobility Assist Device Used No (0 pt) Altered Elimination No (0 pt) Score/Fall Risk Level 0 - 2 = Low Risk Maintained a safe environment. Abuse screen: Denies threats or abuse. Denies injuries from another. Nutritional screening: No deficits noted. Tuberculosis screening: No symptoms or risk factors identified. Assessment: 06:38 General: Appears in no apparent distress. Behavior is calm, cooperative. Neuro: Level kd3 of Consciousness is awake, alert, obeys commands, Oriented to person, place, time, situation. Cardiovascular: Capillary refill < 3 seconds Patient's skin is warm and dry. Respiratory: Airway is patent Trachea midline Respiratory effort is even, unlabored, Respiratory pattern is regular, symmetrical. 07:15 Reassessment: Patient and/or family updated on plan of care and expected duration. Pain ar8 level reassessed. Patient is alert, oriented x 3, equal unlabored respirations, skin warm/dry/pink. Patient denies pain at this time. Vital Signs: 06:33 BP 135 / 88; Pulse 72; Resp 15; Temp 98.4(O); Pulse Ox 99% ; Weight 104.33 kg; Height 5 vc1 ft. 2 in. ; 07:15 BP 127 / 79; Pulse 67; Resp 18; Pulse Ox 97% on R/A; Pain 0/10; ar8 08:15 BP 134 / 92; Pulse 69; Resp 16 S; Pulse Ox 100% on R/A; ar8 09:00 BP 128 / 90; Pulse 69; Resp 15; Pulse Ox 100% on R/A; ar8 09:45 BP 133 / 85; Pulse 66; Resp 20 S; Pulse Ox 99% on R/A; ar8 06:33 Body Mass Index 42.07 (104.33 kg, 157.48 cm) vc1 07:15 Pain Scale: Adult ar8 ED Course: 06:33 Patient arrived in ED. vc1 06:35 Triage completed. vc1 06:35 Sundeep Flor DO is Attending Physician. tt7 06:36 Hannah Watkins, RN is Primary Nurse. kd3 06:36 No provider procedures requiring assistance completed. Initial lab(s) drawn, by al, EKG kd3 done, by ED staff, reviewed by Sundeep Flor DO. Inserted saline lock: 20 gauge in right antecubital area, using aseptic technique. Blood collected. Flushed with 10 mL NS. 06:37 Patient has correct armband on for positive identification. Provided Education on: kd3 chest pain wok up . Client placed on continuous cardiac and pulse oximetry monitoring. NIBP monitoring applied. conveyor monitor on. 06:38 Arm band placed on right wrist. vc1 06:53 Basic Metabolic Panel Sent. kd3 06:53 CBC with Diff Sent. kd3 06:53 NT PRO-BNP Sent. kd3 06:53 Troponin HS Sent. kd3 07:13 XRAY Chest (1 view) In Process Unspecified. EDMS 07:13 Attending Physician role handed off by Sundeep Flor DO [facility] 07:13 Tyler Walsh MD is Attending Physician. [facility] 08:03 Coreen Mcarthur MD is Hospitalizing Provider. [facility] 08:17 Primary Nurse role handed off by Hannah Watkins RN 08:17 Pratik Daniels, RN is Primary Nurse. ar8 10:21 Patient admitted, IV remains in place. ar8 Administered Medications: 08:38 Drug: Aspirin PO Chewable Tablet 324 mg PO once; 81 mg tablets x 4 Route: PO; ar8 10:23 Follow up: Response: No adverse reaction ar8 08:41 Drug: Metoprolol PO 25 mg PO once Route: PO; ar8 10:22 Follow up: Response: No adverse reaction; Blood pressure is lowered ar8 08:42 Drug: Famotidine IVP 20 mg IVP once; dilute with 10 mL 0.9% NaCl; give over 2 minutes ar8 Route: IVP; Site: right antecubital; 10:22 Follow up: Response: No adverse reaction ar8 08:46 Drug: Enoxaparin Sub-Q 100 mg Sub-Q once Route: Sub-Q; Site: right lower abdomen; ar8 10:22 Follow up: Response: No adverse reaction ar8 Medication: 06:38 VIS not applicable for this client. kd3 Outcome: 08:04 Decision to Hospitalize by Provider. jonathan 10:21 Admitted to Med/surg accompanied by tech, via wheelchair, room 225, ar8 10:21 Condition: stable 10:21 Discharge instructions given to NA 10:23 Patient left the ED. ar8 Signatures: Dispatcher [employer] [facility] Tyler Walsh MD MD cha Botello, Elizabeth Hannah Watkins, RN RN kd3 Cristy Patiño RN RN vc1 Pratik Daniels, MARIA ELENA RN ar8 Sundeep Flor DO DO tt7 Corrections: (The following items were deleted from the chart) 06:36 06:33 BP 135 / 88; Pulse 15bpm; Resp 72bpm; Pulse Ox 99%; Temp 98.4F Oral; 104.33 kg; vc1 Height 5 ft. 2 in.; BMI: 42.0; vc1
--- NOTE | 2025-01-13 08:04 | EDPHYS ---
Physician Documentation [facility] Name: Asiya Nye Age: 44 yrs Sex: Female : 1980 Arrival Date: 01/13/2025 Time: 06:22 Bed 6 Private MD: ED Physician Tyler Walsh HPI: 01/13 07:02 This 44 yrs old Female presents to ER via Ambulatory with complaints of Chest tt7 Tightness. 07:02 Symptoms started about 1 hour prior to arrival, pain is described as a tight sensation tt7 that radiates to her right side of his back, no associated fever, cough, or shortness of breath. No significant past medical history. No nausea or abdominal pain. Pain resolved on its own but then returned so she came to the emergency department. Currently described as mild in severity. 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 Flu vaccine is not up to date. - Infectious Disease History:: Denies. - Social history:: Smoking status: Patient reports the use of cigarette tobacco products, 5 cigs/day. ROS: 07:03 Constitutional: negative for fever. Respiratory: negative for shortness of breath. tt7 Abdomen/GI: negative for abdominal pain, nausea, vomiting, diarrhea. Back: Negative for injury and pain, MS/Extremity: negative for injury and deformity. Skin: negative for rash. Neuro: negative for focal weakness. 07:03 Cardiovascular: Positive for chest pain, Exam: 07:03 Constitutional: vital signs reviewed, well appearing. Head/Face: normocephalic, tt7 atraumatic. Eyes: no conjunctival injection, anicteric sclerae. ENT: mucus membranes moist. Neck: trachea midline, no JVD, no meningismus. Chest/axilla: normal chest wall appearance and motion, nontender, no crepitus. Cardiovascular: regular rate and rhythm, no murmurs, no rubs, no lower extremity edema. Respiratory: normal respiratory effort, no accessory muscle use, lungs CTAB. Abdomen/GI: soft, nondistended, nontender, no guarding or rebound, negative Gu's sign, no McBurney point tenderness. Back: normal ROM. Skin: warm, dry, intact, normal turgor, normal color, no rash. MS/ Extremity: normal ROM of extremities, no gross deformities. Neuro: alert and oriented with appropriate mental status, normal speech, follows commands, no focal neurologic deficits. Psych: appropriate mood and affect. Vital Signs: 06:33 BP 135 / 88; Pulse 72; Resp 15; Temp 98.4(O); Pulse Ox 99% ; Weight 104.33 kg; Height 5 vc1 ft. 2 in. ; 07:15 BP 127 / 79; Pulse 67; Resp 18; Pulse Ox 97% on R/A; Pain 0/10; ar8 08:15 BP 134 / 92; Pulse 69; Resp 16 S; Pulse Ox 100% on R/A; ar8 09:00 BP 128 / 90; Pulse 69; Resp 15; Pulse Ox 100% on R/A; ar8 09:45 BP 133 / 85; Pulse 66; Resp 20 S; Pulse Ox 99% on R/A; ar8 06:33 Body Mass Index 42.07 (104.33 kg, 157.48 cm) vc1 07:15 Pain Scale: Adult ar8 MDM: 06:35 Medical Screening Exam initiated tt7 06:49 Differential diagnosis: abnormal EKG, acute myocardial infarction, anxiety, chest wall tt7 pain, esophagitis, gastritis, gastroesophageal reflux disease (GERD), peptic ulcer disease, pneumonia, pneumothorax, pulmonary embolus. Data reviewed: vital signs, nurses notes, lab test result(s), EKG. ED course: I independently interpreted the patient's EKG performed on 01/13/2025 at 0630. On my interpretation, EKG demonstrates normal sinus rhythm, ventricular rate 70 bpm, normal axis, normal QRS interval, normal ST segments, no STEMI. 07:03 ED course: Standard cardiac evaluation ordered, vital signs are stable, patient tt7 well-appearing, physical exam reassuring, no cardiac risk factors, very low suspicion for ACS, EKG is nonischemic and reassuring, patient care signed out to Dr. Walsh at shift change at 0700 pending results of laboratory studies and reassessment. 01/13 06:46 Order name: Basic Metabolic Panel; Complete Time: 07:55 tt7 01/13 06:46 Order name: CBC with Diff; Complete Time: 07:55 tt7 01/13 06:46 Order name: NT PRO-BNP; Complete Time: 07:55 tt7 01/13 06:46 Order name: Troponin HS; Complete Time: 07:55 tt7 01/13 08:03 Order name: Lipase jonathan 01/13 08:03 Order name: Troponin High Sensitivity [facility] 01/13 08:04 Order name: Lipid Profile [facility] 01/13 08:51 Order name: Basic Metabolic Panel EDMS 01/13 08:51 Order name: Basic Metabolic Panel EDMS 01/13 08:51 Order name: Basic Metabolic Panel EDMS 01/13 08:51 Order name: CBC with Automated Diff EDMS 01/13 08:51 Order name: CBC with Automated Diff EDMS 01/13 08:51 Order name: CBC with Automated Diff EDMS 01/13 08:51 Order name: Troponin High Sensitivity EDMS 01/13 08:51 Order name: Troponin High Sensitivity EDMS 01/13 08:51 Order name: Troponin High Sensitivity EDMS 01/13 06:46 Order name: XRAY Chest (1 view); Complete Time: 07:55 tt7 01/13 08:03 Order name: Echo w/ Doppler [facility] 01/13 06:46 Order name: Cardiac monitoring; Complete Time: 06:53 01/13 06:46 Order name: EKG - Nurse/Tech; Complete Time: 06:53 01/13 06:46 Order name: IV Saline Lock; Complete Time: 06:53 01/13 06:46 Order name: Labs collected and sent; Complete Time: 06:53 01/13 06:46 Order name: O2 Per Protocol; Complete Time: 06:53 tt01/13 06:46 Order name: O2 Sat Monitoring; Complete Time: 06:53 tt7 Administered Medications: 08:38 Drug: Aspirin PO Chewable Tablet 324 mg PO once; 81 mg tablets x 4 Route: PO; ar8 10:23 Follow up: Response: No adverse reaction ar8 08:41 Drug: Metoprolol PO 25 mg PO once Route: PO; ar8 10:22 Follow up: Response: No adverse reaction; Blood pressure is lowered ar8 08:42 Drug: Famotidine IVP 20 mg IVP once; dilute with 10 mL 0.9% NaCl; give over 2 minutes ar8 Route: IVP; Site: right antecubital; 10:22 Follow up: Response: No adverse reaction ar8 08:46 Drug: Enoxaparin Sub-Q 100 mg Sub-Q once Route: Sub-Q; Site: right lower abdomen; ar8 10:22 Follow up: Response: No adverse reaction ar8 Disposition Summary: 01/13/25 08:04 Hospitalization Ordered Notes: Hospitalization Status: Observation jonathan Provider: Coreen Mcarthur cha Location: Telemetry/MedSurg (observation) jonathan Condition: Stable jonathan Problem: new jonathan Symptoms: have improved jonathan Bed/Room Type: Standard [facility] Room Assignment: 225(01/13/25 09:45) eb Diagnosis - Angina pectoris, unspecified jonathan - Unstable angina jonathan Forms: - Medication Reconciliation Form jonathan - SBAR form jonathan - Leadership Thank You Letter jonathan Signatures: Dispatcher [employer] EDTyler Olsen MD MD cha Botello, Elizabeth eb Calcote, Vanessa RN RN vc1 Pratik Daniels RN RN ar8 Sundeep Flor DO DO tt7 Corrections: (The following items were deleted from the chart) 09:45 08:04 jonathan eb
[2025-01-13] MEDS ORDERED: METOPROLOL TAR 25 MG TAB ONE (08:25)
[2025-01-13] MEDS ORDERED: FAMOTIDINE 20 MG/2 ML VIAL IV ONE (08:26)
[2025-01-13] MEDS ORDERED: ASPIRIN 81 MG CHEWABLE TABLET ONE (08:26)
[2025-01-13] MEDS ORDERED: ENOXAPARIN 100 MG/ML SYR SQ ONE (08:26)
[2025-01-13] MEDS ORDERED: ACETAMINOPHEN 325 MG TABLET PO PRN (08:47)
[2025-01-13] MEDS: ASPIRIN EC 81 MG TAB PO SCH (09:00)
--- NOTE | 2025-01-13 10:49 | P.HP ---
Certification for Inpatient Patient admitted to: Observation With expected LOS: <2 Midnights Patient will require the following post-hospital care: None Practitioner: I am a practitioner with admitting privileges, knowledge of patient current condition, hospital course, and medical plan of care. Services: Services provided to patient in accordance with Admission requirements found in Title 42 Section 412.3 of the Code of Federal Regulations Patient History Date of Service: 01/13/25 Reason for admission: Chest pain History of Present Illness: 44-year-old female with no significant past medical history presents emergency department chief complaint of chest pain/pressure. She reports an episode earlier this morning which she describes as chest pressure radiating to her back with associated shortness of breath and diaphoresis. She reports that the episode lasted a few minutes and went away but had another episode shortly after that was less intense. She denies similar episodes in the past, has never seen a director veterinary or had a cardiac workup of any kind. Patient was evaluated in the emergency department her initial high sensitive troponin was normal at less than 3, EKG without STEMI criteria present. Patient is chest pain-free at this time. Chest x-ray was negative for acute findings, ED provider wishes to admit under observation for ACS rule out. Allergies No Known Drug Allergies Allergy (Unverified 08/08/14 15:33) Unknown Home Medications: Citalopram Hydrobromide [Celexa] 20 mg PO DAILY 06/15/14 Amoxicillin 500 mg PO TID 07/04/14 Ciprofloxacin HCl [Cipro] 500 mg PO BID 07/04/14 - Past Medical/Surgical History -: Cholecystectomy -: Hysterectomy - Family History Mother Notes: Patient had an aunt who at 49 from heart attack and great grandfather had a CABG - Social History Smoking Status: Current every day smoker Alcohol use: Yes CD- Drugs: No Caffeine use: Yes Place of Residence: Home Review of Systems 10-point ROS is otherwise unremarkable Respiratory: Shortness of Breath Cardiovascular: Chest Pain, Other (Diaphoresis) Physical Examination - Physical Exam General: Alert, In no apparent distress, Oriented x3 HEENT: Atraumatic, PERRLA, EOMI Neck: Supple, 2+ carotid pulse no bruit, No LAD Respiratory: Clear to auscultation bilaterally, Normal air movement Cardiovascular: Regular rate/rhythm, Normal S1 S2 Gastrointestinal: Normal bowel sounds, No tenderness Musculoskeletal: No tenderness Integumentary: No rashes Neurological: Normal gait, Normal speech, Normal strength at 5/5 x4 extr, Normal affect - Studies Laboratory Data (last 24 hrs) 01/13/25 01/13/25 06:51 06:51 WBC 6.60 Hgb 13.0 Hct 38.6 Plt Count 288 Sodium 139 Potassium 4.0 BUN 14 Creatinine 0.74 Glucose 79 Assessment and Plan - Plan Assessment: Chest pain rule out ACS Plan: Chest pain rule out ACS Initial high sensitive troponin normal Trend troponin and monitor on telemetry Given aspirin, Lovenox in ED Plan for cardiology consult Chest pain-free at this time DVT PPX: Lovenox Code status: Full code Discharge Plan: Home Plan to discharge in: 24 Hours - Advance Directives Does patient have a Living Will: No Does patient have a Durable POA for Healthcare: No - Code Status/Comfort Care Code Status Assessed: Yes (Full code) Critical Care: No Time Spent Managing Pts Care (In Minutes): 65
[2025-01-13 10:53] VITALS: BMI 43.0
[2025-01-13 11:49] VITALS: O2SAT 99
[2025-01-13 12:30] LABS: HDL Cholesterol 41 mg/dL (40-60); LDL Cholesterol, Calculated 79 mg/dL (<130); LDL Cholesterol,Calc NonReport 79; Lipase 34 U/L (13-75); Troponin High Sensitivity < 3.0 (<58.9)
--- NOTE | 2025-01-13 13:22 | P.CNS ---
Date of Consult: 01/13/25 Chief Complaint: Chest pain History of Present Illness: Patient with PMH of HTN not on medications, tobacco use, presented with chest pain, sudden onset, radiated to her back associated with diaphoresis, lasted few minutes and then happened again at later time, denies palpitations, no syncope, no breathing problems. Allergies No Known Drug Allergies Allergy (Unverified 08/08/14 15:33) Unknown Home medications list reviewed: Yes Home Medications: Tirzepatide [Mounjaro] 7.5 mg SQ EVERY 7TH DAY 01/13/25 - Past Medical/Surgical History -: Cholecystectomy -: Hysterectomy - Family History Mother Notes: Patient had an aunt who at 49 from heart attack and great grandfather had a CABG - Social History Smoking Status: Current every day smoker Alcohol use: Yes CD- Drugs: No Caffeine use: Yes Place of Residence: Home Review of Systems 10-point ROS is otherwise unremarkable Physical Examination Temp Pulse Resp BP Pulse Ox 98.1 F 68 16 138/82 97 01/13/25 12:00 01/13/25 12:00 01/13/25 12:00 01/13/25 12:00 01/13/25 12:00 General: Alert, In no apparent distress HEENT: Atraumatic, PERRLA, Mucous membr. moist/pink, EOMI, Sclerae nonicteric Neck: Supple, 2+ carotid pulse no bruit, No LAD, Without JVD or thyroid abnormality Respiratory: Clear to auscultation bilaterally, Normal air movement Cardiovascular: Regular rate/rhythm, Normal S1 S2 Gastrointestinal: Normal bowel sounds, No tenderness Musculoskeletal: No tenderness Integumentary: No rashes Neurological: Normal gait, Normal speech, Normal tone, Normal affect Lymphatics: No axilla or inguinal lymphadenopathy Laboratory Data (last 24 hrs) 01/13/25 01/13/25 06:51 06:51 WBC 6.60 Hgb 13.0 Hct 38.6 Plt Count 288 Sodium 139 Potassium 4.0 BUN 14 Creatinine 0.74 Glucose 79 - Problems (1) Chest pain Current Visit: Yes Status: Acute Plan: atypical, negative enzymes x2, EKG no significant ST-T wave changes. check one more troponin, if negative then patient can be discharged and follow up with cardiology for further work up. continue ASA 81 mg daily (2) Tobacco use Current Visit: Yes Status: Acute Plan: advised about cessation. (3) HTN (hypertension) Current Visit: Yes Status: Acute Plan: BP is normal off medications, continue to monitor.
--- NOTE | 2025-01-13 16:08 | P.DS ---
Admission Date: 01/13/25 Discharge Date: 01/13/25 Reason for Admission: Chest pain Brief History of Present Illness: 44-year-old female with no significant past medical history presents emergency department chief complaint of chest pain/pressure. She reports an episode earlier this morning which she describes as chest pressure radiating to her back with associated shortness of breath and diaphoresis. She reports that the episode lasted a few minutes and went away but had another episode shortly after that was less intense. She denies similar episodes in the past, has never seen a veterinary science teacher or had a cardiac workup of any kind. Patient was evaluated in the emergency department her initial high sensitive troponin was normal at less than 3, EKG without STEMI criteria present. Patient is chest pain-free at this time. Chest x-ray was negative for acute findings, ED provider wishes to admit under observation for ACS rule out. Hospital Course: Patient was admitted to hospital for chest pain. Troponins were negative x 3 and she is seen by cardiology recommends further evaluation outpatient. Patient stable for discharge and outpatient follow-up with cardiology next week. <Michael Trejo - Last Filed: 01/13/25 16:07> Admission Date: 01/13/25 Discharge Date: 01/15/25 Hospital Course: Discharge diagnose Atypical chest pain Morbid obesity <temo nicholson - Last Filed: 01/15/25 17:08> Disposition: ROUTINE DISCHARGE Discharge Condition: GOOD Vital Signs/Physical Exam: Temp Pulse Resp BP Pulse Ox 98.1 F 68 16 138/82 97 01/13/25 12:00 01/13/25 12:00 01/13/25 12:00 01/13/25 12:00 01/13/25 12:00 General: Alert, In no apparent distress, Oriented x3 HEENT: Atraumatic, PERRLA Neck: Supple, JVD not distended Respiratory: Clear to auscultation bilaterally, Normal air movement Cardiovascular: Regular rate/rhythm, Normal S1 S2 Gastrointestinal: Normal bowel sounds, No tenderness Musculoskeletal: No tenderness Integumentary: No rashes Neurological: Normal speech, Normal affect Laboratory Data at Discharge: WBC 6.60 thou/uL (4.3-10.9) 01/13/25 06:51 Hgb 13.0 g/dL (12.0-15.0) 01/13/25 06:51 Hct 38.6 % (36.0-45.0) 01/13/25 06:51 Plt Count 288 thou/uL (152-406) 01/13/25 06:51 Sodium 139 mEq/L (136-145) 01/13/25 06:51 Potassium 4.0 mEq/L (3.5-5.1) 01/13/25 06:51 BUN 14 mg/dL (7-18) 01/13/25 06:51 Creatinine 0.74 mg/dL (0.55-1.02) 01/13/25 06:51 Glucose 79 mg/dL (74-106) 01/13/25 06:51 Triglycerides 86 mg/dL (<150) 01/13/25 11:35 Cholesterol 137 mg/dL (<200) 01/13/25 11:35 HDL Cholesterol 41 mg/dL (40-60) 01/13/25 11:35 Cholesterol/HDL Ratio 3.34 01/13/25 11:35 Lipase 34 U/L (13-75) 01/13/25 11:35 <Michael Trejo - Last Filed: 01/13/25 16:07> Vital Signs/Physical Exam: Temp Pulse Resp BP Pulse Ox 98.0 F 70 16 124/72 97 01/13/25 16:00 01/13/25 16:00 01/13/25 16:00 01/13/25 16:00 01/13/25 16:00 Laboratory Data at Discharge: WBC 6.60 thou/uL (4.3-10.9) 01/13/25 06:51 Hgb 13.0 g/dL (12.0-15.0) 01/13/25 06:51 Hct 38.6 % (36.0-45.0) 01/13/25 06:51 Plt Count 288 thou/uL (152-406) 01/13/25 06:51 Sodium 139 mEq/L (136-145) 01/13/25 06:51 Potassium 4.0 mEq/L (3.5-5.1) 01/13/25 06:51 BUN 14 mg/dL (7-18) 01/13/25 06:51 Creatinine 0.74 mg/dL (0.55-1.02) 01/13/25 06:51 Glucose 79 mg/dL (74-106) 01/13/25 06:51 Triglycerides 86 mg/dL (<150) 01/13/25 11:35 Cholesterol 137 mg/dL (<200) 01/13/25 11:35 HDL Cholesterol 41 mg/dL (40-60) 01/13/25 11:35 Cholesterol/HDL Ratio 3.34 01/13/25 11:35 Lipase 34 U/L (13-75) 01/13/25 11:35 <temo nicholson - Last Filed: 01/15/25 17:08> Diet: Regular Activity: Ad irene Time spent managing pt's care (in minutes): 35 <Michael Trejo - Last Filed: 01/13/25 16:07> <temo nicholson - Last Filed: 01/15/25 17:08> Home Medications: Tirzepatide [Mounjaro] 7.5 mg SQ EVERY 7TH DAY 01/13/25 Physician Discharge Instructions: Patient was admitted to hospital for chest pain. Troponins were negative x 3 and she is seen by cardiology recommends further evaluation outpatient. Patient stable for discharge and outpatient follow-up with cardiology next week. Followup: Rajan Deal MD [ACTIVE - CAN ADMIT] - 2-3 Days Pete Neff FNP [Primary Care Provider] -
[2025-01-13 16:12] VITALS: BP 124/72; TEMP 98
[2025-01-14] MEDS ORDERED: ENOXAPARIN 40 MG/0.4 ML SQ SCH (09:00)
[2025-01-14] MEDS ORDERED: ASPIRIN EC 81 MG TAB PO SCH (09:00)
== END 2025-01-13 16:40 | disposition home or self-care (01) ==
LOC: ER 06:22 → 2ND 10:05
PROVIDERS: ADMIT Internal Medicine; ATTEND Internal Medicine
DX: R07.9 Chest pain, unspecified (principal); I10 Essential (primary) hypertension; F17.210 Nicotine dependence, cigarettes, uncomplicated
CPT/HCPCS: 93005; 93306; 85025; 80048; 36415; 80061; 84484 ×3; 83690; 83880; 71045; 96372; 96374; 99285; J1650; G0378